=== PATIENT | male | born 1940 | race Caucasian/White ===

== ENCOUNTER 2019-09-05 11:39 | Inpatient (IN) | payer MEDICARE, SELFPAY ==
[2019-09-05] VITALS (11 sets, daily range): BP systolic 93–148; BP diastolic 54–102; PULSE 80–108; RESP 20–30; TEMP 36.5–37; O2SAT 88–97; BMI 24.6
--- NOTE | ~2019-09-05 | XR_ITS ---
XR chest 2V DATE: 09/13/2019 12:21 INDICATION: Worsening lung sounds. Cough, shortness of breath, pneumonia, fluid overload TECHNIQUE: AP and lateral chest COMPARISON: 09/11/2019 AP and lateral chest FINDINGS: Again noted is elevated right leaf of diaphragm. There are patchy infiltrates in the left m id and both lower lung zones, relatively stable since 09/11/2019. Aortic calcification and unfolding. Scoliosis and degenerative changes of the thoracic and lumbar spine. IMPRESSION: Persistent bilateral infiltrates involving left mid and both lower lung zones Reviewed, dictated and finalized at location B. SCREEN CUTTER
--- NOTE | ~2019-09-05 | CT_ITS ---
EXAMINATION: CT brain wo con DATE: 09/08/2019 15:00 INDICATION: Confusion. TECHNIQUE: Computed tomography (CT) of the head was performed without intravenous contrast. The mA wa s adjusted according to patient size. Iterative reconstruction technique was employed. The dose-lengt h product was 681.00 mGy-cm. COMPARISON: Head CT 03/10/2019 FINDINGS: There are scattered areas of low attenuation in the cerebral white matter. There is no intr acranial hemorrhage, acute infarction, or abnormal intracranial mass lesion. The ventricles are lisbet l in size. There are likely changes of ocular lens replacement surgeries. There is mild mucosal thick ening in the paranasal sinuses. There is a trace right mastoid effusion. IMPRESSION: 1. Stable moderate nonspecific cerebral white matter disease, which likely represents chronic small v essel ischemic disease. Reviewed, dictated and finalized at location A. CTOR OF TEENAGE ACTIVITIES IMPRESSION: 1. Stable moderate nonspecific cerebral white matter disease, which likely repr esents chronic small vessel ischemic disease.
--- NOTE | ~2019-09-05 | CT_ITS ---
EXAMINATION: CT abdomen pelvis wo con EXAM DATE: 09/06/2019 10:00 INDICATION: Diarrhea. History of ulcerative colitis. TECHNIQUE: Spiral CT of the abdomen and pelvis was performed without contrast. Axial, coronal and s agittal images were reviewed. The dose-length product (DLP) for this examination was 729.95 mGy-cm. The exposure was tailored according to patient size (auto mA exposure control), and iterative recons truction (ASIR) was used as additional dose reduction technique. Comparison is made to prior examinat ion from 07/17/17. FINDINGS: Study is limited due to patient motion. The liver, spleen, adrenal glands and pancreas ar e unremarkable. Gallbladder is unremarkable. No biliary obstruction. Probable 5 mm left inferior ca lyceal stone. No ureteral stones or hydronephrosis. There are bilateral renal cysts, largest on the r ight side measuring 5 cm. The prostate is unremarkable. The bladder is unremarkable. There is no re troperitoneal or pelvic lymphadenopathy. There is moderate scattered arteriosclerotic disease. Ther e are moderate-sized left inguinal, small right inguinal and small umbilical fat-containing hernias. The appendix is normal. The stomach and small bowel are unremarkable. There is expected amount of c olonic stool. No free intraperitoneal gas. There is cardiomegaly. There is mildly dilated ascendi ng aorta. Patchy right basilar airspace disease, partly atelectasis but suspect also superimposed ed erika or pneumonia. There are trace bilateral pleural effusions. There are no osteoblastic or osteolyt ic lesions identified. Multiple right lateral rib fractures which appears subacute. There is advanced thoracolumbar spondylo sis. There is T12 chronic burst fracture unchanged. There is a fracture through the anterior superior aspect of the T8 vertebral body and the bridging thoracic diffuse idiopathic skeletal hyperostosis w ith sclerosis indicating this is subacute or chronic, but it is new compared to 2017. IMPRESSION: 1. Cardiomegaly, congestion, probable scattered basilar edema or pneumonia. 2. No acute intra-abdominal findings. 3. Fat-containing hernias. 4. Subacute and chronic fractures as above. Reviewed, dictated and finalized at location B. TION AND MEASUREMENT TECHNICIAN
--- NOTE | ~2019-09-05 | XR_ITS ---
EXAMINATION: XR chest 2V DATE: 09/11/2019 13:01 INDICATION: Pneumonia, influenza and hypoxia TECHNIQUE: frontal and lateral views of the chest were obtained. COMPARISON: Chest radiograph dated 09/06/2019 and 04/19/2019 FINDINGS: Chronic elevation of the right hemidiaphragm with colonic interposition. Airspace opacities in the le ft mid to lower and right lower lung zones. No pleural effusion or pneumothorax. The cardiomediastina l silhouette is within normal limits for AP technique. Thoracic dextroscoliosis with mild spondylosis . There are bridging osteophytes at multiple levels in the spine, consistent with diffuse idiopathic skeletal hyperostosis (DISH). Chronic T9 and L1 compression fractures with mild vertebral body height loss at both levels. IMPRESSION: 1. Mild opacities in the left mid to lower and right lower lung zones which could represent atelectas is, mild pulmonary edema, pneumonia or some combination thereof. 2. Chronic elevation of the right hemidiaphragm. Reviewed, dictated and finalized at location A. STANT CENTER MANAGER IMPRESSION: 1. Mild opacities in the left mid to lower and right lower lung zones which cou ld represent atelectasis, mild pulmonary edema, pneumonia or some combination t hereof. 2. Chronic elevation of the right hemidiaphragm.
--- NOTE | ~2019-09-05 | XR_ITS ---
XR chest 2V DATE: 09/05/2019 13:00 INDICATION: Cough and shortness of breath. TECHNIQUE: AP and lateral views COMPARISON: 04/19/2019 PA and lateral chest FINDINGS: Elevated right diaphragm with hepatic colonic interposition. There is mild infiltrate or atelectasis in the left mid and both lower lung zones. No pleural effusio n or pulmonary vascular congestion or pneumothorax is detected. Heart size appears within normal limits. There is aortic calcification. Diffuse idiopathic skeletal hyperostosis of the thoracolumbar spine. Moderate osteopenia. IMPRESSION: Mild infiltrate or atelectasis in the left mid and both lower lung zones Reviewed, dictated and finalized at location A. STRIPER
--- NOTE | ~2019-09-05 | XR_ITS ---
EXAMINATION: XR chest 2V DATE: 09/19/2019 15:29 INDICATION: Worsening breath sounds TECHNIQUE: AP and lateral views of the chest are obtained. COMPARISON: 09/13/2019 FINDINGS: Airspace opacities of the lung bases and left midlung zone persists without significant ap nge. There are trace pleural effusions. No pneumothorax is identified. There is stable cardiomegaly. There is mild thoracic spondylosis. IMPRESSION: 1. Unchanged airspace opacities of the lung bases and left midlung zone,, consistent with atelectasis and pneumonia. 2. Stable cardiomegaly. Reviewed, dictated and finalized at location A. ET MAKER IMPRESSION: 1. Unchanged airspace opacities of the lung bases and left midlung zone,, consi stent with atelectasis and pneumonia. 2. Stable cardiomegaly.
--- NOTE | ~2019-09-05 | CT_ITS ---
EXAMINATION: CT brain wo con DATE: 09/13/2019 11:44 INDICATION: Acute onset unresponsiveness with right facial droop TECHNIQUE: Computed tomography (CT) of the head was performed without intravenous contrast. Sagittal and coronal reconstructions were performed. The mA was adjusted according to patient size. Iterative reconstruction technique was employed. The dose-length product was 681.00 mGy-cm. COMPARISON: head CT dated 09/08/2019 FINDINGS: No acute intracranial hemorrhage, acute infarction or abnormal extra axial fluid collection. There is moderate scattered white matter hypoattenuation consistent with chronic small vessel ischemic diseas e. Symmetric prominence of the sulci and ventricles consistent with mild to moderate age-appropriate diffuse cerebral volume loss. No mass/mass effect. Changes of bilateral intraocular lens replacement. Trace right mastoid effusion. Mild mucosal thickening in the paranasal sinuses with small amount of likely dependently layering mucus in the ethmoid sinuses. IMPRESSION: 1. No acute intracranial process. Per stroke protocol at the cul-de-sac findings to the patient's cherry seChulaist at 11:51 AM. 2. Age-related changes including mild to moderate diffuse volume loss and moderate scattered white ma tter hypoattenuation consistent with chronic small vessel ischemic disease. Reviewed, dictated and finalized at location A. TRIMMER IMPRESSION: 1. No acute intracranial process. Per stroke protocol at the cul-de-sac finding s to the patient's [place] willis at 11:51 AM. 2. Age-related changes including mild to moderate diffuse volume loss and moder ate scattered white matter hypoattenuation consistent with chronic small vessel ischemic disease.
--- NOTE | ~2019-09-05 | US_ITS ---
EXAMINATION: US carotid duplex BI DATE: 09/13/2019 12:24 INDICATION: Transient ischemic episode with acute unresponsive episode and right facial weakness. TECHNIQUE: Grayscale, color Doppler, and pulsed Doppler images of the cervical carotid arteries were obtained. The degree of vessel stenosis is placed in one of the following categories: normal, <50%, 5 0-69%, >=70% but less than near-occlusion, near-occlusion, or total occlusion. Note that percent sten osis relative to normal distal artery lumen diameter is indirectly measured from velocity measurement s as described by Guero, et al. Radiology 2003; [id number]. COMPARISON: None. FINDINGS: RIGHT: The right common carotid artery (CCA) peak systolic velocity (PSV) is 56 cm/s. The right internal car otid artery (ICA) PSV is 58 cm/s. The right ICA end-diastolic velocity (EDV) is 27 cm/s. The right IC A/CCA PSV ratio is 1.0. Grayscale and color Doppler images yield an estimate of <50% diameter reducti on from plaque in the ICA. The external carotid artery (ECA) PSV is 53 cm/s. There is antegrade flow in the right vertebral artery. LEFT: The left CCA PSV is 62 cm/s. The left ICA PSV is 64 cm/s. The left ICA EDV is 24 cm/s. The left ICA/C CA PSV ratio is 1.0. Grayscale and color Doppler images yield an estimate of <50% diameter reduction from plaque in the ICA. The ECA PSV is 60 cm/s. There is antegrade flow in the left vertebral artery. IMPRESSION: 1. <50% stenosis in the right internal carotid artery. 2. <50% stenosis in the left internal carotid artery. Reviewed, dictated and finalized at location A. CH WEAVER
--- NOTE | ~2019-09-05 | XR_ITS ---
EXAMINATION: XR chest 2V DATE: 09/06/2019 10:09 INDICATION: Pulmonary edema. Worsened lung sounds. TECHNIQUE: Frontal and lateral views of the chest were obtained. COMPARISON: Chest 2 views 09/05/2019, 10/28/2013, CT abdomen and pelvis 09/06/2019 FINDINGS: Again seen is chronic elevation of right hemidiaphragm. There are airspace opacities at rig ht lung base and in left mid and lower lung zones. No pleural effusion or pneumothorax. The heart siz e is normal. IMPRESSION: 1. Chronic elevation of right hemidiaphragm with airspace opacities at right lung base, likely atelec tasis. 2. Unchanged mild airspace opacities in left mid and lower lung zones, consistent with atelectasis ve rsus pulmonary edema versus pneumonia. Reviewed, dictated and finalized at location A. WORKER IMPRESSION: 1. Chronic elevation of right hemidiaphragm with airspace opacities at right naty ng base, likely atelectasis. 2. Unchanged mild airspace opacities in left mid and lower lung zones, consiste nt with atelectasis versus pulmonary edema versus pneumonia.
--- NOTE | ~2019-09-05 | US_ITS ---
EXAMINATION: US venous doppler LE EXAM DATE: 09/14/2019 15:41 INDICATION: Pulmonary embolism right upper lobe. TECHNIQUE: Multiple grayscale, color flow and Doppler images of the lower extremity deep venous syste ms bilaterally were obtained and reviewed. There is no prior study for comparison. FINDINGS: RIGHT SIDE Common femoral: -------- Normal. Profunda femoral: ------- Normal. Femoral: Normal. Popliteal: Normal. Posterior tibial: --------- Normal. Peroneal: Normal. Gastrocnemius: Not visualized. Soleus: Not visualized. Greater saphenous: ----- Normal. Lesser saphenous: ------ Not visualized. LEFT SIDE Common femoral: -------- Normal. Profunda femoral: ------- Normal. Femoral: Normal. Popliteal: Normal. Posterior tibial: --------- Normal. Peroneal: Normal. Gastrocnemius: Not visualized. Soleus: Thrombosed. Greater saphenous: ----- Normal. Lesser saphenous: ------Thrombosed. IMPRESSION: 1. Positive for left soleus and saphenous venous thrombus. 2. No right DVT. Reviewed, dictated and finalized at location A. CTOR OF EARLY CHILDHOOD
--- NOTE | ~2019-09-05 | MR_ITS ---
EXAMINATION: MR brain/brain stem wo con EXAM DATE: 09/14/2019 13:06 INDICATION: Unresponsive. TECHNIQUE: Magnetic resonance imaging (MRI) of the brain/brain stem obtained without contrast. Sagitt al T1, axial diffusion, gradient echo (T2*), T1, T2, FLAIR sequences obtained. Comparison is made to prior examination from 05/22/2016. FINDINGS: There are no areas of restricted diffusion to suggest acute infarction. There is no acute hemorrhage seen on the T2*, a hemosiderin sensitive sequence. No intraparenchymal brain mass lesion. There is moderate periventricular and subcortical T2/FLAIR signal hyperintensity, nonspecific but pr obably related to small vessel ischemic disease (microangiopathy). There is moderate prominence of the sulci and ventricles related to cerebral atrophy. There are no extra-axial collections. Flow v oids are seen in the cerebral arteries on the T2-weighted sequences consistent with their expected pa tency. Patient has had bilateral ocular lens surgery. Soft tissue is unremarkable. There is mild t o moderate right sphenoid mucoperiosteal thickening with some fluid in the sinus. Trace mastoid fluid . IMPRESSION: 1. No acute intracranial findings. 2. Chronic age related findings. 3. Right sphenoid mucoperiosteal thickening and some fluid. Reviewed, dictated and finalized at location A. ISITION MANAGER
--- NOTE | ~2019-09-05 | CT_ITS ---
EXAMINATION: CTA chest PE protocol EXAM DATE: 09/14/2019 14:14 INDICATION: Hypoxia. Passed out. TECHNIQUE: Spiral CTA of the chest (pulmonary arteries) was performed with 100 cc Omnipaque 350 intr avenous contrast injection. Images were acquired during the pulmonary arterial phase. Coronal maxi mum intensity projection 3D-reconstructions were created by the technologist on dedicated workstation . Axial, coronal and sagittal reformatted images were reviewed. The dose-length product (DLP) for t his examination was 684.01 mGy-cm. The exposure was tailored according to patient size (auto mA exp osure control), and iterative reconstruction (ASIR) was used as additional dose reduction technique. 04/21/2019 FINDINGS: There is interval development of small pulmonary embolism in the right main pulmonary art jelena extending into several right upper lobe segmental arteries, low clot burden. No thoracic aortic d issection. There is patchy left-sided groundglass airspace disease which could be pneumonia or edema , new finding compared to prior study. There is elevated right hemidiaphragm with adjacent subsegment al atelectasis of the right lower lobe. The main, central pulmonary arteries are dilated which can indicate elevated pulmonary arterial press ure, pulmonary arterial hypertension. There are no pleural or pericardial effusions. Tracheobronc hial tree is patent. There is no mediastinal, hilar or axillary lymphadenopathy. There is no pneu mothorax. There is cardiomegaly. There is mild coronary arterial calcification, arterial sclerosis . Upper abdomen is unremarkable. There is thoracic spondylosis without osteoblastic or osteolytic lesions identified. IMPRESSION: 1. Positive for small right-sided pulmonary embolism. 2. Patchy left-sided groundglass pneumonia or edema. 3. Chronic right hemidiaphragm elevation, adjacent atelectasis. 4. Cardiomegaly. 5. Dilated pulmonary arteries. I left a message for Dr. Urmila Cohen PA-C on 09/14/2019 14:24 CANINE SERVICE TEACHER. I provided my direct number, requested call back to discuss findings in this case. I discussed pulmonary embolism with Renate with hospitalist service at 09/14/2019 14:49 CANINE SERVICE TEACHER. Reviewed, dictated and finalized at location A. NE SERVICE TEACHER IMPRESSION: 1. Positive for small right-sided pulmonary embolism. 2. Patchy left-sided groundglass pneumonia or edema. 3. Chronic right hemidiaphragm elevation, adjacent atelectasis. 4. Cardiomegaly. 5. Dilated pulmonary arteries. I left a message for Dr. Urmila Cohen PA-C on 09/14/2019 14:24 CANINE SERVICE TEACHER. I prov ided my direct number, requested call back to discuss findings in this case. I discussed pulmonary embolism with Renate with hospitalist service at 09/14/19 14:49 CANINE SERVICE TEACHER.
--- NOTE | 2019-09-05 11:43 | ECG_ITS ---
Measurements Intervals May Rate: 106 P: IL: 0 QRS: -16 QRSD: 94 T: -12 QT: 318 QTc: 424 Interpretive Statements SINUS TACHYCARDIA ATRIAL PREMATURE COMPLEX RSR' IN V1 OR V2, CONSIDER RIGHT VENTRICULAR HYPERTROPHY OR RIGHT VCD VOLTAGE CRITERIA FOR LVH MINIMAL Q WAVES- LATERAL LEADS BORDERLINE ST-T WAVE ABNORMALITY- DIFFUSE LEADS BASELINE ARTIFACT- I, II, III, AVR, AVL, AVF, V1-V6 ABNORMAL ECG Electronically Signed On 09-05-2019 16:34:53 PLUMBING ASSEMBLER INSTALLER by Nolan Valladares D.O.
[2019-09-05 12:14] LABS: Basophils Percent Auto 0.1 % (0.2-1.2); Eosinophils Percent Auto 0.2 % (0-4.4); Hematocrit 34.5 % (42.0-52.0); Hemoglobin 10.6 g/dL (14.0-18.0); Immature Granulocyte Absolute 0.08 K/mm3 (0.00-0.031); Lymphocytes Absolute Auto 0.36 K/mm3 (0.9-3.2); Lymphocytes Percent Auto 4.4 % (18.3-44.2); Mean Corpuscular HGB Conc 30.7 g/dl (32-36); Mean Corpuscular Hemoglobin 29.4 pg (26-34); Mean Corpuscular Volume 95.6 fl (80-100); Mean Platelet Volume 10.9 fl (7.4-10.4); Monocytes Absolute Auto 0.4 K/mm3 (0.1-0.6); Monocytes Percent Auto 4.9 % (2.6-8.5); Neutrophils Absolute Auto 7.2 K/mm3 (1.3-6.7); Neutrophils Percent Auto 89.4 % (45.5-73.1); Nucleated Red Blood Cells Perc 0.2 % (0.0-0.2); Platelet Count Result 128 k/mm3 (150-375); Red Blood Count 3.61 M/mm3 (4.6-6.20); Red Cell Distribution Width 18.5 % (11.5-14.5); White Blood Count 8.1 K/mm3 (4.5-10.0)
--- NOTE | 2019-09-05 12:23 | ED.AMS ---
HPI - Altered Mental Status General Chief Complaint: Altered Mental Status Stated Complaint: ams/cough Time Seen by Provider: 09/05/19 12:16 Related Data Home Medications Medication Instructions Recorded Confirmed Poly-Iron EVERY OTHER DAY 06/03/19 aspirin 81 mg PO DAILY 06/03/19 06/10/19 carvedilol 3.125 mg PO BID 06/03/19 06/10/19 cholecalciferol (vitamin D3) 4,000 unit PO DAILY 06/03/19 06/10/19 [Vitamin D3] cyanocobalamin (vitamin B-12) 1,000 mcg PO DAILY 06/03/19 06/10/19 [Vitamin B-12] denosumab [Prolia] 60 mg SUBCUT [id number] 06/03/19 06/10/19 folic acid 1 mg PO DAILY 06/03/19 06/10/19 losartan 100 mg PO DAILY 06/03/19 06/10/19 mesalamine [Lialda] 1.2 g PO QID 06/03/19 multivitamin 1 tablet PO DAILY 06/03/19 06/10/19 prednisone 40 mg PO DAILY 06/03/19 06/10/19 azathioprine 150 mg PO DAILY 09/05/19 gabapentin 600 mg PO DAILY 09/05/19 Allergies Allergy/AdvReac Type Severity Reaction Status Date / Time No Known Allergies Allergy Unknown Verified 09/05/19 11:50 [facility] Past Medical History Medical History (Updated 09/05/19 @ 12:26 by Bart Messer) Cataracts, bilateral Cirrhosis GERD (gastroesophageal reflux disease) H/O: HTN (hypertension) Hx of ulcerative colitis Hypertension OA (osteoarthritis) Peripheral neuropathy Ulcerative colitis Umbilical hernia Surgical History Surgical History (Updated 09/05/19 @ 12:26 by Bart Messer) History of umbilical hernia repair Hx of bilateral cataract extraction Social History Social History (Updated 09/05/19 @ 12:27 by Bart Messer) Smoking status: Never smoker Gender identity (if verbalized by the patient): Male Comments PCP: Dr. Lane. Course Vital Signs Vital signs: Vital Signs Temperature 98.6 F 09/05/19 11:40 Pulse Rate 108 H 09/05/19 11:40 Respiratory Rate 30 H 09/05/19 11:40 Blood Pressure 148/102 H 09/05/19 11:40 Pulse Oximetry 88 L 09/05/19 11:40 Temperature 98.6 F 09/05/19 11:40 Pulse Rate 102 H 09/05/19 11:44 Respiratory Rate 20 09/05/19 11:44 Blood Pressure 148/102 H 09/05/19 11:40 Pulse Oximetry 97 09/05/19 11:44 MDM - Altered Mental Status Lab Data Result diagrams: 09/05/19 12:04 09/05/19 12:04 Labs: Lab Results 09/05/19 09/05/19 Range/Units 12:04 12:04 WBC Pending RBC Pending Hgb Pending Hct Pending MCV Pending MCH Pending MCHC Pending RDW Pending Plt Count Pending MPV Pending Immature Gran % (Auto) Pending Neut % (Auto) Pending Lymph % (Auto) Pending Bullock % (Auto) Pending Eos % (Auto) Pending Baso % (Auto) Pending Lymph # (Auto) Pending Bullock # (Auto) Pending Eos # (Auto) Pending Baso # (Auto) Pending Abs Immat Gran (auto) Pending Absolute Neuts (auto) Pending Absolute Nucleated RBC Pending Nucleated RBC % Pending Sodium Pending Potassium Pending Chloride Pending Carbon Dioxide Pending BUN Pending Creatinine Pending Estim Creat Clear Calc Pending Estimated GFR Pending Glucose Pending Calcium Pending Total Bilirubin Pending AST Pending ALT Pending Alkaline Phosphatase Pending Total Protein Pending Albumin Pending Influenza A Screen Negative Reference Range: Negative Influenza B Screen Positive Reference Range: Negative Discharge Plan Discharge Prescriptions: No Action prednisone 20 mg Tablet 40 mg PO DAILY RF: 0 mesalamine [Lialda] 1.2 gram Tablet,Delayed Release (Dr/Ec) 1.2 g PO QID RF: 0 multivitamin Tablet 1 tablet PO DAILY RF: 0 cyanocobalamin (vitamin B-12) [Vitamin B-12] 1,000 mcg Tablet 1,000 mcg PO DAILY RF: 0 folic acid 1 mg Tablet 1 mg PO DAILY RF: 0 losartan 100 mg Tablet 100 mg PO DAILY RF: 0 Vitamin D3 4,000 unit Capsule 4,000 unit PO DAILY RF: 0 Poly-Iron
[2019-09-05 12:24] LABS: Alanine Aminotransferase 15 U/L (4-50); Albumin Level 3.1 g/dL (3.5-5.1); Alkaline Phosphatase 57 U/L (38-126); Aspartate Amino Transferase 32 U/L (17-59); Bilirubin,Total 0.8 mg/dL (0.2-1.3); Blood Urea Nitrogen 31 mg/dL (9-20); Calcium 8.7 mg/dL (8.4-10.2); Carbon Dioxide 32 mmol/L (22-30); Chloride 100 mmol/L (98-107); Estimated Glomerular Filt Rate > 60; Glucose 100 mg/dL (75-110); Potassium 3.3 mmol/L (3.4-5.0); Sodium 141 mmol/L (137-145)
--- NOTE | 2019-09-05 12:41 | ED.NAVMDI ---
HPI - Nausea/Vomiting/Diarrhea General Chief complaint: Nausea/Vomiting/Diarrhea Stated complaint: ams/cough Time Seen by Provider: 09/05/19 12:16 Source: patient, family () and RN notes reviewed Mode of arrival: EMS Limitations: no limitations History of Present Illness HPI Narrative: A 78 y/o male presents to the ED via EMS after having one episode of diarrhea this morning. He reports worsening associated generalized weakness and a dry cough since yesterday. He denies any ABD pain, rectal bleeding, changes in appetite, fevers, chills, N/V, and any other medical complaints at this time. MD elicited complaint: diarrhea Onset (ago): hour(s) (this morning) Associated nausea: No Associated abdominal pain: No Location of pain: none Associated symptoms: cough (dry) and weakness (generalized) Related Data Home Medications Medication Instructions Recorded Confirmed Poly-Iron EVERY OTHER DAY 06/03/19 aspirin 81 mg PO DAILY 06/03/19 06/10/19 carvedilol 3.125 mg PO BID 06/03/19 06/10/19 cholecalciferol (vitamin D3) 4,000 unit PO DAILY 06/03/19 06/10/19 [Vitamin D3] cyanocobalamin (vitamin B-12) 1,000 mcg PO DAILY 06/03/19 06/10/19 [Vitamin B-12] denosumab [Prolia] 60 mg SUBCUT [id number] 06/03/19 06/10/19 folic acid 1 mg PO DAILY 06/03/19 06/10/19 losartan 100 mg PO DAILY 06/03/19 06/10/19 mesalamine [Lialda] 1.2 g PO QID 06/03/19 multivitamin 1 tablet PO DAILY 06/03/19 06/10/19 prednisone 40 mg PO DAILY 06/03/19 06/10/19 azathioprine 150 mg PO DAILY 09/05/19 gabapentin 600 mg PO DAILY 09/05/19 Allergies Allergy/AdvReac Type Severity Reaction Status Date / Time No Known Allergies Allergy Unknown Verified 09/05/19 11:50 Review of Systems Review of Systems: All systems reviewed & are unremarkable except as noted in HPI and below Constitutional: Constitutional: Denies chills, Denies fatigue, Denies fever(s), Denies headache(s), Denies night sweats and Reports weakness (generalized) Eyes: Eyes: Denies change in vision, Denies loss of vision and Denies other visual disturbances ENT: Denies headache(s), Denies hoarseness, Denies epistaxis, Denies nasal congestion and Denies sore throat Cardiovascular: Cardiovascular: Denies chest pain, Denies leg edema, Denies palpitations and Denies dyspnea Respiratory: Respiratory: Reports cough (dry), Denies dyspnea and Denies wheezing Gastrointestinal: Gastrointestinal: Denies abdominal pain, Reports diarrhea (x1), Denies nausea and Denies vomiting Genitourinary: Genitourinary: Denies hematuria, Denies dysuria and Denies urinary frequency Musculoskeletal: Musculoskeletal: Denies abnormal gait, Denies deformity, Denies joint swelling, Denies muscle weakness and Denies numbness Integumentary/Breasts: Skin/Breast: Denies rash, Denies unusual bruising and Denies wounds Neurologic: Denies abnormal gait, Denies headache(s), Denies focal weakness, Denies loss of vision and Denies numbness Psychiatric: Psychiatric: Reports no additional psychiatric complaints Endocrine: Endocrine: Denies fatigue and Denies palpitations Hematologic/Lymphatic: Hematologic/Lymphatic: Denies easy bleeding and Denies easy bruising Allergic/Immunologic: Allergic/Immunologic: Denies wheezing PMFSH Past Medical History Medical History (Updated 09/05/19 @ 15:31 by Volodymyr Figueroa MD) Cataracts, bilateral Cirrhosis GERD (gastroesophageal reflux disease) H/O: HTN (hypertension) Hx of ulcerative colitis Hypertension OA (osteoarthritis) Peripheral neuropathy Ulcerative colitis Umbilical hernia Surgical History Surgical History (Updated 09/05/19 @ 12:26 by Bart Messer) History of umbilical hernia repair Hx of bilateral cataract extraction Social History Social History (Updated 09/05/19 @ 12:27 by Bart Messer) Smoking status: Never smoker Gender identity (if verbalized by the patient): Male Exam Const: General: healthy appearing (elderly ), no acute distress and well developed Nutriti
[2019-09-05 12:50] LABS: Alveolar/Arterial O2 Gradient 51.7 mmHg; Base Excess ABG 2.4 mEq/l (+/-2.0); Fractional Inspired Oxygen 21 %; HCO3 ABG 26.7 mEq/l (22.0-26.0); Oxygen Content ABG 13.7 %vol (16.0-22.0); Oxyhemoglobin 84.6 % THb (90.0-100.0); PCO2 ABG 40.3 mmHg (35.0-45.0); PO2 FiO2 Ratio Arterial Blood 2.37 %; Total Hemoglobin 11.5 g/dL (12.0-18.0); pH ABG 7.439 (7.350-7.450)
[2019-09-05 12:52] LABS: Device ROOM AIR; Modified Allen's Test Pass; Oxygen Saturation ABG 86.6 % (95.0-100.0); PO2 ABG 49.8 mmHg (80.0-100.0); Site Drawn RIGHT RADIAL
[2019-09-05] MEDS: ALBUTEROL SULFATE NEB 2.5 MG/0.5 ML INH 5 MG INHALATION ×2 (13:01→21:13)
[2019-09-05] MEDS: IPRATROPIUM BR 0.02% INH SOLN 0.5 MG/2.5 ML VIAL INHALATION ×2 (13:01→21:13)
[2019-09-05] MEDS: AZITHROMYCIN 250 MG TABLET 500 MG PO (13:56)
[2019-09-05] MEDS: OSELTAMIVIR PHOSPHATE 75 MG CAP PO ×2 (13:56→21:30)
[2019-09-05] MEDS: ACETAMINOPHEN 500 MG TABLET 1000 MG PO (13:56)
[2019-09-05] MEDS: LACTATED RINGERS 1,000 ML 999 ML IV CONT (14:27)
[2019-09-05 14:44] LABS: Add Urine Microscopic? YES; Appearance Urine Clear (Clear); Bacteria Urine Trace /hpf; Bilirubin Urine Negative (Negative); Blood Urine 1+ (Negative); Calcium Oxalate Crystals Urine Present /hpf; Color Urine Yellow (Yellow); Glucose Urine UA Negative (Negative); Ketones Urine Negative (Negative); Leukocyte Esterase Ur Negative LEU/UL (Negative); Mucus Urine Few /lpf; Nitrate Urine Negative (Negative); Protein Urine 1+ mg/dL (Negative); RBC Urine 0-2 /hpf (0-2); Specific Grav Ur 1.023 (1.001-1.035); Squamous Epithelial Cell Urine Rare /hpf (Few); Urobilinogen Urine Negative mg/dL (<2.0)
[2019-09-05 15:37] LABS: Lactic Acid Reflex 1.4 mmol/L (0.7-2.1)
--- NOTE | 2019-09-05 15:45 | ADMGEN ---
This patient, Alex Wakefield II, was admitted to 2 Medical Room 258-01. Patient/family oriented to hospital policies and general routines including ID bracelet, bed and alarms, visiting hours, pain management, procedures, bathroom and other care routines, personal items, smoking policy, room service/diet, and visiting hours. Valuables list has been completed. Information on how to activate the Rapid Response Team has been discussed. Patient/Family are encouraged to report perceived risks to care and to ask questions if they do not understand what they are told or what they should do.
[2019-09-05] MEDS: LACTATED RINGERS 1,000 ML 125 ML IV CONT (16:18)
[2019-09-05] MEDS: HYDROCORTISONE SODIUM SUCCINATE 100 MG/2 ML VIAL IV PUSH (16:19)
[2019-09-05] MEDS: FAMOTIDINE 20 MG/2 ML VIAL IV PUSH (21:31)
[2019-09-06] VITALS (14 sets, daily range): BP systolic 120–180; BP diastolic 64–100; PULSE 20–89; RESP 18–77; TEMP 36.1–36.7; O2SAT 86–100; BMI 10.0
[2019-09-06] MEDS: LACTATED RINGERS 1,000 ML 125 ML IV CONT (01:56)
[2019-09-06] MEDS: IPRATROPIUM BR 0.02% INH SOLN 0.5 MG/2.5 ML VIAL INHALATION ×4 (04:00→20:31)
[2019-09-06] MEDS: ALBUTEROL SULFATE NEB 2.5 MG/0.5 ML INH 5 MG INHALATION ×4 (04:00→20:31)
[2019-09-06 06:07] LABS: Eosinophils Percent Auto 0.2 % (0-4.4); Hematocrit 32.1 % (42.0-52.0); Hemoglobin 9.7 g/dL (14.0-18.0); Immature Granulocyte Absolute 0.06 K/mm3 (0.00-0.031); Immature Platelet Fraction Pct 4.3 % (0.9-11.2); Lymphocytes Absolute Auto 0.55 K/mm3 (0.9-3.2); Lymphocytes Percent Auto 9.3 % (18.3-44.2); Mean Corpuscular HGB Conc 30.2 g/dl (32-36); Mean Corpuscular Hemoglobin 29.5 pg (26-34); Mean Corpuscular Volume 97.6 fl (80-100); Mean Platelet Volume 11.4 fl (7.4-10.4); Monocytes Absolute Auto 0.2 K/mm3 (0.1-0.6); Monocytes Percent Auto 2.7 % (2.6-8.5); Neutrophils Absolute Auto 5.2 K/mm3 (1.3-6.7); Neutrophils Percent Auto 86.8 % (45.5-73.1); Platelet Count Result 123 k/mm3 (150-375); Red Blood Count 3.29 M/mm3 (4.6-6.20); White Blood Count 5.9 K/mm3 (4.5-10.0)
[2019-09-06] MEDS: POTASSIUM CHLORIDE 20 MEQ TABLET 40 MEQ PO (06:13)
[2019-09-06 06:17] LABS: Blood Urea Nitrogen 28 mg/dL (9-20); Calcium 8.1 mg/dL (8.4-10.2); Carbon Dioxide 32 mmol/L (22-30); Chloride 98 mmol/L (98-107); Estimated CRCL calculation 72 ml/min; Estimated Glomerular Filt Rate > 60; Glucose 75 mg/dL (75-110); Potassium 3.2 mmol/L (3.4-5.0); Sodium 139 mmol/L (137-145)
--- NOTE | 2019-09-06 07:02 | PM.IMHP ---
H&P: HPI History of Present Illness Chief complaint: Influenza B/Pnuemonia/Hypoxia Narrative: Alex Wakefield II is a 78 year old male with a past medical history of ulcerative colitis, hypertension, and cirrhosis who presented emergency room for generalized aches and pains as well as diarrhea. Patient states that he came to the emergency room because he had 2 episodes of watery nonbloody diarrhea that started yesterday. This was associated with aching pains in his arms, back and legs and has been feeling fatigued. He said his was diagnosed with the influenza and he thinks he may have had influenza as well. He states that he started a prednisone taper for his ulcerative colitis about 30 days ago and that he sees Dr. Hewitt. He had a big flare at the time but has been improving but now he is having diarrhea. He has had a low appetite with this but no abdominal pain, rectal bleeding or cramping. He said his elbows have been painful and the right one has been swollen for at least 3 months. Since he has been the hospital he has developed a cough but has not really felt shortness of breath but has needed oxygen therapy which is not like him. He does not usually use oxygen at home. He denies fevers, chills, chest pain, abdominal pain, headache, nausea, vomiting, sore throat, or ear pain. He says that he feels unsteady on his feet at times but his last fall was around Thanksgiving. He has had some leg swelling for the last 3 months. This is not any better in the morning or at night and he has never been diagnosed with a blood clot or CHF that he knows of. At this time he says he feels really crackly and wheezy which is not like him. His cough is dry but occasionally produce a sputum. Review of Systems Review of Systems: All systems reviewed & are unremarkable except as noted in HPI and below PMFSH Past Medical History Medical History (Updated 09/06/19 @ 07:19 by Urmial Cohen PA-C) Cataracts, bilateral Cirrhosis GERD (gastroesophageal reflux disease) H/O: HTN (hypertension) Hx of ulcerative colitis Hypertension OA (osteoarthritis) Peripheral neuropathy Ulcerative colitis Umbilical hernia Surgical History Surgical History (Updated 09/06/19 @ 07:16 by Urmila Cohen PA-C) History of umbilical hernia repair Hx of bilateral cataract extraction Status post right partial knee replacement Family History Family History (Updated 09/05/19 @ 16:00 by Lala Macedo RN) Other Unknown family medical history Social History Social History (Updated 09/06/19 @ 07:16 by Urmila Cohen PA-C) Social History: Patient lives in were known OA with his . He is a nonsmoker and quit drinking alcohol and smoking cigarettes 40 years ago. His surrogate decision maker would be his Glo. Smoking packs per day: 2 Smoking cigarettes per day: 40.0 Years smoked: 30 Smoking pack-years: 60.00 Smoking status: Former smoker Tobacco type: cigarettes Alcohol intake: never Substance use: never Substance use type: does not use Gender identity (if verbalized by the patient): Male Spiritual care concerns: No Agree to blood products: Yes Meds Home Medications and Allergies Home Medications Medication Instructions Recorded Confirmed Type acetaminophen [Tylenol Arthritis 650 mg PO Q8H PRN 09/05/19 09/05/19 History Pain] aspirin 81 mg PO DAILY 09/05/19 09/05/19 History azathioprine 150 mg PO DAILY 09/05/19 09/05/19 History carvedilol [Coreg] 3.125 mg PO BID 09/05/19 09/05/19 History cholecalciferol (vitamin D3) 4,000 unit PO DAILY 09/05/19 09/05/19 History [Vitamin D3] cyanocobalamin (vitamin B-12) 1,000 mcg PO DAILY 09/05/19 09/05/19 History [Vitamin B-12] denosumab [Prolia] 60 mg SUBCUT [id number] 09/05/19 09/05/19 History folic acid 1 mg PO DAILY 09/05/19 09/05/19 History gabapentin 600 mg PO DAILY 09/05/19 09/05/19 History losartan 100 mg PO DAILY 09/05/19 09/05/19 History mesalamine
[2019-09-06] MEDS: FUROSEMIDE INJ 40 MG/4 ML VIAL IV PUSH (09:22)
[2019-09-06] MEDS: FAMOTIDINE 20 MG/2 ML VIAL IV PUSH ×2 (09:23→21:20)
[2019-09-06] MEDS: LOSARTAN POTASSIUM 100 MG TABLET PO (09:25)
[2019-09-06] MEDS: POLYSACCHARIDE IRON COMPLEX 150 MG CAPSULE 450 MG PO (09:25)
[2019-09-06] MEDS: carvediloL 3.125 MG TABLET PO ×2 (09:27→21:12)
[2019-09-06] MEDS: ASPIRIN 81 MG CHEWABLE TABLET PO (09:27)
[2019-09-06] MEDS: OSELTAMIVIR PHOSPHATE 75 MG CAP PO ×2 (09:27→21:12)
[2019-09-06] MEDS: AZITHROMYCIN 250 MG TABLET PO (09:27)
[2019-09-06] MEDS: GABAPENTIN 300 MG CAPSULE 600 MG PO (09:28)
[2019-09-06] MEDS: CYANOCOBALAMIN 1,000 MCG TABLET 1000 MCG PO (09:28)
[2019-09-06] MEDS: FOLIC ACID 1 MG TABLET PO (09:28)
[2019-09-06] MEDS: methylPREDNISolone SOD SUCC 125 MG VIAL 60 MG IV PUSH ×3 (09:30→21:18)
[2019-09-06 12:09] LABS: Alveolar/Arterial O2 Gradient 105.4 mmHg; Base Excess ABG 3.8 mEq/l (+/-2.0); Carboxyhemoglobin 0.3 % THb (0-2.0); Fractional Inspired Oxygen 28 %; HCO3 ABG 27.7 mEq/l (22.0-26.0); Methemoglobin ABG 0.2 %THb (0-1.5); Oxygen Content ABG 13.3 %vol (16.0-22.0); Oxyhemoglobin 85.4 % THb (90.0-100.0); PCO2 ABG 38.8 mmHg (35.0-45.0); PO2 FiO2 Ratio Arterial Blood 1.73 %; Reduced Hemoglobin 14.1 %THb (0-5.0); Total Hemoglobin 11.1 g/dL (12.0-18.0); pH ABG 7.471 (7.350-7.450)
[2019-09-06 12:12] LABS: PO2 ABG 48.5 mmHg (80.0-100.0)
[2019-09-06 12:13] LABS: Device NASAL CANNULA; Modified Allen's Test Pass; Oxygen Saturation ABG 86.8 % (95.0-100.0); Site Drawn RIGHT RADIAL
[2019-09-06 13:06] LABS: Hematocrit 33.1 % (42.0-52.0); Hemoglobin 10.1 g/dL (14.0-18.0); Mean Corpuscular HGB Conc 30.5 g/dl (32-36); Mean Corpuscular Hemoglobin 29.4 pg (26-34); Mean Corpuscular Volume 96.2 fl (80-100); Mean Platelet Volume 10.5 fl (7.4-10.4); Platelet Count Result 124 k/mm3 (150-375); Red Blood Count 3.44 M/mm3 (4.6-6.20); Red Cell Distribution Width 18.9 % (11.5-14.5); White Blood Count 7.6 K/mm3 (4.5-10.0)
[2019-09-06 13:19] LABS: Blood Urea Nitrogen 28 mg/dL (9-20); Calcium 8.3 mg/dL (8.4-10.2); Carbon Dioxide 33 mmol/L (22-30); Chloride 96 mmol/L (98-107); Estimated CRCL calculation 65 ml/min; Estimated Glomerular Filt Rate > 60; Glucose 80 mg/dL (75-110); Potassium 3.6 mmol/L (3.4-5.0); Sodium 138 mmol/L (137-145)
[2019-09-06 13:20] LABS: Lactic Acid Reflex 1.2 mmol/L (0.7-2.1)
[2019-09-06 13:20] LABS: Ammonia < 9 umol/L (9-30)
[2019-09-06 13:34] LABS: Band Neutrophils Percent 2 % (0-6); Lymphocytes Absolute Manual 0.38 K/mm3 (1.1-4.5); Monocytes Absolute Manual 0.07 K/mm3 (0.1-0.90); Monocytes Percent Manual 1 % (3-9); Neutrophils Absolute Manual 7.14 K/mm3 (1.3-6.7); Neutrophils Percent Manual 92 % (46-73); Stomatocytes 2+ (NORMAL); Total Cells Counted 100
[2019-09-06 13:49] LABS: Glucose Point of Care 70 (65-105)
[2019-09-06 14:01] LABS: Thyroid Stimulating Hormone Reflex 0.921 uIU/mL (0.465-4.68)
[2019-09-07] VITALS (7 sets, daily range): BP systolic 124–160; BP diastolic 75–100; PULSE 76–94; RESP 18–24; TEMP 36–36.1; O2SAT 97–99
[2019-09-07] LABS: Alveolar/Arterial O2 Gradient 53.2 mmHg; Base Excess ABG 3.8 mEq/l (+/-2.0); Fractional Inspired Oxygen 21 %; HCO3 ABG 28.3 mEq/l (22.0-26.0); Oxygen Content ABG 13.2 %vol (16.0-22.0); Oxyhemoglobin 83.4 % THb (90.0-100.0); Total Hemoglobin 11.3 g/dL (12.0-18.0); pH ABG 7.446 (7.350-7.450)
--- NOTE | 2019-09-07 | ECHO_ITS ---
Patient Info Name: Alex Wakefield Age: 78 years : 1940 Gender: Male Ht: 73 in Wt: 186 lbs BSA: 2.09 m2 HR: 74 bpm BP: 180 / 100 mmHg Technical Quality: Good Exam Date: 09/07/2019 10:48 AM Exam Location: [facility] Pul[facility] Patient Status: Inpatient Admit Date: 09/05/2019 Staff Ordering Physician: Urmila Cohen PA-C Logging Superintendent: Jonathan Calero RDCS, RT Attending Provider: Pilar North PA-C Referring Physician: Vicki ALVARADO; Exam Type: CA echo doppler color flow Study Info Indications R60.0 - Localized edema Complete two-dimensional, color flow and Doppler transthoracic echocardiogram is performed. Summary 1. Left ventricular chamber dimension is normal. 2. Left ventricular systolic function is normal, estimated at 60-65%. 3. There is mildly increased left ventricular wall thickness. 4. The left ventricular diastolic function is abnormal. 5. E' 0.04 suggests diastolic dysfunction based on tissue doppler. 6. Left atrial chamber dimension is mildly enlarged. 7. There is mild aortic valve sclerosis. 8. There is mild aortic valve regurgitation. 9. There is trace mitral valve regurgitation. 10. The aortic root size at the sinus of Valsalva is mildly dilated at 4.2 cm. Left Ventricle E' 0.04 suggests diastolic dysfunction based on tissue doppler. Left ventricular chamber dimension is normal. Left ventricular systolic function is normal, estimated at 60-65%. There is mildly increased left ventricular wall thickness. The left ventricular diastolic function is abnormal. Right Ventricle Right ventricular chamber dimension is normal. Right ventricular systolic function is normal. Left Atria Left atrial chamber dimension is mildly enlarged. Right Atria Right atrial chamber dimension is normal. Aortic Valve The aortic valve is trileaflet. There is mild aortic valve sclerosis. There is no aortic valve stenosis. There is mild aortic valve regurgitation. Pulmonic Valve There is no pulmonic regurgitation. Mitral Valve There is no mitral valve stenosis. There is trace mitral valve regurgitation. Tricuspid Valve There is no tricuspid valve regurgitation. Pericardium/Pleural There is no pericardial effusion. Inferior Vena Cava Normal inferior vena cava with >50% collapse upon inspiration consistent with normal right atrial pressure, 5 mmHg. Aorta The aortic root size at the sinus of Valsalva is mildly dilated at 4.2 cm. Left Ventricular Outflow Tract Name Value Normal LVOT 2D LVOT Diameter 2.2 cm LVOT Doppler LVOT Peak Velocity 70 cm/s LVOT Peak Gradient 2 mmHg LVOT Mean Gradient 1 mmHg LVOT VTI 19 cm LVOT VTI/AV VTI Ratio 0.7 LVOT Stroke Volume 72 ml LVOT CO 5.4 l/min LVOT CI 2.6 l/min/m2 Pulmonic Valve Name Value
[2019-09-07 00:01] LABS: PO2 ABG 46.2 mmHg (80.0-100.0)
[2019-09-07 00:02] LABS: Device ROOM AIR; Modified Allen's Test Pass; Oxygen Saturation ABG 83.9 % (95.0-100.0); Site Drawn RIGHT RADIAL
--- NOTE | 2019-09-07 00:10 | PC.NURSE ---
ABG OBTAINED AND CRITICAL RESULTS RECEIVED. PT FIGHTING CARE AND WILL NOT KEEP O2 IN PLACE. He keeps pulling it off. Pt is hallucinating and picking on his hand and throwing . Rapid response called.
--- NOTE | 2019-09-07 00:20 | PC.NURSE ---
Pt remains agited and will not put on O2 - O2 saturation in the 80'2. Nupur stated she would look at his chart after finishing with an ICU pt. Call placed to and she stated she would come in.
[2019-09-07] MEDS: methylPREDNISolone SOD SUCC 125 MG VIAL 60 MG IV PUSH ×4 (02:54→22:34)
[2019-09-07] MEDS: IPRATROPIUM BR 0.02% INH SOLN 0.5 MG/2.5 ML VIAL INHALATION ×2 (03:29→14:23)
[2019-09-07] MEDS: LEVALBUTEROL NEB 1.25 MG/3 ML 0.63 MG INHALATION ×2 (03:29→14:23)
[2019-09-07 06:05] LABS: Hematocrit 32.1 % (42.0-52.0); Hemoglobin 9.9 g/dL (14.0-18.0); Immature Platelet Fraction Pct 6.1 % (0.9-11.2); Mean Corpuscular HGB Conc 30.8 g/dl (32-36); Mean Corpuscular Hemoglobin 29.3 pg (26-34); Mean Platelet Volume 11.6 fl (7.4-10.4); Platelet Count Result 129 k/mm3 (150-375); Red Blood Count 3.38 M/mm3 (4.6-6.20); Red Cell Distribution Width 18.8 % (11.5-14.5); White Blood Count 6.4 K/mm3 (4.5-10.0)
[2019-09-07 06:40] LABS: Blood Urea Nitrogen 29 mg/dL (9-20); Calcium 8.3 mg/dL (8.4-10.2); Carbon Dioxide 32 mmol/L (22-30); Chloride 96 mmol/L (98-107); Estimated CRCL calculation 72 ml/min; Estimated Glomerular Filt Rate > 60; Glucose 85 mg/dL (75-110); Magnesium 1.9 mg/dL (1.6-2.3); Phosphorus 3.7 mg/dL (2.5-4.5); Potassium 3.8 mmol/L (3.4-5.0); Sodium 138 mmol/L (137-145)
[2019-09-07] MEDS: OSELTAMIVIR PHOSPHATE 75 MG CAP PO ×2 (08:29→22:34)
[2019-09-07] MEDS: FOLIC ACID 1 MG TABLET PO (08:29)
[2019-09-07] MEDS: LOSARTAN POTASSIUM 100 MG TABLET PO (08:29)
[2019-09-07] MEDS: GABAPENTIN 300 MG CAPSULE 600 MG PO (08:29)
[2019-09-07] MEDS: FAMOTIDINE 20 MG/2 ML VIAL IV PUSH ×2 (08:29→22:33)
[2019-09-07] MEDS: ASPIRIN 81 MG CHEWABLE TABLET PO (08:29)
[2019-09-07] MEDS: carvediloL 3.125 MG TABLET PO ×2 (08:30→22:35)
[2019-09-07] MEDS: CYANOCOBALAMIN 1,000 MCG TABLET 1000 MCG PO (08:30)
--- NOTE | 2019-09-07 16:19 | PM.IMPN ---
Progress Note: A&P Assessment and Plan (1) Pneumonia: Qualifiers: Laterality: unspecified laterality Lung location: unspecified part of lung Pneumonia type: due to unspecified organism Qualified Code(s): J18.9 - Pneumonia, unspecified organism Code(s): J18.9 - Pneumonia, unspecified organism Status: Acute Assessment and Plan: Influenza B positive with mild airspace opacities likely pneumonia. Continue abx coverage with azithromycin, rocephin, and vancomycin. Continue bronchodilator therapy with duo nebs, added pulmozyme and mucinex, PEP therapy today. Continue IV solu-medrol. Continue Tamiflu. Add another one time dose of IV Lasix today. Continue supplemental O2 and wean as tolerated to keep O2 saturations > 92%. Blood cultures pending with no growth to date. Ordered urine antigens. Sputum culture if he can produce one. (2) Influenza B: Code(s): J10.1 - Influenza due to other identified influenza virus with other respiratory manifestations Status: Acute Assessment and Plan: Continue Tamiflu. See above. (3) Acute respiratory failure: Qualifiers: Respiratory failure complication: hypoxia Qualified Code(s): J96.01 - Acute respiratory failure with hypoxia Code(s): J96.00 - Acute respiratory failure, unspecified whether with hypoxia or hypercapnia Status: Acute Assessment and Plan: Secondary to above. See plan above. (4) Altered mental status: Qualifiers: Altered mental status type: delirium Qualified Code(s): R41.0 - Disorientation, unspecified Code(s): R41.82 - Altered mental status, unspecified Status: Acute Assessment and Plan: Could be hospital delirium vs. early signs of dementia contributing, especially since he was better this morning and now getting more confused again this afternoon. Was given Zyprexa last night he became agitated. Will add on Seroquel for this evening. CT brain unable to be obtained yesterday since he was being combative, was held off this morning because he was feeling better but since he is getting more confused again this afternoon, will obtain CT brain in AM when hopefully he will be more cooperative. (5) Ulcerative colitis: Qualifiers: Digestive disease complication type: without complication Ulcerative colitis location: unspecified ulcerative colitis location Qualified Code(s): K51.90 - Ulcerative colitis, unspecified, without complications Code(s): K51.90 - Ulcerative colitis, unspecified, without complications Status: Acute Assessment and Plan: Patient was currently undergoing a prednisone taper for UC flare-up about a month ago. Was having diarrhea and abdominal pain, no mention of these today. CT abdomen/pelvis with no acute intra-abdominal abnormalities. Stool cultures are pending. (6) Hypertension: Qualifiers: Hypertension type: essential hypertension Qualified Code(s): I10 - Essential (primary) hypertension Code(s): I10 - Essential (primary) hypertension Status: Acute Assessment and Plan: Elevated, more stable this afternoon. Continue home Coreg and losartan. (7) Cirrhosis: Qualifiers: Ascites presence: without ascites Hepatic cirrhosis type: unspecified hepatic cirrhosis Qualified Code(s): K74.60 - Unspecified cirrhosis of liver Code(s): K74.60 - Unspecified cirrhosis of liver Status: Acute Assessment and Plan: Stable. No significant ascites noted on imaging. Liver enzymes are within normal limits. INR in AM. (8) Peripheral neuropathy: Qualifiers: Peripheral neuropathy type: polyneuropathy, unspecified Qualified Code(s): G62.9 - Polyneuropathy,
[2019-09-07] MEDS: QUEtiapine FUMARATE 12.5 MG TABLET PO (17:44)
[2019-09-07] MEDS: FUROSEMIDE INJ 40 MG/4 ML VIAL 20 MG IV PUSH (17:46)
[2019-09-08] VITALS (15 sets, daily range): BP systolic 140–180; BP diastolic 80–110; PULSE 70–85; RESP 20–322; TEMP 36.5; O2SAT 93–99
[2019-09-08] MEDS: LEVALBUTEROL NEB 1.25 MG/3 ML 0.63 MG INHALATION ×4 (00:22→21:49)
[2019-09-08] MEDS: IPRATROPIUM BR 0.02% INH SOLN 0.5 MG/2.5 ML VIAL INHALATION ×4 (00:22→21:49)
--- NOTE | 2019-09-08 00:29 | PCRCNOTE ---
ERIC Arias, req pt not be awakened due to very combative behavior
[2019-09-08] MEDS: LORAZEPAM INJ 2 MG/ML VIAL 1 MG IV PUSH (02:27)
--- NOTE | 2019-09-08 02:45 | PC.NURSE ---
0230 PT BECOMING -COMBATIVE, WILL NOT STAY IN BED, YELLING. ASIM CAGLE NP NOTIFIED ORDERS RECEIVED
[2019-09-08] MEDS: methylPREDNISolone SOD SUCC 125 MG VIAL 60 MG IV PUSH ×2 (03:27→09:54)
[2019-09-08 08:16] LABS: Prothrombin Time 12.8 Seconds (11.1-14.7)
[2019-09-08 08:19] LABS: Blood Urea Nitrogen 26 mg/dL (9-20); Carbon Dioxide 37 mmol/L (22-30); Chloride 97 mmol/L (98-107); Estimated CRCL calculation 59 ml/min; Estimated Glomerular Filt Rate > 60; Glucose 145 mg/dL (75-110); Lipase 30 U/L (23-300); Phosphorus 2.3 mg/dL (2.5-4.5); Potassium 3.2 mmol/L (3.4-5.0); Sodium 139 mmol/L (137-145)
[2019-09-08] MEDS: DORNASE ALFA INH SOLN 1 MG/ML 2.5 ML AMP 2.5 MG INHALATION ×2 (09:08→21:50)
[2019-09-08] MEDS: POLYSACCHARIDE IRON COMPLEX 150 MG CAPSULE 450 MG PO (09:52)
[2019-09-08] MEDS: ASPIRIN 81 MG CHEWABLE TABLET PO (09:52)
[2019-09-08] MEDS: GABAPENTIN 300 MG CAPSULE 600 MG PO (09:53)
[2019-09-08] MEDS: CYANOCOBALAMIN 1,000 MCG TABLET 1000 MCG PO (09:53)
[2019-09-08] MEDS: carvediloL 3.125 MG TABLET PO ×2 (09:53→21:07)
[2019-09-08] MEDS: FAMOTIDINE 20 MG/2 ML VIAL IV PUSH ×2 (09:53→21:08)
[2019-09-08] MEDS: FOLIC ACID 1 MG TABLET PO (09:53)
[2019-09-08] MEDS: OSELTAMIVIR PHOSPHATE 75 MG CAP PO (09:54)
[2019-09-08] MEDS: LOSARTAN POTASSIUM 100 MG TABLET PO (09:54)
--- NOTE | 2019-09-08 10:20 | PM.IMPN ---
Progress Note: A&P Assessment and Plan (1) Pneumonia: Qualifiers: Laterality: unspecified laterality Lung location: unspecified part of lung Pneumonia type: due to unspecified organism Qualified Code(s): J18.9 - Pneumonia, unspecified organism Code(s): J18.9 - Pneumonia, unspecified organism Status: Acute Assessment and Plan: Influenza B positive with mild airspace opacities likely pneumonia. Continue abx coverage. Continue bronchodilator therapy with duo nebs, pulmozyme and mucinex, PEP therapy. Continue IV solu-medrol. Continue Tamiflu. Add another one time dose of IV Lasix today. Stop Rocephin, stop vancomycin, start ceftaroline; continue azithromycin. Continue supplemental O2 and wean as tolerated to keep O2 saturations > 92%. Blood cultures pending with no growth to date. Ordered urine antigens. Sputum culture if he can produce one. Edit: Stopped tamiflu this afternoon in case it is contributing to his altered mental status. Blood gas this afternoon repeated due to lethargy; without much change compared to his ABG on arrival. (2) Influenza B: Code(s): J10.1 - Influenza due to other identified influenza virus with other respiratory manifestations Status: Acute Assessment and Plan: See above. (3) Acute respiratory failure: Qualifiers: Respiratory failure complication: hypoxia Qualified Code(s): J96.01 - Acute respiratory failure with hypoxia Code(s): J96.00 - Acute respiratory failure, unspecified whether with hypoxia or hypercapnia Status: Acute Assessment and Plan: Secondary to above. See plan above. (4) Altered mental status: Qualifiers: Altered mental status type: delirium Qualified Code(s): R41.0 - Disorientation, unspecified Code(s): R41.82 - Altered mental status, unspecified Status: Acute Assessment and Plan: Could be hospital delirium vs. early signs of dementia contributing, especially since he was better this morning and now getting more confused again this afternoon. Was given Zyprexa the other night when he became agitated. Lower dose seroquel was added last night but he is lethargic today. Nursing reports he was screaming last night and confused. CT brain shows no acute findings. Stopped tamiflu this afternoon in case it is contributing? Repeat ABG this afternoon without much change. Neurology consulted - appreciate recommendations. (5) Ulcerative colitis: Qualifiers: Digestive disease complication type: without complication Ulcerative colitis location: unspecified ulcerative colitis location Qualified Code(s): K51.90 - Ulcerative colitis, unspecified, without complications Code(s): K51.90 - Ulcerative colitis, unspecified, without complications Status: Acute Assessment and Plan: Patient was currently undergoing a prednisone taper for UC flare-up about a month ago. Was having diarrhea on arrival, no diarrhea the last [address] abdomen/pelvis with no acute intra-abdominal abnormalities. C diff is positive. Started fidaxomicin. (6) Hypertension: Qualifiers: Hypertension type: essential hypertension Qualified Code(s): I10 - Essential (primary) hypertension Code(s): I10 - Essential (primary) hypertension Status: Acute Assessment and Plan: Continue home Coreg and losartan. Continue monitoring BP. Hydralazine PRN. (7) Cirrhosis: Qualifiers: Ascites presence: without ascites Hepatic cirrhosis type: unspecified hepatic cirrhosis Qualified Code(s): K74.60 - Unspecified cirrhosis of liver Code(s): K74.60 - Unspecified cirrhosis of liver Status: Acute Assessment and Plan: Stable. No significant ascites noted on im
[2019-09-08] MEDS: POTASSIUM CHLORIDE 20 MEQ TABLET 40 MEQ PO (13:12)
--- NOTE | 2019-09-08 15:30 | PCOTNOTE ---
Addendum entered by AMANUEL Milton 09/09/19 14:35: Note completed in error. Original Note: The patient treatment was not able to be completed on 09/08/19. Will plan to continue treatment per plan of care.
--- NOTE | 2019-09-08 15:38 | PC.NURSE ---
Patient very lethargic. Arouses easily to name but cannot stay awake. Audible congestion noted at bedside. Labored breathing noted as well. VSS other than BP which is elevated at 180/100. O2 sat 95-100% on 2 liters per nasal cannula. Called Pilar FLYNN and notified her of assessment and concerns. She states she will come to assess the patient. She also states she will order prn Hydralazine for elevated BP. at bedside and aware of plan.
[2019-09-08 16:43] LABS: Alveolar/Arterial O2 Gradient 91.3 mmHg; Base Excess ABG 6.7 mEq/l (+/-2.0); Device NASAL CANNULA; Fractional Inspired Oxygen 28 %; HCO3 ABG 31.8 mEq/l (22.0-26.0); Oxygen Saturation ABG 87.6 % (95.0-100.0); Oxyhemoglobin 84.8 % THb (90.0-100.0); PCO2 ABG 47.8 mmHg (35.0-45.0); PO2 ABG 51.9 mmHg (80.0-100.0); PO2 FiO2 Ratio Arterial Blood 1.85 %; Site Drawn RIGHT BRACHIAL; Total Hemoglobin 10.9 g/dL (12.0-18.0); pH ABG 7.441 (7.350-7.450)
[2019-09-08] MEDS: hydrALAZINE HCL 20 MG/ML VIAL 10 MG IV PUSH (17:01)
[2019-09-08] MEDS: methylPREDNISolone SOD SUCC 40 MG VIAL IV PUSH (17:41)
[2019-09-08 18:44] LABS: Vancomycin Trough 11.1 ug/mL (10.0-20.0)
[2019-09-08] MEDS: FIDAXOMICIN 200 MG TABLET PO (21:08)
[2019-09-09] VITALS (16 sets, daily range): BP systolic 149–180; BP diastolic 86–91; PULSE 77–88; RESP 18–24; TEMP 36.3–36.7; O2SAT 95–97
[2019-09-09] MEDS: methylPREDNISolone SOD SUCC 40 MG VIAL IV PUSH ×3 (02:10→21:21)
[2019-09-09] MEDS: IPRATROPIUM BR 0.02% INH SOLN 0.5 MG/2.5 ML VIAL INHALATION ×4 (03:23→23:00)
[2019-09-09] MEDS: LEVALBUTEROL NEB 1.25 MG/3 ML 0.63 MG INHALATION ×4 (03:23→23:00)
[2019-09-09] MEDS: hydrALAZINE HCL 20 MG/ML VIAL 10 MG IV PUSH (04:58)
[2019-09-09 05:54] LABS: Hematocrit 32.3 % (42.0-52.0); Immature Platelet Fraction Pct 6.3 % (0.9-11.2); Mean Corpuscular Hemoglobin 28.7 pg (26-34); Mean Corpuscular Volume 92.6 fl (80-100); Mean Platelet Volume 11.4 fl (7.4-10.4); Platelet Count Result 140 k/mm3 (150-375); Red Blood Count 3.49 M/mm3 (4.6-6.20); Red Cell Distribution Width 18.6 % (11.5-14.5); White Blood Count 7.8 K/mm3 (4.5-10.0)
[2019-09-09 06:14] LABS: Blood Urea Nitrogen 28 mg/dL (9-20); Calcium 8.2 mg/dL (8.4-10.2); Carbon Dioxide 35 mmol/L (22-30); Chloride 100 mmol/L (98-107); Estimated CRCL calculation 65 ml/min; Estimated Glomerular Filt Rate > 60; Glucose 132 mg/dL (75-110); Magnesium 2.1 mg/dL (1.6-2.3); Phosphorus 2.5 mg/dL (2.5-4.5); Potassium 3.5 mmol/L (3.4-5.0); Sodium 139 mmol/L (137-145)
[2019-09-09] MEDS: DORNASE ALFA INH SOLN 1 MG/ML 2.5 ML AMP 2.5 MG INHALATION ×2 (08:37→23:00)
[2019-09-09] MEDS: carvediloL 3.125 MG TABLET PO ×2 (09:04→21:20)
[2019-09-09] MEDS: GABAPENTIN 300 MG CAPSULE 600 MG PO (09:04)
[2019-09-09] MEDS: FOLIC ACID 1 MG TABLET PO (09:04)
[2019-09-09] MEDS: CYANOCOBALAMIN 1,000 MCG TABLET 1000 MCG PO (09:04)
[2019-09-09] MEDS: FIDAXOMICIN 200 MG TABLET PO ×2 (09:04→21:21)
[2019-09-09] MEDS: LOSARTAN POTASSIUM 100 MG TABLET PO (09:04)
[2019-09-09] MEDS: ASPIRIN 81 MG CHEWABLE TABLET PO (09:04)
[2019-09-09] MEDS: FAMOTIDINE 20 MG/2 ML VIAL IV PUSH ×2 (09:04→21:21)
--- NOTE | 2019-09-09 13:24 | WPDCDIQUERY2 ---
CDI Query Clarification Request - C diff is positive. Started fidaxomicin has been documented. Please clarify if there is a corresponding diagnosis for above.
--- NOTE | 2019-09-09 14:53 | PM.IMPN ---
Progress Note: A&P Assessment and Plan (1) Pneumonia: Qualifiers: Laterality: unspecified laterality Lung location: unspecified part of lung Pneumonia type: due to unspecified organism Qualified Code(s): J18.9 - Pneumonia, unspecified organism Code(s): J18.9 - Pneumonia, unspecified organism Status: Acute Assessment and Plan: Influenza B positive with mild airspace opacities likely pneumonia. Continue abx coverage. Continue bronchodilator therapy with duo nebs, pulmozyme and mucinex, PEP therapy. Taper Solu-medrol. Stopped Tamiflu due to confusion. Continue ceftaroline and azithromycin. Continue supplemental O2 and wean as tolerated to keep O2 saturations > 92%. Improving with decreased O2 requirement. Blood cultures pending with no growth to date. Ordered urine antigens. Sputum culture if he can produce one. (2) Influenza B: Code(s): J10.1 - Influenza due to other identified influenza virus with other respiratory manifestations Status: Acute Assessment and Plan: See above. (3) Acute respiratory failure: Qualifiers: Respiratory failure complication: hypoxia Qualified Code(s): J96.01 - Acute respiratory failure with hypoxia Code(s): J96.00 - Acute respiratory failure, unspecified whether with hypoxia or hypercapnia Status: Acute Assessment and Plan: Secondary to above. See plan above. (4) Altered mental status: Qualifiers: Altered mental status type: delirium Qualified Code(s): R41.0 - Disorientation, unspecified Code(s): R41.82 - Altered mental status, unspecified Status: Acute Assessment and Plan: Much improved today after stopping Tamiflu. Previously he had been very confused and lethargic, trying to get out of bed and being combative with staff at times. Was treated with zyprexa and seroquel in days prior but no additional meds last night or today. Suspect metabolic encephalopathy as a result of tamiflu vs. hospital delirium. Neurology was consulted - appreciate input. (5) Ulcerative colitis: Qualifiers: Digestive disease complication type: without complication Ulcerative colitis location: unspecified ulcerative colitis location Qualified Code(s): K51.90 - Ulcerative colitis, unspecified, without complications Code(s): K51.90 - Ulcerative colitis, unspecified, without complications Status: Acute Assessment and Plan: Patient was currently undergoing a prednisone taper for UC flare-up about a month ago. His does of mesalamine was recently increased which patient and report has caused him to sleep all day for weeks. Held mesalamine here for now. CT abdomen/pelvis with no acute intra-abdominal abnormalities. (6) Stool culture positive for Clostridium difficile: Code(s): R19.5 - Other fecal abnormalities Status: Acute Assessment and Plan: Not isolated for such since he has not had diarrhea for the last 4 days but will treat based on his immunocompromised status from steroids. Continue Fidaxamicin (day 2 of 10). (7) Hypertension: Qualifiers: Hypertension type: essential hypertension Qualified Code(s): I10 - Essential (primary) hypertension Code(s): I10 - Essential (primary) hypertension Status: Acute Assessment and Plan: Continue home Coreg and losartan. Continue monitoring BP. Hydralazine PRN. BP elevated this morning. (8) Cirrhosis: Qualifiers: Ascites presence: without ascites Hepatic cirrhosis type: unspecified hepatic cirrhosis Qualified Code(s): K74.60 - Unspecified cirrhosis of liver Code(s): K74.60 - Unspecified cirrhosis of liver Status: Acute Assessment and Plan: Sta
--- NOTE | 2019-09-09 17:56 | PM.CNPUL ---
Assessment and Plan Assessment and plan (1) Acute respiratory failure: Qualifiers: Respiratory failure complication: hypoxia Qualified Code(s): J96.01 - Acute respiratory failure with hypoxia Code(s): J96.00 - Acute respiratory failure, unspecified whether with hypoxia or hypercapnia Status: Acute Assessment and Plan: Due to influenza B and secondary pneumonia; gradual improvement. Spoke with the patient and his at the bedside, this can take a while to resolve, now on the right meds. He has clear draiange in the psterior pharynx, and using the Cornet valve may help with getting this cleared from the airway. (2) Pneumonia: Qualifiers: Laterality: unspecified laterality Lung location: unspecified part of lung Pneumonia type: due to unspecified organism Qualified Code(s): J18.9 - Pneumonia, unspecified organism Code(s): J18.9 - Pneumonia, unspecified organism Status: Acute Assessment and Plan: No pathogen identified (3) Influenza B: Code(s): J10.1 - Influenza due to other identified influenza virus with other respiratory manifestations Status: Acute Assessment and Plan: He did have the vaccine this season. Had Influenza follwed by probably pneumonia, slow recovery, improved O2 need, increased activity. (4) Hypoxia: Code(s): R09.02 - Hypoxemia Status: Acute Assessment and Plan: O2 need is lower, 1 L/minute. History of Present Illness History of Present Illness Consult date: 09/10/19 Requesting physician: Pilar North PA-C Reason for consult: pneumonia Chief complaint: Influenza B/Pnuemonia/Hypoxia Narrative: NEW CONSULT: Alex Wakefield is an 78 yo man admitted with influenza B and secondary pneumonia. His is at the bedside, assists with the history. He had a flu vaccine this year. He has RA, is not on DMARD for treatment. He developed symptoms, cough, shortness of breath, sputum production; on Tamiflu he became confused and combative, better after stopping Tamiflu. He is on weaning flow of O2, now 1 L/min. He has clear sputum in the back of his throat, and a history of nasal drainage. He quit smoking 40 years ago. Had pneumonia 5 years ago, treated as out-patient. Review of Systems Review of Systems: All systems reviewed & are unremarkable except as noted in HPI and below PMFSH Past Medical History Medical History (Updated 09/10/19 @ 11:05 by Pilar North PA-C) Cataracts, bilateral Cirrhosis GERD (gastroesophageal reflux disease) H/O: HTN (hypertension) Hx of ulcerative colitis Hypertension OA (osteoarthritis) Peripheral neuropathy Ulcerative colitis Umbilical hernia Surgical History Surgical History (Updated 09/06/19 @ 07:16 by Urmila Cohen PA-C) History of umbilical hernia repair Hx of bilateral cataract extraction Status post right partial knee replacement Family History Family History (Updated 09/05/19 @ 16:00 by Lala Macedo RN) Other Unknown family medical history Social History Social History (Updated 09/06/19 @ 07:16 by Urmila Cohen PA-C) Social History: Patient lives in were known OA with his . He is a nonsmoker and quit drinking alcohol and smoking cigarettes 40 years ago. His surrogate decision maker would be his Glo. Smoking packs per day: 2 Smoking cigarettes per day: 40.0 Years smoked: 30 Smoking pack-years: 60.00 Smoking status: Former smoker Tobacco type: cigarettes Alcohol intake: never Substance use: never Substance use type: does not use Gender identity (if verbalized by the patient): Male Spiritual care concerns: No Agree to blood products: Yes Meds Home Medications and Allergies Home Medications Medication Instructions Recorded Confirmed Type acetaminophen [Tylenol Arthritis 650 mg PO Q8H PRN 09/05/19 09/05/19 History Pain] aspirin 81 mg PO DAILY 09/05/19 09/05/19 History azathiopri
[2019-09-10] VITALS (15 sets, daily range): BP systolic 140–200; BP diastolic 70–110; PULSE 70–93; RESP 16–20; TEMP 36.1–37; O2SAT 90–99
[2019-09-10] MEDS: LEVALBUTEROL NEB 1.25 MG/3 ML 0.63 MG INHALATION ×4 (03:42→19:51)
[2019-09-10] MEDS: IPRATROPIUM BR 0.02% INH SOLN 0.5 MG/2.5 ML VIAL INHALATION ×4 (03:42→19:51)
[2019-09-10 06:52] LABS: Blood Urea Nitrogen 38 mg/dL (9-20); Carbon Dioxide 33 mmol/L (22-30); Chloride 97 mmol/L (98-107); Estimated CRCL calculation 54 ml/min; Estimated Glomerular Filt Rate > 60; Glucose 143 mg/dL (75-110); Magnesium 2.1 mg/dL (1.6-2.3); Potassium 3.8 mmol/L (3.4-5.0); Sodium 137 mmol/L (137-145)
[2019-09-10] MEDS: ASPIRIN 81 MG CHEWABLE TABLET PO (09:40)
[2019-09-10] MEDS: CYANOCOBALAMIN 1,000 MCG TABLET 1000 MCG PO (09:41)
[2019-09-10] MEDS: POLYSACCHARIDE IRON COMPLEX 150 MG CAPSULE 450 MG PO (09:41)
[2019-09-10] MEDS: FAMOTIDINE 20 MG/2 ML VIAL IV PUSH ×2 (09:41→22:11)
[2019-09-10] MEDS: LOSARTAN POTASSIUM 100 MG TABLET PO (09:42)
[2019-09-10] MEDS: FOLIC ACID 1 MG TABLET PO (09:42)
[2019-09-10] MEDS: methylPREDNISolone SOD SUCC 40 MG VIAL IV PUSH ×2 (09:42→22:11)
[2019-09-10] MEDS: FIDAXOMICIN 200 MG TABLET PO ×2 (09:42→22:11)
[2019-09-10] MEDS: GABAPENTIN 300 MG CAPSULE 600 MG PO (09:42)
[2019-09-10] MEDS: carvediloL 3.125 MG TABLET PO (09:43)
[2019-09-10] MEDS: DORNASE ALFA INH SOLN 1 MG/ML 2.5 ML AMP 2.5 MG INHALATION ×2 (10:04→19:51)
--- NOTE | 2019-09-10 10:54 | PM.IMPN ---
Progress Note: A&P Assessment and Plan (1) Pneumonia: Qualifiers: Laterality: unspecified laterality Lung location: unspecified part of lung Pneumonia type: due to unspecified organism Qualified Code(s): J18.9 - Pneumonia, unspecified organism Code(s): J18.9 - Pneumonia, unspecified organism Status: Acute Assessment and Plan: Influenza B positive with mild airspace opacities likely pneumonia. Continue abx coverage. Continue bronchodilator therapy with duo nebs, pulmozyme and mucinex, PEP therapy. Taper Solu-medrol. Stopped Tamiflu due to confusion. Continue ceftaroline (day 6 cephalosporin; day 3 ceftaroline, was on Rocephin) and azithromycin (day 6). Continue supplemental O2 and wean as tolerated to keep O2 saturations > 90%. Improving with decreased O2 requirement. Blood cultures pending with no growth to date. Urine antigens pending. Sputum culture if he can produce one. (2) Influenza B: Code(s): J10.1 - Influenza due to other identified influenza virus with other respiratory manifestations Status: Acute Assessment and Plan: See above. (3) Acute respiratory failure: Qualifiers: Respiratory failure complication: hypoxia Qualified Code(s): J96.01 - Acute respiratory failure with hypoxia Code(s): J96.00 - Acute respiratory failure, unspecified whether with hypoxia or hypercapnia Status: Acute Assessment and Plan: Secondary to above. See plan above. (4) Altered mental status: Qualifiers: Altered mental status type: delirium Qualified Code(s): R41.0 - Disorientation, unspecified Code(s): R41.82 - Altered mental status, unspecified Status: Resolved Assessment and Plan: Much improved after stopping Tamiflu. Previously he had been very confused and lethargic, trying to get out of bed and being combative with staff at times. Was treated with zyprexa and seroquel in days prior but no additional meds last night or today. Suspect metabolic encephalopathy as a result of tamiflu vs. hospital delirium. Can cancel neurology consult. (5) Ulcerative colitis: Qualifiers: Digestive disease complication type: without complication Ulcerative colitis location: unspecified ulcerative colitis location Qualified Code(s): K51.90 - Ulcerative colitis, unspecified, without complications Code(s): K51.90 - Ulcerative colitis, unspecified, without complications Status: Chronic Assessment and Plan: Patient was currently undergoing a prednisone taper for UC flare-up about a month ago. His dose of mesalamine was recently increased which patient and report has caused him to sleep all day for weeks. Held mesalamine here for now. CT abdomen/pelvis with no acute intra-abdominal abnormalities. (6) Stool culture positive for Clostridium difficile: Code(s): R19.5 - Other fecal abnormalities Status: Acute Assessment and Plan: Not isolated for such since he has not had diarrhea for the last 5 days but will treat based on his immunocompromised status from steroids and respiratory infection. Continue Fidaxamicin (day 3 of 10). (7) Hypertension: Qualifiers: Hypertension type: essential hypertension Qualified Code(s): I10 - Essential (primary) hypertension Code(s): I10 - Essential (primary) hypertension Status: Chronic Assessment and Plan: Continue home Coreg and losartan. Hydralazine PRN. BP elevated this morning, increase Coreg and monitor BP. (8) Cirrhosis: Qualifiers: Ascites presence: without ascites Hepatic cirrhosis type: unspecified hepatic cirrhosis Qualified Code(s): K74.60 - Unspecified cirrhosis of liver Code(s): K74.60 -
[2019-09-10] MEDS: SODIUM CHLORIDE 0.9% IV 1,000 ML 80 ML IV CONT (16:38)
[2019-09-10] MEDS: hydrALAZINE HCL 20 MG/ML VIAL 10 MG IV PUSH (16:43)
--- NOTE | 2019-09-10 20:29 | PM.PNPUL ---
Progress Note: A&P Assessment and Plan (1) Acute respiratory failure: Qualifiers: Respiratory failure complication: hypoxia Qualified Code(s): J96.01 - Acute respiratory failure with hypoxia Code(s): J96.00 - Acute respiratory failure, unspecified whether with hypoxia or hypercapnia Status: Acute Assessment and Plan: Due to influenza B and secondary pneumonia; gradual improvement. Spoke with the patient and his at the bedside, this can take a while to resolve, now on the right meds. He has clear draiange in the psterior pharynx, and using the Cornet valve may help with getting this cleared from the airway. (2) Pneumonia: Qualifiers: Laterality: unspecified laterality Lung location: unspecified part of lung Pneumonia type: due to unspecified organism Qualified Code(s): J18.9 - Pneumonia, unspecified organism Code(s): J18.9 - Pneumonia, unspecified organism Status: Acute Assessment and Plan: No pathogen identified (3) Influenza B: Code(s): J10.1 - Influenza due to other identified influenza virus with other respiratory manifestations Status: Acute Assessment and Plan: He did have the vaccine this season. Had Influenza follwed by probably pneumonia, slow recovery, improved O2 need, increased activity. (4) Hypoxia: Code(s): R09.02 - Hypoxemia Status: Acute Assessment and Plan: O2 need is lower, 1 L/minute. Subjective Date/time seen: 09/10/19 20:29 This 78 yo man is seen in follow up for influenza B and pneumonia Review of Systems Review of Systems: All systems reviewed & are unremarkable except as noted in HPI and below Exam Narrative: Exam Narrative: Cannot move easily, needs to assist his legs by lifting with his hands to get the legs into the bed after sitting on the side of the side of the bed to eat dinner. Const: General: no acute distress Eyes: General: appearance normal, both eyes and all related structures Neck: Neck: no JVD Resp: Effort & Inspection: normal respiratory effort Auscultation: crackles, rhonchi and wheezes Other: Exam is abnormal; has good air entry; bilateral crackles in the bases L>R. scattered rhonchi. Faint expiratory wheeze at the end of expiration. Cardio: Rate: regular rate Rhythm: regular rhythm Heart sounds: no murmurs GI: Auscultation: normal bowel sounds Other: umbilical hernia Skin: Other: scattered ecchymoses on the lower legs; no edema, skin is warm, dry; no clubbing. Objective Data Vital Signs Vital Signs: Vital Signs - 24 hr 09/09/19 21:20 09/09/19 23:00 09/09/19 23:14 Temperature Pulse Rate 77 80 83 Respiratory Rate 20 20 Blood Pressure Pulse Oximetry 09/09/19 23:15 09/10/19 03:43 09/10/19 03:53 Temperature Pulse Rate 80 82 81 Respiratory Rate 20 20 20 Blood Pressure Pulse Oximetry 95 09/10/19 06:12 09/10/19 09:43 09/10/19 10:04 Temperature 36.1 C L Pulse Rate 70 88 80 Respiratory Rate 16 16 Blood Pressure 150/70 H Pulse Oximetry 95 09/10/19 10:15 09/10/19 14:00 09/10/19 14:33 Temperature 37.0 C Pulse Rate 81 71 79 Respiratory Rate 20 18 16 Blood Pressure 185/89 H Pulse Oximetry 94 09/10/19 14:41 09/10/19 16:43 09/10/19 18:26 Temperature Pulse Rate 80 Respiratory Rate 20 Blood Pressure 200/110 H 140/82 Pulse Oximetry Intake/Output Intake/Output: Intake & Output 09/07/19 09/08/19 09/09/19 09/10/19 23:59 23:59 23:59 23:59 Intake Total 1794 1999 2225 2220 Output Total 123 968 8135 1150 Balance 1194 0541 061 8902 Meds/Results Medications: Active Medications Generic Name Dose Route Start Last Admin Trade Name Desiree PRN Reason Stop Dose Admin Acetaminophen 650 mg 09/05/19 14:21 Tylenol Tablet PO Q4H PRN Mild Pain (1-3) or Fever Aspirin 81 mg 09/06/19 08:00 09/10/19 09:40 Aspirin Chewable PO 81 mg DAILY@0800 PENDING SALE TO [facility] Administration Ca
[2019-09-10] MEDS: carvediloL 6.25 MG TABLET PO (22:11)
[2019-09-11] VITALS (13 sets, daily range): BP systolic 128–196; BP diastolic 75–90; PULSE 62–90; RESP 16–22; TEMP 36.3–36.6; O2SAT 94–100
[2019-09-11] MEDS: LEVALBUTEROL NEB 1.25 MG/3 ML 0.63 MG INHALATION ×4 (03:10→22:43)
[2019-09-11] MEDS: IPRATROPIUM BR 0.02% INH SOLN 0.5 MG/2.5 ML VIAL INHALATION ×4 (03:10→22:43)
[2019-09-11] MEDS: SODIUM CHLORIDE 0.9% IV 1,000 ML 80 ML IV CONT ×2 (05:38→22:17)
[2019-09-11 06:47] LABS: Alanine Aminotransferase 39 U/L (4-50); Albumin Level 2.6 g/dL (3.5-5.1); Alkaline Phosphatase 40 U/L (38-126); Aspartate Amino Transferase 39 U/L (17-59); Bilirubin,Total 0.7 mg/dL (0.2-1.3); Blood Urea Nitrogen 31 mg/dL (9-20); Calcium 7.4 mg/dL (8.4-10.2); Carbon Dioxide 32 mmol/L (22-30); Chloride 99 mmol/L (98-107); Estimated CRCL calculation 65 ml/min; Estimated Glomerular Filt Rate > 60; Glucose 140 mg/dL (75-110); Potassium 3.6 mmol/L (3.4-5.0); Sodium 136 mmol/L (137-145)
[2019-09-11] MEDS: DORNASE ALFA INH SOLN 1 MG/ML 2.5 ML AMP 2.5 MG INHALATION ×2 (07:28→22:43)
[2019-09-11] MEDS: FAMOTIDINE 20 MG/2 ML VIAL IV PUSH ×2 (09:23→20:36)
[2019-09-11] MEDS: FOLIC ACID 1 MG TABLET PO (09:23)
[2019-09-11] MEDS: methylPREDNISolone SOD SUCC 40 MG VIAL IV PUSH ×2 (09:23→20:36)
[2019-09-11] MEDS: GABAPENTIN 300 MG CAPSULE 600 MG PO (09:23)
[2019-09-11] MEDS: FIDAXOMICIN 200 MG TABLET PO ×2 (09:24→20:37)
[2019-09-11] MEDS: ASPIRIN 81 MG CHEWABLE TABLET PO (09:24)
[2019-09-11] MEDS: CYANOCOBALAMIN 1,000 MCG TABLET 1000 MCG PO (09:24)
[2019-09-11] MEDS: LOSARTAN POTASSIUM 100 MG TABLET PO (09:24)
[2019-09-11] MEDS: carvediloL 12.5 MG TABLET PO ×2 (09:33→20:37)
--- NOTE | 2019-09-11 13:42 | PM.IMPN ---
Progress Note: A&P Assessment and Plan (1) Pneumonia: Qualifiers: Laterality: unspecified laterality Lung location: unspecified part of lung Pneumonia type: due to unspecified organism Qualified Code(s): J18.9 - Pneumonia, unspecified organism Code(s): J18.9 - Pneumonia, unspecified organism Status: Acute Assessment and Plan: Influenza B positive with mild airspace opacities likely pneumonia. Continue abx coverage. Continue bronchodilator therapy with duo nebs, pulmozyme and mucinex, PEP therapy. Taper Solu-medrol and transition to oral prednisone tomorrow. Stopped Tamiflu due to confusion. Continue ceftaroline (day 7 cephalosporin; day 4 ceftaroline, was on Rocephin prior) and azithromycin (day 7). Continue supplemental O2 and wean as tolerated to keep O2 saturations > 90%. Improving with decreased O2 requirement. Blood cultures pending with no growth to date. Urine antigens pending. Sputum culture not able to be tested, inadequate sample. (2) Influenza B: Code(s): J10.1 - Influenza due to other identified influenza virus with other respiratory manifestations Status: Acute Assessment and Plan: See above. (3) Acute respiratory failure: Qualifiers: Respiratory failure complication: hypoxia Qualified Code(s): J96.01 - Acute respiratory failure with hypoxia Code(s): J96.00 - Acute respiratory failure, unspecified whether with hypoxia or hypercapnia Status: Acute Assessment and Plan: Secondary to above. See plan above. (4) Altered mental status: Qualifiers: Altered mental status type: delirium Qualified Code(s): R41.0 - Disorientation, unspecified Code(s): R41.82 - Altered mental status, unspecified Status: Resolved Assessment and Plan: Much improved after stopping Tamiflu. Previously he had been very confused and lethargic, trying to get out of bed and being combative with staff at times. Was treated with zyprexa and seroquel in days prior but no additional meds the last few nights. Suspect metabolic encephalopathy as a result of tamiflu vs. hospital delirium. Canceled neurology consult. (5) Ulcerative colitis: Qualifiers: Digestive disease complication type: without complication Ulcerative colitis location: unspecified ulcerative colitis location Qualified Code(s): K51.90 - Ulcerative colitis, unspecified, without complications Code(s): K51.90 - Ulcerative colitis, unspecified, without complications Status: Chronic Assessment and Plan: Patient was currently undergoing a prednisone taper for UC flare-up about a month ago. His dose of mesalamine was recently increased which patient and report has caused him to sleep all day for weeks. Held mesalamine here for now. CT abdomen/pelvis with no acute intra-abdominal abnormalities. (6) Stool culture positive for Clostridium difficile: Code(s): R19.5 - Other fecal abnormalities Status: Acute Assessment and Plan: Not isolated for such since he has not had diarrhea for the last several days but will treat based on his immunocompromised status from steroids and respiratory infection. Continue Fidaxomicin (day 4 of 10). (7) Hypertension: Qualifiers: Hypertension type: essential hypertension Qualified Code(s): I10 - Essential (primary) hypertension Code(s): I10 - Essential (primary) hypertension Status: Chronic Assessment and Plan: Continue home Coreg and losartan. Hydralazine PRN. BP elevated this morning, increase Coreg and monitor BP. (8) Cirrhosis: Qualifiers: Ascites presence: without ascites Hepatic cirrhosis type: unspecified hepatic cirrhosis Qualified C
--- NOTE | 2019-09-11 18:49 | PM.PNPUL ---
Progress Note: A&P Assessment and Plan (1) Acute respiratory failure: Qualifiers: Respiratory failure complication: hypoxia Qualified Code(s): J96.01 - Acute respiratory failure with hypoxia Code(s): J96.00 - Acute respiratory failure, unspecified whether with hypoxia or hypercapnia Status: Acute Assessment and Plan: Due to influenza B and secondary pneumonia; gradual improvement. Spoke with the patient and his at the bedside. He is better overall, using 1 L/min. Brain function is better. Initially had clear drainage in the posterior pharynx, still needs to use the Cornet valve to help with getting this cleared from the airway. Increase activity, wean O2, now at 1 L/min. He has an elevated right diaphragm. so when there is additional pulmonary reserve needed, he does not have the ability to ventilate with the right diaphragm. Cannot expand the alveoli in the right base due to elevated diaphragm. Explained to his that this is not an acute process, that there is no surgery indicated, and this is something he might have had for a while. More exercise, wean O2. Can be on RA in the day, 1 L/min with sleep. BP control. (2) Pneumonia: Qualifiers: Laterality: unspecified laterality Lung location: unspecified part of lung Pneumonia type: due to unspecified organism Qualified Code(s): J18.9 - Pneumonia, unspecified organism Code(s): J18.9 - Pneumonia, unspecified organism Status: Acute Assessment and Plan: No pathogen identified (3) Influenza B: Code(s): J10.1 - Influenza due to other identified influenza virus with other respiratory manifestations Status: Acute Assessment and Plan: He did have the vaccine this season. Had Influenza follwed by probably pneumonia, slow recovery, improved O2 need, increased activity. (4) Hypoxia: Code(s): R09.02 - Hypoxemia Status: Acute Assessment and Plan: O2 need is lower, 1 L/minute. Subjective Date/time seen: 09/11/19 18:49 is sitting at the bedside, eating dinner. His speech is clear, and his mentation is better. He is tired today, does not feel as good today as he did 2 days ago. He is not expectorating anything. His activity is limited by hip pain. BP high, 159-196 systolic. 70-94 diastolic Review of Systems Review of Systems: All systems reviewed & are unremarkable except as noted in HPI and below Constitutional: Constitutional: Reports fatigue (tired today, was not active; is using a walker. Hip pain. Good appetite.) and Reports other (no sputum. not short of breath, but not exercising much. ) Exam Narrative: Exam Narrative: He is more mobile, not as stiff today. Has been using a walker to move about. Const: General: no acute distress Eyes: General: appearance normal, both eyes and all related structures Neck: Neck: no JVD Resp: Effort & Inspection: normal respiratory effort Auscultation: crackles, rhonchi and wheezes Other: Exam is abnormal; has good air entry; bilateral crackles in the bases L>R. scattered rhonchi. No wheeze today. Cardio: Rate: regular rate Rhythm: regular rhythm Heart sounds: no murmurs GI: Auscultation: normal bowel sounds Other: umbilical hernia Skin: Other: scattered ecchymoses on the lower legs; no edema, skin is warm, dry; no clubbing. Objective Data Vital Signs Vital Signs: Vital Signs - 24 hr 09/10/19 19:52 09/10/19 20:22 09/10/19 22:00 Temperature 36.6 C Pulse Rate 89 93 80 Respiratory Rate 20 20 20 Blood Pressure 159/94 H Pulse Oximetry 90 99 09/10/19 22:11 09/11/19 03:11 09/11/19 03:26 Temperature Pulse Rate 80 74 72 Respiratory Rate 18 18 Blood Pressure Pulse Oximetry 09/11/19 06:00 09/11/19 07:30 09/11/19 07:43 Temperature 36.6 C Pulse Rate 86 90 85 Respiratory Rate 22 H 18 18 Blood Pressure 196/90 H Pulse Oximetry 96 95 09/11/19 08:00 09/11/19 14:00 09/11/19 16:04 Temperat
[2019-09-11 22:58] LABS: Pneumococcal Antigen Urine Not Detected (Not Detected)
[2019-09-12] VITALS (14 sets, daily range): BP systolic 152–182; BP diastolic 91–97; PULSE 66–88; RESP 16–22; TEMP 36.2–36.5; O2SAT 87–99
[2019-09-12] MEDS: hydrALAZINE HCL 20 MG/ML VIAL 10 MG IV PUSH (00:24)
[2019-09-12] MEDS: LEVALBUTEROL NEB 1.25 MG/3 ML 0.63 MG INHALATION ×4 (04:55→20:58)
[2019-09-12] MEDS: IPRATROPIUM BR 0.02% INH SOLN 0.5 MG/2.5 ML VIAL INHALATION ×4 (04:55→20:58)
[2019-09-12 06:22] LABS: Hematocrit 30.6 % (42.0-52.0); Hemoglobin 9.6 g/dL (14.0-18.0); Mean Corpuscular HGB Conc 31.4 g/dl (32-36); Mean Corpuscular Hemoglobin 29.4 pg (26-34); Mean Corpuscular Volume 93.6 fl (80-100); Mean Platelet Volume 11.4 fl (7.4-10.4); Platelet Count Result 156 k/mm3 (150-375); Red Blood Count 3.27 M/mm3 (4.6-6.20); Red Cell Distribution Width 17.8 % (11.5-14.5); White Blood Count 7.2 K/mm3 (4.5-10.0)
[2019-09-12 06:34] LABS: Blood Urea Nitrogen 28 mg/dL (9-20); Calcium 7.2 mg/dL (8.4-10.2); Carbon Dioxide 33 mmol/L (22-30); Chloride 102 mmol/L (98-107); Estimated CRCL calculation 59 ml/min; Estimated Glomerular Filt Rate > 60; Glucose 120 mg/dL (75-110); Potassium 3.4 mmol/L (3.4-5.0); Sodium 138 mmol/L (137-145)
[2019-09-12] MEDS: predniSONE 20 MG TABLET 60 MG PO (09:15)
[2019-09-12] MEDS: FOLIC ACID 1 MG TABLET PO (09:15)
[2019-09-12] MEDS: CYANOCOBALAMIN 1,000 MCG TABLET 1000 MCG PO (09:15)
[2019-09-12] MEDS: carvediloL 12.5 MG TABLET PO ×2 (09:15→21:37)
[2019-09-12] MEDS: GABAPENTIN 300 MG CAPSULE 600 MG PO (09:16)
[2019-09-12] MEDS: ASPIRIN 81 MG CHEWABLE TABLET PO (09:16)
[2019-09-12] MEDS: LOSARTAN POTASSIUM 100 MG TABLET PO (09:16)
[2019-09-12] MEDS: FIDAXOMICIN 200 MG TABLET PO ×2 (09:16→21:37)
[2019-09-12] MEDS: POLYSACCHARIDE IRON COMPLEX 150 MG CAPSULE 450 MG PO (09:16)
[2019-09-12] MEDS: FAMOTIDINE 20 MG/2 ML VIAL IV PUSH (09:17)
[2019-09-12] MEDS: SODIUM CHLORIDE 0.9% IV 1,000 ML 80 ML IV CONT (09:20)
[2019-09-12] MEDS: DORNASE ALFA INH SOLN 1 MG/ML 2.5 ML AMP 2.5 MG INHALATION ×2 (10:07→21:01)
--- NOTE | 2019-09-12 13:55 | PM.IMPN ---
Progress Note: A&P Assessment and Plan (1) Pneumonia: Qualifiers: Laterality: unspecified laterality Lung location: unspecified part of lung Pneumonia type: due to unspecified organism Qualified Code(s): J18.9 - Pneumonia, unspecified organism Code(s): J18.9 - Pneumonia, unspecified organism Status: Acute Assessment and Plan: Influenza B positive with mild airspace opacities likely pneumonia. Completed antibiotic course. Continue bronchodilator therapy with duo nebs, pulmozyme and mucinex, PEP therapy.Transitioned to oral prednisone today. Stopped Tamiflu due to confusion. Stop ceftaroline (7 days cephalosporin) and azithromycin stopped 09/11 (5 days). Continue supplemental O2 and wean as tolerated to keep O2 saturations > 90%. Blood cultures negative. Pneumococcal antigen negative, Legionella still pending. Sputum culture not able to be tested, inadequate sample. Possible discharge in 1-2 days; will benefit from home nebulizer set up due to ongoing respiratory symptoms. (2) Influenza B: Code(s): J10.1 - Influenza due to other identified influenza virus with other respiratory manifestations Status: Acute Assessment and Plan: See above. (3) Acute respiratory failure: Qualifiers: Respiratory failure complication: hypoxia Qualified Code(s): J96.01 - Acute respiratory failure with hypoxia Code(s): J96.00 - Acute respiratory failure, unspecified whether with hypoxia or hypercapnia Status: Acute Assessment and Plan: Secondary to above. See plan above. (4) Altered mental status: Qualifiers: Altered mental status type: delirium Qualified Code(s): R41.0 - Disorientation, unspecified Code(s): R41.82 - Altered mental status, unspecified Status: Resolved Assessment and Plan: Much improved after stopping Tamiflu. Previously he had been very confused and lethargic, trying to get out of bed and being combative with staff at times. Was treated with zyprexa and seroquel those evenings. Suspect metabolic encephalopathy as a result of tamiflu vs. hospital delirium. Canceled neurology consult. (5) Ulcerative colitis: Qualifiers: Digestive disease complication type: without complication Ulcerative colitis location: unspecified ulcerative colitis location Qualified Code(s): K51.90 - Ulcerative colitis, unspecified, without complications Code(s): K51.90 - Ulcerative colitis, unspecified, without complications Status: Chronic Assessment and Plan: Patient was currently undergoing a prednisone taper for UC flare-up about a month ago. His dose of mesalamine was recently increased which patient and report has caused him to sleep all day for weeks. Held mesalamine here for now. CT abdomen/pelvis with no acute intra-abdominal abnormalities. (6) Stool culture positive for Clostridium difficile: Code(s): R19.5 - Other fecal abnormalities Status: Acute Assessment and Plan: Not isolated for such since he has not had diarrhea for the last several days but will treat based on his immunocompromised status from steroids and respiratory infection. Continue Fidaxomicin (day 5 of 10). (7) Hypertension: Qualifiers: Hypertension type: essential hypertension Qualified Code(s): I10 - Essential (primary) hypertension Code(s): I10 - Essential (primary) hypertension Status: Chronic Assessment and Plan: Continue home Coreg and losartan. Hydralazine PRN. Home coreg was increased. Monitor BP. (8) Cirrhosis: Qualifiers: Ascites presence: without ascites Hepatic cirrhosis type: unspecified hepatic cirrhosis Qualified Code(s): K74.60 - Unspecified
[2019-09-12 15:26] LABS: Legionella pneumophila Ag Ur Not Detected (Not Detected)
[2019-09-12] MEDS: FUROSEMIDE 40 MG TABLET PO (15:40)
[2019-09-13] VITALS (18 sets, daily range): BP systolic 145–153; BP diastolic 82–104; PULSE 68–88; RESP 16–20; TEMP 35.9–36.6; O2SAT 90–97
[2019-09-13] MEDS: IPRATROPIUM BR 0.02% INH SOLN 0.5 MG/2.5 ML VIAL INHALATION ×4 (02:58→19:22)
[2019-09-13] MEDS: LEVALBUTEROL NEB 1.25 MG/3 ML 0.63 MG INHALATION ×4 (02:58→19:22)
[2019-09-13 05:34] LABS: Blood Urea Nitrogen 36 mg/dL (9-20); Calcium 7.2 mg/dL (8.4-10.2); Carbon Dioxide 31 mmol/L (22-30); Chloride 100 mmol/L (98-107); Estimated CRCL calculation 54 ml/min; Estimated Glomerular Filt Rate > 60; Glucose 96 mg/dL (75-110); Magnesium 2.1 mg/dL (1.6-2.3); Phosphorus 2.7 mg/dL (2.5-4.5); Potassium 3.6 mmol/L (3.4-5.0); Sodium 138 mmol/L (137-145)
[2019-09-13] MEDS: ASPIRIN 81 MG CHEWABLE TABLET PO (09:53)
[2019-09-13] MEDS: CYANOCOBALAMIN 1,000 MCG TABLET 1000 MCG PO (09:54)
[2019-09-13] MEDS: predniSONE 20 MG TABLET 60 MG PO (09:54)
[2019-09-13] MEDS: FIDAXOMICIN 200 MG TABLET PO ×2 (09:55→21:46)
[2019-09-13] MEDS: FOLIC ACID 1 MG TABLET PO (09:55)
[2019-09-13] MEDS: FAMOTIDINE 20 MG TABLET PO ×2 (09:55→21:46)
[2019-09-13] MEDS: GABAPENTIN 300 MG CAPSULE 600 MG PO (09:55)
[2019-09-13] MEDS: LOSARTAN POTASSIUM 100 MG TABLET PO (09:55)
[2019-09-13] MEDS: carvediloL 12.5 MG TABLET PO ×2 (09:56→21:46)
[2019-09-13] MEDS: DORNASE ALFA INH SOLN 1 MG/ML 2.5 ML AMP 2.5 MG INHALATION ×2 (10:30→19:23)
--- NOTE | 2019-09-13 10:50 | PC.NURSE ---
Called to room by physical therapist. Patient in chair and suddenly became unresponsive. Right eye closed. Left eye partially open but patient unable to respond to questions. Rapid response called. Pilar FLYNN to bedside along with Dr. Hernandez and rapid response team. BP 150/104 manually. HR 71. pulse ox 91% on 1/2 liter per nasal cannula. Slight facial drooping noted on right side. During episode, patient able to squeeze my hand on both sides and bilateral pupils responsive to light. Blood sugar in the 90s. Patient returned to bed with maxi move. After in bed patient began to respond to his . Opened both eyes and was able to answer questions appropriately. Patient stated he felt weird and his left arm felt numb during the episode. Patient denied further symptoms. Orders received for stat CT of brain and ABGs obtained at bedside. IV access obtained and IV Lasix 40 mg given.
[2019-09-13 11:00] LABS: Glucose Point of Care 95 (65-105)
[2019-09-13 11:13] LABS: Alveolar/Arterial O2 Gradient 67.1 mmHg; Base Excess ABG 4.6 mEq/l (+/-2.0); Device NASAL CANNULA; Fractional Inspired Oxygen 24 %; HCO3 ABG 28.6 mEq/l (22.0-26.0); Modified Allen's Test Pass; Oxygen Saturation ABG 91.2 % (95.0-100.0); Oxyhemoglobin 88.7 % THb (90.0-100.0); PCO2 ABG 39.9 mmHg (35.0-45.0); PO2 ABG 56.5 mmHg (80.0-100.0); PO2 FiO2 Ratio Arterial Blood 2.35 %; Site Drawn LEFT RADIAL; Total Hemoglobin 11.2 g/dL (12.0-18.0); pH ABG 7.473 (7.350-7.450)
--- NOTE | 2019-09-13 11:13 | PCPTNOTE ---
The PT treatment was unable to be completed today. Pt unresponsive, called Rapid Response per ERIC Pena. Will continue per POC.
[2019-09-13] MEDS: FUROSEMIDE INJ 40 MG/4 ML VIAL IV PUSH (11:21)
--- NOTE | 2019-09-13 11:21 | ECG_ITS ---
Measurements Intervals [place] Rate: 71 P: GA: 0 QRS: -13 QRSD: 100 T: -5 QT: 401 QTc: 438 Interpretive Statements SINUS RHYTHM ATRIAL AND VENTRICULAR PREMATURE COMPLEXES INCOMPLETE RIGHT BUNDLE BRANCH BLOCK VOLTAGE CRITERIA FOR LVH BORDERLINE T WAVE ABNORMALITY- ANT/INF LEADS BASELINE ARTIFACT- V2-V5 BORDERLINE ECG Electronically Signed On 09-13-2019 17:23:28 POWER ENGINEER by Nolan Valladares D.O.
--- NOTE | 2019-09-13 11:27 | PC.NURSE ---
To CT scan via bed with transporter.
--- NOTE | 2019-09-13 11:37 | PM.IMPN ---
Progress Note: A&P Assessment and Plan (1) Unresponsive episode: Code(s): R41.89 - Other symptoms and signs involving cognitive functions and awareness Status: Resolved Assessment and Plan: Rapid response called this morning around 1050 when patient became unresponsive. He was sitting in the bedside chair after getting a breathing treatment with RT when he started to close his eyes and not answer their questions. On my arrival, a right sided facial droop is noted and he does not verbally respond to questions. Upon getting him back into bed he became a bit more awake and started to answer questions appropriately. Upper and lower extremity strength is weak but symmetric. Symptoms lasted around 10 minutes. His is at the bedside and notes that prior to this episode, he was talkative this morning and at his baseline mental status. Blood pressure 150/104 manually; pulse 71; O2 91% on 1L nasal cannula; blood sugar 95. Orders were placed for stat CT brain, ABG, EKG, 40 mg IV lasix. Possible TIA? CT brain shows no acute findings, age-related findings consistent with small vessel ischemic disease. ABG results noted, similar to his previous blood gases if not a little better aside from slightly elevated pH. pCO2 is normal, pO2 is still low but improved, O2 saturation 91 on 1L. Carotid dopplers unremarkable. Repeat chest XR unchanged. Detailed discussions were held with his at the bedside. Continue ASA 81mg. (2) Pneumonia: Qualifiers: Laterality: unspecified laterality Lung location: unspecified part of lung Pneumonia type: due to unspecified organism Qualified Code(s): J18.9 - Pneumonia, unspecified organism Code(s): J18.9 - Pneumonia, unspecified organism Status: Acute Assessment and Plan: Influenza B positive with mild airspace opacities likely pneumonia. Completed antibiotic course. Continue bronchodilator therapy with duo nebs, pulmozyme and mucinex, PEP therapy.Transitioned to oral prednisone. Stopped Tamiflu due to confusion. He was treated with 7 days of cephalosporin and 5 days of azithromycin. Continue supplemental O2 and wean as tolerated to keep O2 saturations > 90%. Blood cultures negative. Pneumococcal and legionella antigens negative. Sputum culture not able to be tested, inadequate sample. Home nebulizer set up and home O2 eval ordered, then cancelled as I was informed he may discharge to [facility] bed instead of home now. (3) Influenza B: Code(s): J10.1 - Influenza due to other identified influenza virus with other respiratory manifestations Status: Acute Assessment and Plan: See above. (4) Acute respiratory failure: Qualifiers: Respiratory failure complication: hypoxia Qualified Code(s): J96.01 - Acute respiratory failure with hypoxia Code(s): J96.00 - Acute respiratory failure, unspecified whether with hypoxia or hypercapnia Status: Acute Assessment and Plan: Secondary to above. See plan above. (5) Altered mental status: Qualifiers: Altered mental status type: delirium Qualified Code(s): R41.0 - Disorientation, unspecified Code(s): R41.82 - Altered mental status, unspecified Status: Resolved Assessment and Plan: Much improved after stopping Tamiflu, aside from the episode this morning. Previously he had been very confused and lethargic, trying to get out of bed and being combative with staff at times in the first few days of this admission. Was treated with zyprexa and seroquel those evenings. Suspect metabolic encephalopathy as a result of tamiflu vs. hospital delirium. (6) Ulcerative colitis: Qualifiers: Digestive disease complication type: without complication Ulcerative colitis location: unspecified ulcerative colitis locat
--- NOTE | 2019-09-13 12:14 | PCNWS ---
Weekly nutritional screen. Patient is tolerating current diet with adequate intake. No weight loss reported. No nutritional needs at this time.
--- NOTE | 2019-09-13 14:59 | PC.NURSE ---
Patient remains alert and responsive. Denies further symptoms of numbness to arm. Patient is awake and answering all questions appropriately. remains at bedside.
--- NOTE | 2019-09-13 19:59 | PM.PNPUL ---
Progress Note: A&P Assessment and Plan (1) Acute respiratory failure: Qualifiers: Respiratory failure complication: hypoxia Qualified Code(s): J96.01 - Acute respiratory failure with hypoxia Code(s): J96.00 - Acute respiratory failure, unspecified whether with hypoxia or hypercapnia Status: Acute Assessment and Plan: No CO2 retention. Due to influenza B and secondary pneumonia; gradual improvement. Spoke with the patient and his at the bedside. He is better overall, using 1 L/min. Brain function is better. Initially had clear drainage in the posterior pharynx, still needs to use the Cornet valve to help with getting this cleared from the airway. Increase activity, wean O2, now at 1 L/min. He has an elevated right diaphragm. so when there is additional pulmonary reserve needed, he does not have the ability to ventilate or oxygenate optimally. More exercise, wean O2. Still needs O2, which can be adjusted to his saturation. (2) Influenza B: Code(s): J10.1 - Influenza due to other identified influenza virus with other respiratory manifestations Status: Acute Assessment and Plan: He did have the vaccine this season. Had Influenza follwed by probably pneumonia, slow recovery, improved O2 need, increased activity. (3) Pneumonia: Qualifiers: Laterality: unspecified laterality Lung location: unspecified part of lung Pneumonia type: due to unspecified organism Qualified Code(s): J18.9 - Pneumonia, unspecified organism Code(s): J18.9 - Pneumonia, unspecified organism Status: Acute Assessment and Plan: No pathogen identified; continues to have infiltrates L>R with elevated right diaphragm. (4) Hypoxia: Code(s): R09.02 - Hypoxemia Status: Acute Assessment and Plan: O2 need is lower, 1 L/minute. His ABG today showed mild hypoxemia pO2 56.5 on 2 L/min, so needs to continue O2. (5) Unresponsive episode: Code(s): R41.89 - Other symptoms and signs involving cognitive functions and awareness Status: Resolved Assessment and Plan: Appears to have recovered. Etiology unclear. Subjective Date/time seen: 09/13/19 19:59 This 78 yo man is seen in follow up for influenza B with secondary pneumonia. He was doing well, appeared as if he might go home, then had an episode of unconsciousness at 10:50 am. His labs and imaging studies were not remarkable. He had right facial droop and was nonverbal. Head CT was negative for a stroke. His symptoms resolved in 10 minutes. Review of Systems Review of Systems: Narrative: Now feels better. At the time of the event, was lightheaded, dizzy, weak, passed out, had right facial dropp. nearly passed out, Exam Narrative: Exam Narrative: He is more mobile, not as stiff today. Has been using a walker to move about. Const: General: no acute distress Eyes: General: appearance normal, both eyes and all related structures Neck: Neck: no JVD Resp: Effort & Inspection: normal respiratory effort Auscultation: diminished lung sounds Other: Exam is abnormal; has good air entry; bilateral crackles in the bases L>R. scattered rhonchi. No wheeze today. Cardio: Rate: regular rate Rhythm: regular rhythm Heart sounds: no murmurs GI: Auscultation: normal bowel sounds Other: umbilical hernia Skin: Other: scattered ecchymoses on the lower legs; no edema, skin is warm, dry; no clubbing. Objective Data Vital Signs Vital Signs: Vital Signs - 24 hr 09/12/19 20:58 09/12/19 21:02 09/12/19 21:10 Temperature Pulse Rate 86 82 Respiratory Rate 22 H 18 Blood Pressure Pulse Oximetry 87 L 09/12/19 21:37 09/13/19 02:58 09/13/19 03:07 Temperature Pulse Rate 88 85 82 Respiratory Rate 20 20 Blood Pressure Pulse Oximetry 09/13/19 05:53 09/13/19 09:56 09/13/19 10:33 Temperature 36.5 C Pulse Rate 72 88 68 Respiratory Rate 16 18 Blood Pressure 153/88 H Pulse
[2019-09-14] VITALS (28 sets, daily range): BP systolic 77–190; BP diastolic 55–120; PULSE 61–88; RESP 16–20; TEMP 35.9–36.2; O2SAT 94–96
[2019-09-14] MEDS: IPRATROPIUM BR 0.02% INH SOLN 0.5 MG/2.5 ML VIAL INHALATION ×4 (01:08→19:28)
[2019-09-14] MEDS: LEVALBUTEROL NEB 1.25 MG/3 ML 0.63 MG INHALATION ×4 (01:09→19:29)
[2019-09-14] MEDS: hydrALAZINE HCL 20 MG/ML VIAL 10 MG IV PUSH (05:16)
[2019-09-14 05:50] LABS: Hematocrit 31.6 % (42.0-52.0); Hemoglobin 9.7 g/dL (14.0-18.0); Mean Corpuscular HGB Conc 30.7 g/dl (32-36); Mean Corpuscular Volume 94.3 fl (80-100); Mean Platelet Volume 11.3 fl (7.4-10.4); Platelet Count Result 179 k/mm3 (150-375); Red Blood Count 3.35 M/mm3 (4.6-6.20)
[2019-09-14 05:54] LABS: INR 1.2; Prothrombin Time 14.7 Seconds (11.1-14.7)
[2019-09-14 05:58] LABS: Alanine Aminotransferase 20 U/L (4-50); Albumin Level 2.4 g/dL (3.5-5.1); Alkaline Phosphatase 49 U/L (38-126); Aspartate Amino Transferase 19 U/L (17-59); Bilirubin,Total 0.5 mg/dL (0.2-1.3); Blood Urea Nitrogen 37 mg/dL (9-20); Calcium 7.7 mg/dL (8.4-10.2); Carbon Dioxide 37 mmol/L (22-30); Chloride 98 mmol/L (98-107); Estimated CRCL calculation 50 ml/min; Estimated Glomerular Filt Rate 58; Glucose 109 mg/dL (75-110); Magnesium 2.1 mg/dL (1.6-2.3); Phosphorus 3.6 mg/dL (2.5-4.5); Potassium 3.4 mmol/L (3.4-5.0); Sodium 139 mmol/L (137-145)
[2019-09-14] MEDS: ASPIRIN 81 MG CHEWABLE TABLET PO (09:12)
[2019-09-14] MEDS: predniSONE 20 MG TABLET 60 MG PO (09:13)
[2019-09-14] MEDS: POLYSACCHARIDE IRON COMPLEX 150 MG CAPSULE 450 MG PO (09:13)
[2019-09-14] MEDS: carvediloL 12.5 MG TABLET PO (09:14)
[2019-09-14] MEDS: FIDAXOMICIN 200 MG TABLET PO ×2 (09:14→21:18)
[2019-09-14] MEDS: LOSARTAN POTASSIUM 100 MG TABLET PO (09:14)
[2019-09-14] MEDS: CYANOCOBALAMIN 1,000 MCG TABLET 1000 MCG PO (09:14)
[2019-09-14] MEDS: FOLIC ACID 1 MG TABLET PO (09:14)
[2019-09-14] MEDS: GABAPENTIN 300 MG CAPSULE 600 MG PO (09:15)
[2019-09-14] MEDS: FAMOTIDINE 20 MG TABLET PO ×2 (09:15→21:18)
[2019-09-14] MEDS: DORNASE ALFA INH SOLN 1 MG/ML 2.5 ML AMP 2.5 MG INHALATION ×2 (10:56→19:29)
[2019-09-14 11:44] LABS: Glucose Point of Care 119 (65-105)
--- NOTE | 2019-09-14 12:17 | PM.IMPN ---
Progress Note: A&P Assessment and Plan (1) Unresponsive episode: Code(s): R41.89 - Other symptoms and signs involving cognitive functions and awareness <Urmila Cohen PA-C - Last Filed: 09/14/19 12:46> Status: Resolved <Urmila Cohen PA-C - Last Filed: 09/14/19 12:46> Assessment and Plan: -----Pt had another episode today while sitting in the chair. it appears this is due to hypertension at this time since bp was 77/62 and symptoms resolved when in bed and bp improved 110/68. He was very high this morning 190s sytolic which hydralizine and then his morning meds were given. Unsure why his bp is so labile. I will give him 500cc of fluids at this time and stop the mucinex. Will check orthos daily. It is odd that his bp is this low since he has been so high during his stay--worry about sepsis or possible PE. His corgeg was previously increased so I will decrease it now. I stopped his hydralizine as well. He had this event yesterday as well but his bp was fine--which complicates the etiology. ddx include stroke vs TIA (CT brain normal yesterday, MRI ordered), Seizure (EEG ordered and neuro consulted), PE (CTA ordered) pheochromocytoma (ct abd normal, consider urine studies after discharge), medication side effects (reviewed), elevated ammonia (ordered), etc. <Urmila Cohen PA-C - Last Filed: 09/14/19 12:46> (2) Pneumonia: Qualifiers: Laterality: unspecified laterality Lung location: unspecified part of lung Pneumonia type: due to unspecified organism Qualified Code(s): J18.9 - Pneumonia, unspecified organism <Urmila Cohen PA-C - Last Filed: 09/14/19 12:46> Code(s): J18.9 - Pneumonia, unspecified organism <Urmila Cohen PA-C - Last Filed: 09/14/19 12:46> Status: Acute <Urimla Cohen PA-C - Last Filed: 09/14/19 12:46> Assessment and Plan: -----Influenza B positive with mild airspace opacities likely pneumonia. Completed antibiotic course. Continue bronchodilator therapy with duo nebs, pulmozyme and PEP therapy.Transitioned to oral prednisone (decreased today). Blood cultures negative. Pneumococcal and legionella antigens negative. Sputum culture not able to be tested, inadequate sample. <Urmila Cohen PA-C - Last Filed: 09/14/19 12:46> (3) Influenza B: Code(s): J10.1 - Influenza due to other identified influenza virus with other respiratory manifestations <Urmila Reyezrufina PA-C - Last Filed: 09/14/19 12:46> Status: Acute <Urmila Maurice Cohen PA-C - Last Filed: 09/14/19 12:46> Assessment and Plan: See above. <Urmila Reyezrufina PA-C - Last Filed: 09/14/19 12:46> (4) Acute respiratory failure: Qualifiers: Respiratory failure complication: hypoxia Qualified Code(s): J96.01 - Acute respiratory failure with hypoxia <Urmilarogers Reyezrufina PA-C - Last Filed: 09/14/19 12:46> Code(s): J96.00 - Acute respiratory failure, unspecified whether with hypoxia or hypercapnia <Urmila Maurice Reyezrufina, PA-C - Last Filed: 09/14/19 12:46> Status: Acute <Urmila Maurice Cohen, PA-C - Last Filed: 09/14/19 12:46> Assessment and Plan: -----s/s to above <Urmila Reyezrufina PA-C - Last Filed: 09/14/19 12:46> (5) Altered mental status: Qualifiers: Altered mental status type: delirium Qualified Code(s): R41.0 - Disorientation, unspecified <Urmila Maurice Reyezrufina PA-C - Last Filed: 09/14/19 12:46> Code(s): R41.82 - Altered mental status, unspecified <Urmila Maurice Reyezrufina PA-C - Last Filed: 09/14/19 12:46> Status: Resolved <Urmila ACarrie Vicki PA-C - Last Filed: 09/14/19 12:46> Assessment and Plan: -----see above <Urmila A. Cadmus, PA-C - Last Filed: 09/14/19 12:46> (6) Ulcerative colitis: Qualifiers: Digestive disease complication type: without complication Ulcerative colitis l
[2019-09-14 12:26] LABS: Hemoglobin 10.3 g/dL (14.0-18.0)
--- NOTE | 2019-09-14 12:29 | PC.NURSE ---
To Radiology per stretcher.
[2019-09-14 12:34] LABS: Ammonia < 9 umol/L (9-30); Lactic Acid Reflex 2.1 mmol/L (0.7-2.1)
--- NOTE | 2019-09-14 12:59 | ECG_ITS ---
Measurements Intervals [place] Rate: 76 P: -35 NV: 150 QRS: -13 QRSD: 100 T: 2 QT: 408 QTc: 460 Interpretive Statements SINUS RHYTHM ATRIAL PREMATURE COMPLEX INCOMPLETE RIGHT BUNDLE BRANCH BLOCK VOLTAGE CRITERIA FOR LVH MINIMAL Q WAVES- LATERAL LEADS BORDERLINE T WAVE ABNORMALITY- ANT/INF LEADS BORDERLINE ECG Electronically Signed On 09-14-2019 15:07:45 [employer] by Nolan Valladares D.O.
--- NOTE | 2019-09-14 14:25 | PM.PNPUL ---
Progress Note: A&P Assessment and Plan (1) Influenza B: Code(s): J10.1 - Influenza due to other identified influenza virus with other respiratory manifestations Status: Acute (2) Viral pneumonia: Code(s): J12.9 - Viral pneumonia, unspecified Status: Acute Assessment and Plan: - High risk for superimposed bacterial pneumonia in the setting of Influenza - Will start Doxycyline 100 mg IV bid given no significant clinical improvement - Sputum inudction for sputum culture - repeat chest imaging if oxygenation worsens. - continue nebulized bronchodilators as prescribed. - would limit prednisone to 5-7 days total. Patients may have worse outcomes in the this setting. (3) Sleep attack: Code(s): G47.419 - Narcolepsy without cataplexy Status: Acute Assessment and Plan: Likely due to underlying ANITA and exacerbated by acute illness. - will order CPAP 12 cm while napping and QHS Time Spent With Patient Time with patient: 15 - 25 minutes Subjective Date/time seen: 09/14/19 14:25 Still very weak and short of breath. His episode from yesterday and today is simply dosing off in the setting of probable ANITA that's untreated. He has had these symptoms for past 1-2 months according with frequent night time awakenings and falling asleep during the day as well as some snoring at night. This is likely being exacerbated by his acute illness and frequent awakenings at night for vitals and just not being in his home settings. He dyspnea, chest tightness and wheezing are no better than admission he tells me. He has some sputum production. Review of Systems Review of Systems: All systems reviewed & are unremarkable except as noted in HPI and below Exam Narrative: Exam Narrative: Falls asleep frequently as I am speaking with him Const: General: comfortable and no acute distress HENMT: Mouth: Yes moist mucous membranes Neck: Neck: supple and no JVD Resp: Auscultation: rhonchi, wheezes and diminished lung sounds Cardio: Rate: regular rate Rhythm: regular rhythm Heart sounds: no gallops, no murmurs and no rubs GI: Auscultation: normal bowel sounds Skin: General skin exam: normal color Other: diffuse echymosis Extrem: General: no edema and no pedal edema Objective Data Vital Signs Vital Signs: Vital Signs - 24 hr 09/13/19 15:47 09/13/19 15:57 09/13/19 16:00 Temperature Pulse Rate 73 74 70 Respiratory Rate 20 20 Blood Pressure Pulse Oximetry 09/13/19 19:23 09/13/19 19:26 09/13/19 19:30 Temperature Pulse Rate 77 78 Respiratory Rate 20 20 Blood Pressure Pulse Oximetry 92 09/13/19 20:00 09/13/19 21:46 09/13/19 22:05 Temperature 35.9 C L Pulse Rate 79 77 77 Respiratory Rate 16 Blood Pressure 147/87 H Pulse Oximetry 97 09/14/19 00:00 09/14/19 01:09 09/14/19 01:14 Temperature Pulse Rate 72 79 76 Respiratory Rate 20 20 Blood Pressure Pulse Oximetry 09/14/19 04:00 09/14/19 06:04 09/14/19 06:10 Temperature 35.9 C L Pulse Rate 71 72 Respiratory Rate 16 Blood Pressure 190/120 H 154/87 H Pulse Oximetry 95 09/14/19 08:00 09/14/19 09:14 09/14/19 10:49 Temperature Pulse Rate 75 62 62 Respiratory Rate 20 Blood Pressure Pulse Oximetry 94 09/14/19 11:00 09/14/19 11:25 09/14/19 11:35 Temperature 36.2 C L Pulse Rate 61 88 Respiratory Rate 20 20 Blood Pressure 77/62 L 110/68 Pulse Oximetry 96 Intake/Output Intake/Output: Intake & Output 09/11/19 09/12/19 09/13/19 09/14/19 23:59 23:59 23:59 23:59 Intake Total 3100 1830 1770 440 Output Total 1150 200 650 200 Balance 1950 1630 1120 240 Meds/Results Medications: Active Medications Generic Name Dose Route Start Last Admin Trade Name Freq PRN Reason Stop Dose Admin Acetaminophen 650 mg 09/05/19 14:21 Tylenol Tablet PO Q4H PRN Mild Pain (1-3) or Fever Aspirin 81 mg 09/06/19 08:00 09/14/19 09:12
--- NOTE | 2019-09-14 14:30 | PC.NURSE ---
patient returned from radiology by stretcher.
[2019-09-14] MEDS: SODIUM CHLORIDE 0.9% IV 500 ML 75 ML IV CONT (14:46)
[2019-09-14 15:20] LABS: Reflex Lactic Acid Yes or No Add Lactic
[2019-09-14 16:34] LABS: Lactic Acid 2.8 mmol/L (0.7-2.1)
--- NOTE | 2019-09-14 17:14 | PC.NURSE ---
Notified GEE Sanchez about patients lactic acid level and ultrasound results.
[2019-09-14] MEDS: ENOXAPARIN 100 MG/ML SYRINGE 85 MG SUB-Q (17:31)
--- NOTE | 2019-09-14 18:14 | CONS_ITS ---
DATE OF CONSULTATION: HISTORY OF PRESENT ILLNESS: This 78 years old right-handed male has been admitted to [facility] through the emergency room with the chief complaint of influenza B pneumonia with hypoxia in addition to ongoing history of 1. Ulcerative colitis. 2. Hypertension. 3. Cirrhosis of the liver. The patient reported to the ER because of watery, nonbloody diarrhea x2 and generalized weakness and aches and pains in the arms, back, and legs along with the generalized fatigue. He had been diagnosed with influenza and had been on prednisone tapering dosage for the ulcerative colitis about 30 days ago for which he is followed by Dr. Hewitt. Neuro consultation has been obtained as per the hospitalist to rule out the possibly any neurological problem. Since admission, the patient has been documented and has been carrying out the diagnosis of bilateral cataract extraction, cirrhosis of the liver, GERD, hypertension, ulcerative colitis, osteoarthritis, peripheral neuropathy, and umbilical hernia, which has been repaired and also history of right partial knee replacement. SOCIAL HISTORY: He is a nonsmoker. Quit drinking alcohol and smoking 40 years ago. MEDICATIONS: At the time of admission to the hospital, he was taking multiple medications, which included 1. Aspirin. 2. Azathioprine. 3. Carvedilol. 4. Cholecalciferol. 5. Cyanocobalamin. 6. Denosumab. 7. Folic acid. 8. Gabapentin. 9. Losartan. 10. Mesalamine. 11. Multivitamin. 12. Prednisone. 13. Polysaccharide. ALLERGIES: HE IS NOT ALLERGIC TO ANY MEDICATION. ? Initial exam has been documented to him to have the trace pitting edema, partially distended abdomen, crackles and wheezing on the pulmonary examination and nonfocal neurological examination. Since that time, he has had further evaluation. Most recent CBC on September 14, revealed him to have a hemoglobin of 10.3, lactic acid of 2.1 and 2.8 with ammonia level of less than 9. He has had Doppler studies on September 14, which documented positive for left soleus and saphenous vein thrombus, node thrombosis on the right side, chest CTA scan with positive for small right-sided pulmonary embolism, patchy left-sided ground-glass pneumonia, chronic right hemidiaphragm elevation with atelectasis, cardiomegaly, and dilated pulmonary arteries. Brain MRI showing the chronic age-related changes with right sphenoid mucoperiosteal thickening and some fluid. Carotid Doppler study less than 50% stenosis bilaterally and chest x-ray on September 13, persistent with bilateral infiltrate involving left mid and both lower lung zones. As per the notes evaluation, the patient has another episode when he was sitting in the chair. When he became cognitively impaired, he was notedly hypotensive though it was a high in the morning of 190 systolic. He received the IV fluids. His Coreg was decreased. Hydralazine was stopped and neuro consultation was obtained for the possibility of TIA versus a stroke. As mentioned before, he had the MRI on September 14, which was negative and repeat CT scan has been ordered. PHYSICAL EXAMINATION: GENERAL: On examination, he is awake, alert, and cooperative. HEENT: Head normocephalic with no cranial bruit. Ear, nose, throat exam normal. NECK: Supple. HEART: Regular. LUNGS: With wheezing. ABDOMEN: Soft. NEUROLOGICAL: He is awake, alert. Normocephalic. Pupils round and regular. Hansen of vision full. Extraocular movements full. Face symmetrical. Tongue midline. Motor examination revealed him to have decreased strength in upper and lower extremities. Reflexes are sluggish and plantars are downgoing. IMPRESSION AND PLAN: Metabolic encephalopathy with orthostatic hypotension, which could be because of the underlying labil
--- NOTE | 2019-09-14 18:39 | PC.NURSE ---
On 09/14/19, the oriente, Iglesia Kemp, provided care and completed [employer] documentation on this patient. I have reviewed the joee's documentation and agree with the findings.
[2019-09-14] MEDS: carvediloL 6.25 MG TABLET PO (21:17)
[2019-09-15] VITALS (26 sets, daily range): BP systolic 86–169; BP diastolic 62–104; PULSE 68–96; RESP 16–20; TEMP 35.9–37.2; O2SAT 95–97
[2019-09-15] MEDS: IPRATROPIUM BR 0.02% INH SOLN 0.5 MG/2.5 ML VIAL INHALATION ×4 (01:35→22:43)
[2019-09-15] MEDS: LEVALBUTEROL NEB 1.25 MG/3 ML 0.63 MG INHALATION ×4 (01:35→22:43)
[2019-09-15] MEDS: SODIUM CHLOR 3% 15 ML NEB (RESPIRATORY THERAPY) 6 ML INHALATION (04:37)
[2019-09-15] MEDS: ENOXAPARIN 100 MG/ML SYRINGE 85 MG SUB-Q ×2 (05:22→17:35)
[2019-09-15 05:29] LABS: Hematocrit 30.6 % (42.0-52.0); Hemoglobin 9.7 g/dL (14.0-18.0); Mean Corpuscular HGB Conc 31.7 g/dl (32-36); Mean Corpuscular Hemoglobin 29.6 pg (26-34); Mean Corpuscular Volume 93.3 fl (80-100); Mean Platelet Volume 11.1 fl (7.4-10.4); Platelet Count Result 191 k/mm3 (150-375); Red Blood Count 3.28 M/mm3 (4.6-6.20); Red Cell Distribution Width 18.1 % (11.5-14.5); White Blood Count 7.6 K/mm3 (4.5-10.0)
[2019-09-15 05:40] LABS: Lactic Acid 0.9 mmol/L (0.7-2.1)
[2019-09-15 05:47] LABS: Alanine Aminotransferase 18 U/L (4-50); Albumin Level 2.4 g/dL (3.5-5.1); Alkaline Phosphatase 50 U/L (38-126); Aspartate Amino Transferase 18 U/L (17-59); Bilirubin,Total 0.4 mg/dL (0.2-1.3); Blood Urea Nitrogen 37 mg/dL (9-20); Calcium 7.8 mg/dL (8.4-10.2); Carbon Dioxide 36 mmol/L (22-30); Chloride 98 mmol/L (98-107); Estimated CRCL calculation 54 ml/min; Estimated Glomerular Filt Rate > 60; Glucose 119 mg/dL (75-110); Potassium 3.5 mmol/L (3.4-5.0); Sodium 139 mmol/L (137-145)
[2019-09-15] MEDS: FIDAXOMICIN 200 MG TABLET PO ×2 (09:05→21:04)
[2019-09-15] MEDS: FOLIC ACID 1 MG TABLET PO (09:06)
[2019-09-15] MEDS: GABAPENTIN 300 MG CAPSULE 600 MG PO (09:06)
[2019-09-15] MEDS: predniSONE 10 MG TABLET 50 MG PO (09:06)
[2019-09-15] MEDS: CYANOCOBALAMIN 1,000 MCG TABLET 1000 MCG PO (09:06)
[2019-09-15] MEDS: ASPIRIN 81 MG CHEWABLE TABLET PO (09:06)
[2019-09-15] MEDS: FAMOTIDINE 20 MG TABLET PO ×2 (09:06→21:04)
[2019-09-15] MEDS: DORNASE ALFA INH SOLN 1 MG/ML 2.5 ML AMP 2.5 MG INHALATION (09:07)
[2019-09-15] MEDS: LOSARTAN POTASSIUM 50 MG TABLET PO (10:03)
[2019-09-15] MEDS: SODIUM CHLORIDE 0.9% IV 1,000 ML 75 ML IV CONT ×2 (10:07→23:10)
--- NOTE | 2019-09-15 11:13 | WPDNEUROPN ---
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 Status: Acute (2) Viral pneumonia: Code(s): J12.9 - Viral pneumonia, unspecified Status: Acute (3) Unresponsive episode: Code(s): R41.89 - Other symptoms and signs involving cognitive functions and awareness Status: Resolved (4) Stool culture positive for Clostridium difficile: Code(s): R19.5 - Other fecal abnormalities Status: Acute (5) DVT prophylaxis: Code(s): Z29.9 - Encounter for prophylactic measures, unspecified Status: Acute (6) Altered mental status: Qualifiers: Altered mental status type: delirium Qualified Code(s): R41.0 - Disorientation, unspecified Code(s): R41.82 - Altered mental status, unspecified Status: Resolved (7) Acute respiratory failure: Qualifiers: Respiratory failure complication: hypoxia Qualified Code(s): J96.01 - Acute respiratory failure with hypoxia Code(s): J96.00 - Acute respiratory failure, unspecified whether with hypoxia or hypercapnia Status: Acute (8) Peripheral neuropathy: Qualifiers: Peripheral neuropathy type: polyneuropathy, unspecified Qualified Code(s): G62.9 - Polyneuropathy, unspecified Code(s): G62.9 - Polyneuropathy, unspecified Status: Chronic (9) Hypertension: Qualifiers: Hypertension type: essential hypertension Qualified Code(s): I10 - Essential (primary) hypertension Code(s): I10 - Essential (primary) hypertension Status: Chronic (10) Fluid overload: Code(s): E87.70 - Fluid overload, unspecified Status: Acute (11) Influenza B: Code(s): J10.1 - Influenza due to other identified influenza virus with other respiratory manifestations Status: Acute (12) Hypoxia: Code(s): R09.02 - Hypoxemia Status: Acute (13) Acute bronchospasm: Code(s): J98.01 - Acute bronchospasm Status: Acute (14) Ulcerative colitis: Qualifiers: Ulcerative colitis location: unspecified ulcerative colitis location Digestive disease complication type: without complication Qualified Code(s): K51.90 - Ulcerative colitis, unspecified, without complications Code(s): K51.90 - Ulcerative colitis, unspecified, without complications Status: Chronic Additional Plan stable Review of Systems Review of Systems: Narrative: feeling better ,less cnfused at the bedside All systems reviewed & are unremarkable except as noted in HPI and below Exam Const: General: cooperative, no acute distress, alert, awake and ill appearing Nutritional Appearance: obese Orientation/consciousness: oriented to person and oriented to place Eyes: General: appearance normal, both eyes and all related structures Alignment and Position: alignment normal Sclera: sclerae normal Cornea: corneas normal Pupils: Equal, round and reactive pupils present EOM: EOMs intact bilaterally Neck: Neck: full ROM Resp: Auscultation: clear to auscultation bilaterally Cardio: Rate: regular rate GI: Auscultation: normal bowel sounds Neuro: General: oriented to person, oriented to place, moves all extremities and no focal motor deficits Cranial nerves: Yes CN's II-XII intact bilaterally, Yes Equal, round and reactive pupils present, Yes Bilaterally intact EOM present, Yes Nystagmus not present, Yes Normal facial strength present, Yes Midline tongue present and Yes Symmetric palate elevation present Speech: normal speech (slow follows) Motor exam (neuro): 5/5 motor strength present throughout (4/5) and Motor fasciculations not present Deep tendon reflexes (DTR's): Right triceps reflex intensity grade: 1+, Left triceps reflex intensity grade: 1+, Rt Biceps (C5, C6): 1+, Left biceps reflex intensity grade: 1+, Right brachioradialis reflex intensity grade: 1+, Left brachioradialis reflex intensity grade
--- NOTE | 2019-09-15 14:54 | PM.PNPUL ---
Progress Note: A&P Assessment and Plan (1) Viral pneumonia: Code(s): J12.9 - Viral pneumonia, unspecified Status: Acute Assessment and Plan: - f/u on sputum culture - if BP stabilizes he may be a candidate for diagnostic bronchscopy - would consider weaning prednisone off in light of persistent viral pneumonia symptoms - continue doxycycline 100 mg IV bid for now. (2) Hypotension, iatrogenic: Code(s): I95.89 - Other hypotension Status: Acute Assessment and Plan: Not sure if this is orthostatic in nature or due to autonomic dysregulation as BP drop should occur within two minutes of standing technically. Question need for Parkson's Disease or other causes for autonomic failure Time Spent With Patient Time with patient: 15 - 25 minutes Subjective Date/time seen: 09/15/19 14:54 Interval history: More alert today. Still had diffuse bilateral rhonchi. Sputum culture induced yesterday and is pending. tolerated only an hour of CPAP last night. Periodic drops in blood pressure still occurs without reflex tachycardia. says this morning there was no witness of mental status changes. Exam Narrative: Exam Narrative: Diffuse weakness Const: General: comfortable and no acute distress HENMT: Mouth: Yes moist mucous membranes Neck: Neck: supple and no JVD Resp: Auscultation: rales and rhonchi Cardio: Rate: regular rate Rhythm: regular rhythm Heart sounds: no murmurs and no rubs GI: Auscultation: normal bowel sounds Extrem: General: normal to inspection and no pedal edema Psych: Mental Status: mental status grossly normal Objective Data Vital Signs Vital Signs: Vital Signs - 24 hr 09/14/19 15:32 09/14/19 16:00 09/14/19 19:30 Temperature Pulse Rate 65 71 82 Respiratory Rate 20 20 Blood Pressure Pulse Oximetry 09/14/19 19:32 09/14/19 19:42 09/14/19 20:00 Temperature Pulse Rate 86 73 Respiratory Rate 20 Blood Pressure Pulse Oximetry 95 09/14/19 21:17 09/14/19 21:49 09/14/19 21:50 Temperature Pulse Rate 68 Respiratory Rate Blood Pressure 135/80 98/55 L Pulse Oximetry 09/14/19 21:51 09/14/19 21:52 09/14/19 21:53 Temperature Pulse Rate Respiratory Rate Blood Pressure 135/80 119/70 98/55 L Pulse Oximetry 09/14/19 22:00 09/14/19 22:06 09/15/19 00:00 Temperature 36.0 C L Pulse Rate 70 71 71 Respiratory Rate 16 Blood Pressure 135/80 Pulse Oximetry 95 96 09/15/19 01:38 09/15/19 01:44 09/15/19 04:00 Temperature Pulse Rate 92 96 78 Respiratory Rate 20 20 Blood Pressure Pulse Oximetry 09/15/19 04:38 09/15/19 04:44 09/15/19 05:58 Temperature 36.2 C L Pulse Rate 81 78 78 Respiratory Rate 20 20 19 Blood Pressure 166/90 H Pulse Oximetry 97 09/15/19 08:00 09/15/19 08:11 09/15/19 09:08 Temperature 36.5 C Pulse Rate 68 92 Respiratory Rate 20 18 Blood Pressure 86/62 L 142/100 H Pulse Oximetry 96 09/15/19 09:10 09/15/19 09:20 09/15/19 09:45 Temperature Pulse Rate 95 Respiratory Rate 18 Blood Pressure Pulse Oximetry 96 97 09/15/19 14:00 Temperature 37.2 C Pulse Rate 82 Respiratory Rate 20 Blood Pressure 149/78 H Pulse Oximetry 96 Intake/Output Intake/Output: Intake & Output 09/12/19 09/13/19 09/14/19 09/15/19 23:59 23:59 23:59 23:59 Intake Total 1830 1770 2020 780 Output Total 200 650 750 500 Balance 1630 1120 1270 280 Meds/Results Medications: Active Medications Generic Name Dose Route Start Last Admin Trade Name Freq PRN Reason Stop Dose Admin Acetaminophen 650 mg 09/05/19 14:21 Tylenol Tablet PO Q4H PRN Mild Pain (1-3) or Fever Aspirin 81 mg 09/06/19 08:00 09/15/19 09:06 Aspirin Chewable PO 81 mg DAILY@0800 [facility] Administration Cyanocobalamin 1,000 mcg 09/06/19 09:00 09/15/19 09:06 Vitamin B-12 Tab PO 1,000 mcg DAILY AL Administration Dornase Stephan 2.5 mg 09/07/19 20:00
--- NOTE | 2019-09-15 15:58 | PM.IMPN ---
Progress Note: A&P Assessment and Plan (1) Orthostatic hypotension: Code(s): I95.1 - Orthostatic hypotension Status: Acute Assessment and Plan: -----this morning the patient's blood pressure while supine was 169 systolic and dropped to 86 when they stood him up. He was complaining of dizziness at this time. We will continue with the IV fluids and Nuno hose and recheck Q shift. I have talked to the director of student financial services who recommends possibly of adjusting his prednisone. Consider switching to hydrocortisone 20 mg b.i.d. but I will consult Dr. Hewitt since he is his GI doctor and has him on a certain regimen. The patient and family states that he has been on steroids for 12 years. Echo looks okay. Coreg stopped (2) Pulmonary embolism: Code(s): I26.99 - Other pulmonary embolism without acute cor pulmonale Status: Acute Assessment and Plan: -----noted on CTA. Could be contributing to hypoxia but likely not causing his transient decreased level of awareness. Continue Lovenox at this time and then transition to oral once he improves. DVT also noted. Unsure if was present on admission or not. (3) Unresponsive episode: Code(s): R41.89 - Other symptoms and signs involving cognitive functions and awareness Status: Resolved Assessment and Plan: -----likely due to orthostatic hypotension. MRI of the brain is negative for acute stroke. CTA does show a blood clot but not big enough to be causing his decreased level of awareness. See above (4) Pneumonia: Qualifiers: Pneumonia type: due to unspecified organism Laterality: unspecified laterality Lung location: unspecified part of lung Qualified Code(s): J18.9 - Pneumonia, unspecified organism Code(s): J18.9 - Pneumonia, unspecified organism Status: Acute Assessment and Plan: -----Influenza B positive with mild airspace opacities likely pneumonia. Completed antibiotic course but now on doxycycline since he is not improving. He is immunosuppressed and the director of student financial services recommended Tamiflu x5 days. Continue bronchodilator therapy with duo nebs, pulmozyme and PEP therapy. Patient is on 30 mg of prednisone which is his home dose from his taper. Blood cultures negative. Pneumococcal and legionella antigens negative. New sputum sample sent (5) Influenza B: Code(s): J10.1 - Influenza due to other identified influenza virus with other respiratory manifestations Status: Acute Assessment and Plan: See above. (6) Acute respiratory failure: Qualifiers: Respiratory failure complication: hypoxia Qualified Code(s): J96.01 - Acute respiratory failure with hypoxia Code(s): J96.00 - Acute respiratory failure, unspecified whether with hypoxia or hypercapnia Status: Acute Assessment and Plan: -----2/2 to above. Resolved (7) Altered mental status: Qualifiers: Altered mental status type: delirium Qualified Code(s): R41.0 - Disorientation, unspecified Code(s): R41.82 - Altered mental status, unspecified Status: Resolved Assessment and Plan: -----see above (8) Ulcerative colitis: Qualifiers: Ulcerative colitis location: unspecified ulcerative colitis location Digestive disease complication type: without complication Qualified Code(s): K51.90 - Ulcerative colitis, unspecified, without complications Code(s): K51.90 - Ulcerative colitis, unspecified, without complications Status: Chronic Assessment and Plan: ------Patient was currently undergoing a prednisone taper for UC flare-up about a month ago. His dose of mesalamine was recently increased which patient and report has caused him to sleep all day for weeks. Held mesalamine here for now. CT abdomen/pelvis with no acute intra-abdominal abnormalities. See above (9) Stool culture positive for Clostridium difficil
--- NOTE | 2019-09-15 18:19 | WPDGICN ---
Assessment and Plan Additional Plan This is an 78-year-old white male patient mass to see at the request of the hospitalist service. Patient has a long history of ulcerative colitis previously followed in [place]. It in May had endoscopy at our institution found to have significant pancolitis. For many years he has been maintained on prednisone. Over the last several months prednisone has been continued in Imuran started. He developed influenza B and was admitted the hospital September 05, 2019. Imuran was discontinued. Prednisone dose was increased. To assist with respiratory difficulties. Patient had brief episode of diarrhea. In general bowel habits have been normal since he has been hospitalized. Stool culture on 09/07/2019 revealed C difficile toxin positivity. Patient is now completing a course of Dificid. He denies abdominal pain or diarrhea at this point. He denies any blood in his stools. He is eating without difficulty. Past medical history is is significant for pneumonia secondary to influenza B. patient has a long history of ulcerative colitis as stated. His felt to have cirrhosis etiology uncertain. During his hospital stay of pulmonary embolus has been described. Home medicines include Imuran, Lialda, and prednisone at 30 mg p.o. daily. Currently Imuran is on hold. Prednisone has been increased to 50mg p.o. daily to improve Respiratory function. Physical exam reveals patient to be alert he is on supplemental oxygen somewhat short of breath at rest. HEENT exam is unremarkable. He is anicteric. Lungs reveal a few rhonchi. Heart is without murmur. Abdomen bowel sounds are present soft nontender with no organomegaly. Digital rectal exam is normal. Impression 1. Ulcerative colitis. Clinically stable. Plan is to taper prednisone as soon as feasible. Prednisone may be required for Respiratory status however. Would hope to restart Imuran when felt safe from Infectious Disease perspective. This hopefully will assist in tapering off prednisone. Continue Lialda. 2. C difficile colitis. Current we know diarrhea. Patient should complete course of Dificid soon. 3. Pneumonia. 4. Influenza B. 5. 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 No additional therapy felt warranted at This time. Plan is to continue therapy for ulcerative colitis as stated hopefully re- implemented Imuran when infection is adequately treated. Taper prednisone as patient is able to. GI Consult Note Consult date/time: 09/15/19 18:19 HPI: Alex Wakefield II is a 78 year old male PMFSH Past Medical History Medical History (Updated 09/15/19 @ 15:59 by Urmila Cohen PA-C) Cataracts, bilateral Cirrhosis GERD (gastroesophageal reflux disease) H/O: HTN (hypertension) Hx of ulcerative colitis Hypertension OA (osteoarthritis) Peripheral neuropathy Ulcerative colitis Umbilical hernia Surgical History Surgical History (Updated 09/06/19 @ 07:16 by Urmila Cohen PA-C) History of umbilical hernia repair Hx of bilateral cataract extraction Status post right partial knee replacement Family History Family History (Updated 09/05/19 @ 16:00 by Lala Macedo RN) Other Unknown family medical history Social History Social History (Updated 09/06/19 @ 07:16 by Urmila Cohen PA-C) Social History: Patient lives in were known OA with his . He is a nonsmoker and quit drinking alcohol and smoking cigarettes 40 years ago. His surrogate decision maker would be his Glo. Smoking packs per day: 2 Smoking cigarettes per day: 40.0 Years smoked: 30 Smoking pack-years: 60.00 Smoking status: Former smoker Tobacco type: cigarettes Alcohol intake: never Substance use: never Substance use type: does not use Gender identity (if verbalized by the patient): Male Spiritual care concerns: No Agree to blood products: Yes Meds Home Medications and Allergies Home
[2019-09-16] VITALS (24 sets, daily range): BP systolic 102–182; BP diastolic 72–109; PULSE 75–110; RESP 16–20; TEMP 35.9–36.7; O2SAT 88–100
[2019-09-16] MEDS: LEVALBUTEROL NEB 1.25 MG/3 ML 0.63 MG INHALATION ×4 (03:52→21:43)
[2019-09-16] MEDS: IPRATROPIUM BR 0.02% INH SOLN 0.5 MG/2.5 ML VIAL INHALATION ×4 (03:53→21:43)
[2019-09-16] MEDS: hydrALAZINE HCL 20 MG/ML VIAL 10 MG IV PUSH (05:34)
[2019-09-16] MEDS: ENOXAPARIN 100 MG/ML SYRINGE 85 MG SUB-Q (05:40)
--- NOTE | 2019-09-16 05:48 | PC.NURSE ---
Pt. refused Tamiflu, is aware
[2019-09-16 05:59] LABS: Hematocrit 31.7 % (42.0-52.0); Hemoglobin 9.7 g/dL (14.0-18.0)
[2019-09-16 06:19] LABS: Blood Urea Nitrogen 32 mg/dL (9-20); Calcium 7.7 mg/dL (8.4-10.2); Carbon Dioxide 32 mmol/L (22-30); Chloride 102 mmol/L (98-107); Estimated CRCL calculation 64 ml/min; Estimated Glomerular Filt Rate > 60; Glucose 119 mg/dL (75-110); Potassium 3.4 mmol/L (3.4-5.0); Sodium 138 mmol/L (137-145)
--- NOTE | 2019-09-16 09:02 | WPDGIPROGNO ---
Progress Note: A&P Additional Plan Patient reports continued shortness of breath. He denies abdominal pain. He denies diarrhea. He denies any blood loss. Physical exam reveals patient to be mildly tachypneic. Somewhat short of breath at rest. Nasal oxygen is in place. HEENT exam reveals him to be anicteric. Lungs reveal a few rhonchi. Heart is without murmur. Abdominal exam is obese. Bowel sounds are present soft and nontender. Laboratory work reveals CBC white count 7.6, hemoglobin 9.7, hematocrit 31.7, MCV 93. Impression 1. Ulcerative colitis. Clinically stable. Patient currently on steroids as treatment for his respiratory problem. Would advise tapering off this as soon as feasible. Hopefully Imuran can be restarted. Which would and make it easier to taper steroids. Lialda, mesalamine will continue. 2. C difficile toxin positive diarrhea. Patient denies diarrhea at the present time. He is completing course of Dificid. This appears to be resolved. 3. Pneumonia. Patient continues to have respiratory distress. 4. Influenza B. This appears to be etiology for pneumonia. Pulmonary service is following. Treatment further direction. If Imuran needs to be held this is okay as he currently has no symptoms from his ulcerative colitis. 5. Cirrhosis. Currently no clinical evidence of this. 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 Continue supportive care as needed. Subjective Date/time seen: 09/16/19 09:02 Objective Data Vital Signs Vital Signs: Vital Signs - 24 hr 09/15/19 09:08 09/15/19 09:10 09/15/19 09:20 Temperature Pulse Rate 92 95 Respiratory Rate 18 18 Blood Pressure Pulse Oximetry 96 09/15/19 09:45 09/15/19 12:00 09/15/19 14:00 Temperature 37.2 C Pulse Rate 74 82 Respiratory Rate 20 Blood Pressure 149/78 H Pulse Oximetry 97 96 09/15/19 15:28 09/15/19 15:33 09/15/19 16:00 Temperature Pulse Rate 84 90 79 Respiratory Rate 20 20 Blood Pressure Pulse Oximetry 09/15/19 20:00 09/15/19 21:41 09/15/19 22:45 Temperature 35.9 C L Pulse Rate 77 69 79 Respiratory Rate 16 20 Blood Pressure 142/98 H 157/94 H Pulse Oximetry 95 09/15/19 22:46 09/15/19 22:55 09/15/19 23:08 Temperature Pulse Rate 81 78 Respiratory Rate 20 Blood Pressure Pulse Oximetry 96 96 09/15/19 23:43 09/15/19 23:44 09/16/19 00:00 Temperature Pulse Rate 75 Respiratory Rate Blood Pressure 153/97 H 148/74 H Pulse Oximetry 09/16/19 03:53 09/16/19 03:59 09/16/19 04:00 Temperature Pulse Rate 85 82 82 Respiratory Rate 20 20 Blood Pressure Pulse Oximetry 09/16/19 06:05 Temperature 35.9 C L Pulse Rate 78 Respiratory Rate 16 Blood Pressure 182/109 H Pulse Oximetry 94 Intake/Output Intake/Output: Intake & Output 09/13/19 09/14/19 09/15/19 09/16/19 23:59 23:59 23:59 23:59 Intake Total 1770 2020 6120 200 Output Total 998 273 7560 200 Balance 1120 1270 5020 0 Meds/Results Medications: Active Medications Generic Name Dose Route Start Last Admin Trade Name Freq PRN Reason Stop Dose Admin Acetaminophen 650 mg 09/05/19 14:21 Tylenol Tablet PO Q4H PRN Mild Pain (1-3) or Fever Aspirin 81 mg 09/06/19 08:00 09/15/19 09:06 Aspirin Chewable PO 81 mg DAILY@0800 [facility] Administration Cyanocobalamin 1,000 mcg 09/06/19 09:00 09/15/19 09:06 Vitamin B-12 Tab PO 1,000 mcg DAILY [facility] Administration Dornase Stephan 2.5 mg 09/07/19 20:00 09/15/19 09:07 Pulmozyme INHALATION 2.5 mg Q12HRT AL Administration Enoxaparin Sodium 85 mg 09/14/19 18:00 09/16/19 05:40 Lovenox SUB-Q 85 mg Q12H AL Administration Famotidine 20 mg 09/13/19 09:00 09/15/19 21:04 Pepcid PO 20 mg Q12HR AL Administration Fidaxomicin 200 mg 09/08/19 21:00 09/15/19 21:04 Dificid PO 200 mg Q12HR AL Administration Folic Acid 1 mg 09/06/19 09:00 09/15/19 09:06 Folic Acid PO
[2019-09-16] MEDS: FAMOTIDINE 20 MG TABLET PO ×2 (09:20→20:51)
[2019-09-16] MEDS: FIDAXOMICIN 200 MG TABLET PO ×2 (09:20→20:51)
[2019-09-16] MEDS: LOSARTAN POTASSIUM 50 MG TABLET PO (09:20)
[2019-09-16] MEDS: ASPIRIN 81 MG CHEWABLE TABLET PO (09:20)
[2019-09-16] MEDS: POLYSACCHARIDE IRON COMPLEX 150 MG CAPSULE 450 MG PO (09:20)
[2019-09-16] MEDS: CYANOCOBALAMIN 1,000 MCG TABLET 1000 MCG PO (09:21)
[2019-09-16] MEDS: predniSONE 10 MG TABLET 30 MG PO (09:21)
[2019-09-16] MEDS: GABAPENTIN 300 MG CAPSULE 600 MG PO (09:21)
[2019-09-16] MEDS: FOLIC ACID 1 MG TABLET PO (09:21)
[2019-09-16] MEDS: DORNASE ALFA INH SOLN 1 MG/ML 2.5 ML AMP 2.5 MG INHALATION ×3 (10:08→21:44)
--- NOTE | 2019-09-16 11:50 | WPDNEUROPN ---
Progress Note: A&P Assessment and Plan (1) Pulmonary embolism: Code(s): I26.99 - Other pulmonary embolism without acute cor pulmonale Status: Acute (2) Orthostatic hypotension: Code(s): I95.1 - Orthostatic hypotension Status: Acute (3) Hypotension, iatrogenic: Code(s): I95.89 - Other hypotension Status: Acute (4) Sleep attack: Code(s): G47.419 - Narcolepsy without cataplexy Status: Acute (5) Viral pneumonia: Code(s): J12.9 - Viral pneumonia, unspecified Status: Acute (6) Unresponsive episode: Code(s): R41.89 - Other symptoms and signs involving cognitive functions and awareness Status: Resolved (7) Stool culture positive for Clostridium difficile: Code(s): R19.5 - Other fecal abnormalities Status: Acute (8) DVT prophylaxis: Code(s): Z29.9 - Encounter for prophylactic measures, unspecified Status: Acute (9) Altered mental status: Qualifiers: Altered mental status type: delirium Qualified Code(s): R41.0 - Disorientation, unspecified Code(s): R41.82 - Altered mental status, unspecified Status: Resolved (10) Acute respiratory failure: Qualifiers: Respiratory failure complication: hypoxia Qualified Code(s): J96.01 - Acute respiratory failure with hypoxia Code(s): J96.00 - Acute respiratory failure, unspecified whether with hypoxia or hypercapnia Status: Acute (11) Pneumonia: Qualifiers: Pneumonia type: due to unspecified organism Laterality: unspecified laterality Lung location: unspecified part of lung Qualified Code(s): J18.9 - Pneumonia, unspecified organism Code(s): J18.9 - Pneumonia, unspecified organism Status: Acute (12) Umbilical hernia: Code(s): K42.9 - Umbilical hernia without obstruction or gangrene Status: Acute (13) Peripheral neuropathy: Qualifiers: Peripheral neuropathy type: polyneuropathy, unspecified Qualified Code(s): G62.9 - Polyneuropathy, unspecified Code(s): G62.9 - Polyneuropathy, unspecified Status: Chronic (14) Cirrhosis: Qualifiers: Hepatic cirrhosis type: unspecified hepatic cirrhosis Ascites presence: without ascites Qualified Code(s): K74.60 - Unspecified cirrhosis of liver Code(s): K74.60 - Unspecified cirrhosis of liver Status: Chronic (15) Hypertension: Qualifiers: Hypertension type: essential hypertension Qualified Code(s): I10 - Essential (primary) hypertension Code(s): I10 - Essential (primary) hypertension Status: Chronic (16) Fluid overload: Code(s): E87.70 - Fluid overload, unspecified Status: Acute (17) Influenza B: Code(s): J10.1 - Influenza due to other identified influenza virus with other respiratory manifestations Status: Acute (18) Hypoxia: Code(s): R09.02 - Hypoxemia Status: Acute (19) Acute bronchospasm: Code(s): J98.01 - Acute bronchospasm Status: Acute (20) Ulcerative colitis: Qualifiers: Ulcerative colitis location: unspecified ulcerative colitis location Digestive disease complication type: without complication Qualified Code(s): K51.90 - Ulcerative colitis, unspecified, without complications Code(s): K51.90 - Ulcerative colitis, unspecified, without complications Status: Chronic Additional Plan stable Review of Systems Review of Systems: All systems reviewed & are unremarkable except as noted in HPI and below Exam Const: General: cooperative and no acute distress Eyes: General: appearance normal, both eyes and all related structures Alignment and Position: alignment normal Eyelids: eyelids normal Sclera: sclerae normal Pupils: Equal, round and reactive pupils present EOM: EOMs intact bilaterally Neck: Neck: full ROM Resp: Auscultation: clear to auscultation bilaterally Cardio: Rate: regular r
--- NOTE | 2019-09-16 11:56 | PM.IMPN ---
Progress Note: A&P Assessment and Plan (1) Orthostatic hypotension: Code(s): I95.1 - Orthostatic hypotension Status: Acute Assessment and Plan: -----Last vitals were laying 157/93, sitting 115/72, standing 131/107. We will continue checking this Q shift. He was a little symptomatic with these readings. Continue MATT hose and IV fluids have been stopped. Yesterday the pts blood pressure while supine was 169 systolic and dropped to 86 when they stood him up. I have spoken with pulmonology who recommends considering switching to hydrocortisone 20 mg b.i.d. and I believe is going to talk to Dr. Hewitt about his thoughts. The patient and family states that he has been on steroids for 12 years. Echo looks okay. Coreg stopped. When standing the pt did have some tachycardia and pulse ox went down to 88. May need o2 with exertion. we will see how he does in the chair and with PT. PT has to re-evaluate him today. (2) Pulmonary embolism: Code(s): I26.99 - Other pulmonary embolism without acute cor pulmonale Status: Acute Assessment and Plan: -----noted on CTA. Could be contributing to hypoxia but likely not causing his transient decreased level of awareness. Continue Lovenox at this time and I have care coordination checking on eliquis. If he can afford this, will start this tonight. If not, may need to do warfarin. DVT also noted. Unsure if was present on admission or not. (3) Unresponsive episode: Code(s): R41.89 - Other symptoms and signs involving cognitive functions and awareness Status: Resolved Assessment and Plan: -----likely due to orthostatic hypotension. MRI of the brain is negative for acute stroke. CTA does show a blood clot but not big enough to be causing his decreased level of awareness. See above (4) Pneumonia: Qualifiers: Pneumonia type: due to unspecified organism Laterality: unspecified laterality Lung location: unspecified part of lung Qualified Code(s): J18.9 - Pneumonia, unspecified organism Code(s): J18.9 - Pneumonia, unspecified organism Status: Acute Assessment and Plan: -----Influenza B positive with mild airspace opacities likely pneumonia. Completed antibiotic course but now on doxycycline since he is not improving. He is immunosuppressed and the die sinker recommended Tamiflu x5 days but pt refused so this was stopped. Continue bronchodilator therapy with duo nebs, pulmozyme and PEP therapy. Patient is on 30 mg of prednisone which is his home dose from his taper. Blood cultures negative. Pneumococcal and legionella antigens negative. New sputum sample has oral contamination but nurse says he is coughing more up. Will try again. (5) Influenza B: Code(s): J10.1 - Influenza due to other identified influenza virus with other respiratory manifestations Status: Acute Assessment and Plan: See above. (6) Acute respiratory failure: Qualifiers: Respiratory failure complication: hypoxia Qualified Code(s): J96.01 - Acute respiratory failure with hypoxia Code(s): J96.00 - Acute respiratory failure, unspecified whether with hypoxia or hypercapnia Status: Acute Assessment and Plan: -----2/2 to above. Resolved (7) Altered mental status: Qualifiers: Altered mental status type: delirium Qualified Code(s): R41.0 - Disorientation, unspecified Code(s): R41.82 - Altered mental status, unspecified Status: Resolved Assessment and Plan: -----see above (8) Ulcerative colitis: Qualifiers: Ulcerative colitis location: unspecified ulcerative colitis location Digestive disease complication type: without complication Qualified Code(s): K51.90 - Ulcerative colitis, unspecified, without complications Code(s): K51.90 - Ulcerative colitis, unspecified, without complications Status: Chronic
--- NOTE | 2019-09-16 13:21 | PM.PNPUL ---
Progress Note: A&P Assessment and Plan (1) Pulmonary embolism: Code(s): I26.99 - Other pulmonary embolism without acute cor pulmonale Status: Acute Assessment and Plan: This is a provoked pulmonary embolism and I would suggest treating for no longer than three months with Katie. A longer duration may increase his risk of GI bleeding given his ongoing pancolitis. (2) Orthostatic hypotension: Code(s): I95.1 - Orthostatic hypotension Status: Acute Assessment and Plan: - switched from prednisone to hydrocortisone 20 mg bid starting tonight - hopefully this will stabilize BP (3) Hypotension, iatrogenic: Code(s): I95.89 - Other hypotension Status: Acute (4) Viral pneumonia: Code(s): J12.9 - Viral pneumonia, unspecified Status: Acute Assessment and Plan: - Not improving - I offered to do a diagnostic bronchoscopy with BAL and washings once his BP is stable but he elected to hold off for now. - Cannot rule out superimposed bacterial pneumonia given his immune suppression but reluctant to start antibiotics without culture. - Sputum culture has been rejected due to poor quality. I've ordered for another Sputum induction to be done today. Time Spent With Patient Time with patient: 15 - 25 minutes Subjective Date/time seen: 09/16/19 13:21 Interval history: Awake and alert. Still very weak. Still having AM hyotension. Spoke to Dr. Hewitt this morning and he agreed with switching to hydrocortisone to minimize immune suppression while possible stabilizing BP. Sputum culture had two much saliva and was rejected. I've ordered another Sputum induction to be done by RT. I talked to him about bronchoscopy and he said he would like to hold off for now. I also viewed his pulmonary embolism on CT chest. It involves the segmental and subsegmental right pulmonary artery mostly in the lower lobe. It is quite extensive and he would need anticoagulation for three months. Longer than this would increase his risk of GI bleeding given his history of pancolitis. Review of Systems Review of Systems: All systems reviewed & are unremarkable except as noted in HPI and below Exam Narrative: Exam Narrative: Diffuse weakness Const: General: comfortable and no acute distress HENMT: Mouth: Yes moist mucous membranes Neck: Neck: supple and no JVD Resp: Auscultation: rales and rhonchi Cardio: Rate: regular rate Rhythm: regular rhythm Heart sounds: no murmurs and no rubs GI: Auscultation: normal bowel sounds Extrem: General: normal to inspection and no pedal edema Psych: Mental Status: mental status grossly normal Objective Data Vital Signs Vital Signs: Vital Signs - 24 hr 09/15/19 14:00 09/15/19 15:28 09/15/19 15:33 Temperature 37.2 C Pulse Rate 82 84 90 Respiratory Rate 20 20 20 Blood Pressure 149/78 H Pulse Oximetry 96 09/15/19 16:00 09/15/19 20:00 09/15/19 21:41 Temperature 35.9 C L Pulse Rate 79 77 69 Respiratory Rate 16 Blood Pressure 142/98 H 157/94 H Pulse Oximetry 95 09/15/19 22:45 09/15/19 22:46 09/15/19 22:55 Temperature Pulse Rate 79 81 Respiratory Rate 20 20 Blood Pressure Pulse Oximetry 96 09/15/19 23:08 09/15/19 23:43 09/15/19 23:44 Temperature Pulse Rate 78 Respiratory Rate Blood Pressure 153/97 H 148/74 H Pulse Oximetry 96 09/16/19 00:00 09/16/19 03:53 09/16/19 03:59 Temperature Pulse Rate 75 85 82 Respiratory Rate 20 20 Blood Pressure Pulse Oximetry 09/16/19 04:00 09/16/19 06:05 09/16/19 08:00 Temperature 35.9 C L Pulse Rate 82 78 82 Respiratory Rate 16 Blood Pressure 182/109 H Pulse Oximetry 94 09/16/19 09:15 09/16/19 10:00 09/16/19 10:10 Temperature Pulse Rate 81 83 88 Respiratory Rate 20 20 Blood Pressure 148/77 H Pulse Oximetry 96 09/16/19 10:30 09/16/19 10:31 09/16/19 10:32 Temperature 36.1 C L Pulse Rate 78 80 110 H Respiratory Ra
--- NOTE | 2019-09-16 17:50 | PC.NURSE ---
On 09/16/19, the still photographer Iglesia Kemp, provided care and completed [facility] documentation on this patient. I have reviewed the student's documentation and agree with the findings.
[2019-09-16] MEDS: HYDROCORTISONE 10 MG TABLET 20 MG PO (20:51)
[2019-09-16] MEDS: APIXABAN 5 MG TABLET 10 MG PO (20:52)
[2019-09-17] VITALS (21 sets, daily range): BP systolic 115–148; BP diastolic 69–110; PULSE 68–110; RESP 18–24; TEMP 36.6–37.1; O2SAT 93–98
[2019-09-17] MEDS: LEVALBUTEROL NEB 1.25 MG/3 ML 0.63 MG INHALATION ×4 (03:48→21:15)
[2019-09-17] MEDS: IPRATROPIUM BR 0.02% INH SOLN 0.5 MG/2.5 ML VIAL INHALATION ×4 (03:48→21:14)
[2019-09-17] MEDS: SODIUM CHLOR 3% 15 ML NEB (RESPIRATORY THERAPY) 6 ML INHALATION (04:57)
--- NOTE | 2019-09-17 05:07 | PCRCNOTE ---
pt was unable to provide a sputum sample
[2019-09-17] MEDS: HYDROCORTISONE 10 MG TABLET 20 MG PO ×2 (08:18→21:30)
[2019-09-17] MEDS: ASPIRIN 81 MG CHEWABLE TABLET PO (08:18)
[2019-09-17] MEDS: GABAPENTIN 300 MG CAPSULE 600 MG PO (08:18)
[2019-09-17] MEDS: CYANOCOBALAMIN 1,000 MCG TABLET 1000 MCG PO (08:18)
[2019-09-17] MEDS: FAMOTIDINE 20 MG TABLET PO ×2 (08:18→21:30)
[2019-09-17] MEDS: LOSARTAN POTASSIUM 50 MG TABLET PO (08:18)
[2019-09-17] MEDS: FIDAXOMICIN 200 MG TABLET PO (08:18)
[2019-09-17] MEDS: APIXABAN 5 MG TABLET 10 MG PO ×2 (08:18→21:30)
[2019-09-17] MEDS: FOLIC ACID 1 MG TABLET PO (08:18)
[2019-09-17] MEDS: DORNASE ALFA INH SOLN 1 MG/ML 2.5 ML AMP 2.5 MG INHALATION ×2 (09:09→21:15)
--- NOTE | 2019-09-17 09:30 | PM.PNPUL ---
Progress Note: A&P Assessment and Plan (1) Pulmonary embolism: Code(s): I26.99 - Other pulmonary embolism without acute cor pulmonale Status: Acute Assessment and Plan: This is a provoked pulmonary embolism and I would suggest treating for no longer than three months with Katie. A longer duration may increase his risk of GI bleeding given his ongoing pancolitis. (2) Orthostatic hypotension: Code(s): I95.1 - Orthostatic hypotension Status: Acute Assessment and Plan: - switched from prednisone to hydrocortisone 20 mg bid starting tonight - hopefully this will stabilize BP (3) Hypotension, iatrogenic: Code(s): I95.89 - Other hypotension Status: Acute (4) Viral pneumonia: Code(s): J12.9 - Viral pneumonia, unspecified Status: Acute Assessment and Plan: - Not improving - I offered to do a diagnostic bronchoscopy with BAL and washings once his BP is stable but he elected to hold off for now. - Cannot rule out superimposed bacterial pneumonia given his immune suppression but reluctant to start antibiotics without culture. - Sputum culture has been rejected due to poor quality. I've ordered for another Sputum induction to be done today. Time Spent With Patient Time with patient: 15 - 25 minutes Subjective Date/time seen: 09/17/19 09:30 Interval history: Still very weak. Hard to guage improvement. BP seems to have stabilized. Wants to hold off on Bronchoscopy for now. Refused Tamuflu due to confusion but says he received about four days of the medication. Review of Systems Review of Systems: All systems reviewed & are unremarkable except as noted in HPI and below Exam Narrative: Exam Narrative: Diffuse weakness Const: General: comfortable and no acute distress HENMT: Mouth: Yes moist mucous membranes Neck: Neck: supple and no JVD Resp: Auscultation: rales and rhonchi Cardio: Rate: regular rate Rhythm: regular rhythm Heart sounds: no murmurs and no rubs GI: Auscultation: normal bowel sounds Extrem: General: normal to inspection and no pedal edema Psych: Mental Status: mental status grossly normal Objective Data Vital Signs Vital Signs: Vital Signs - 24 hr 09/17/19 14:00 09/17/19 15:20 09/17/19 15:42 Temperature 36.6 C Pulse Rate 84 80 110 H Respiratory Rate 20 20 20 Blood Pressure 115/69 Pulse Oximetry 96 09/17/19 16:00 09/17/19 20:00 09/17/19 21:15 Temperature Pulse Rate 86 88 68 Respiratory Rate 20 Blood Pressure Pulse Oximetry 09/17/19 21:19 09/17/19 21:24 09/17/19 22:00 Temperature 36.6 C Pulse Rate 74 68 Respiratory Rate 20 22 H Blood Pressure 135/69 Pulse Oximetry 93 93 09/18/19 02:46 09/18/19 02:52 09/18/19 04:00 Temperature Pulse Rate 76 74 75 Respiratory Rate 20 20 Blood Pressure Pulse Oximetry 09/18/19 05:36 09/18/19 06:00 09/18/19 06:49 Temperature 36.2 C L Pulse Rate 73 90 Respiratory Rate 20 22 H Blood Pressure 142/78 H 103/70 Pulse Oximetry 09/18/19 08:00 09/18/19 08:56 09/18/19 09:10 Temperature Pulse Rate 82 79 75 Respiratory Rate 20 20 Blood Pressure Pulse Oximetry Intake/Output Intake/Output: Intake & Output 09/15/19 09/16/19 09/17/19 09/18/19 23:59 23:59 23:59 23:59 Intake Total 6120 2000 1840 340 Output Total 1100 1200 100 100 Balance 5020 800 1740 240 Meds/Results Medications: Active Medications Generic Name Dose Route Start Last Admin Trade Name Freq PRN Reason Stop Dose Admin Acetaminophen 650 mg 09/05/19 14:21 Tylenol Tablet PO Q4H PRN Mild Pain (1-3) or Fever Apixaban 10 mg 09/16/19 21:00 09/18/19 08:25 Eliquis PO 09/23/19 09:01 10 mg Q12HR AL Administration Aspirin 81 mg 09/06/19 08:00 09/18/19 08:25 Aspirin Chewable PO 81 mg DAILY@0800 [facility] Administration Cyanocobalamin 1,000 mcg 09/06/19 09:00 09/18/19 08:26 Vitamin B-12 Tab PO 1,000 mcg
--- NOTE | 2019-09-17 11:27 | WPDGIPROGNO ---
Progress Note: A&P Additional Plan Patient alert this morning. Perhaps less short of breath. No longer on supplemental oxygen. He denies abdominal pain. No diarrhea reported. Physical exam reveals him to be alert. He is anicteric. Lungs reveal a few rhonchi. Heart without murmur. Abdomen bowel sounds are present soft and nontender. Impression 1. Ulcerative colitis. Current we asymptomatic on steroids. Patient now on hydrocortisone. Will continue to hold immunosuppressive so until his respiratory infection clears. Ultimately would like to start other meds so that steroids can be decreased. At the present advise decreasing steroids as tolerated. 2. Pulmonary embolus. 3. Influenza B. 4. Pneumonia. Pulmonary services following actively. Subjective Date/time seen: 09/17/19 11:27 Objective Data Vital Signs Vital Signs: Vital Signs - 24 hr 09/16/19 12:00 09/16/19 13:35 09/16/19 13:45 Temperature Pulse Rate 78 85 88 Respiratory Rate 20 20 Blood Pressure Pulse Oximetry 09/16/19 14:00 09/16/19 16:00 09/16/19 20:00 Temperature 36.4 C Pulse Rate 82 84 79 Respiratory Rate 18 Blood Pressure 153/80 H Pulse Oximetry 95 09/16/19 21:44 09/16/19 21:47 09/16/19 22:00 Temperature 36.6 C Pulse Rate 83 82 Respiratory Rate 20 16 Blood Pressure 128/74 Pulse Oximetry 91 94 09/16/19 22:10 09/16/19 22:32 09/16/19 22:33 Temperature 36.7 C 36.7 C Pulse Rate 80 84 83 Respiratory Rate 20 18 18 Blood Pressure 112/72 102/75 Pulse Oximetry 96 96 09/17/19 00:00 09/17/19 03:50 09/17/19 03:57 Temperature Pulse Rate 77 83 85 Respiratory Rate 20 20 Blood Pressure Pulse Oximetry 09/17/19 04:00 09/17/19 06:00 09/17/19 09:11 Temperature 37.1 C Pulse Rate 83 83 83 Respiratory Rate 18 20 Blood Pressure 148/94 H Pulse Oximetry 96 94 09/17/19 09:24 09/17/19 10:00 09/17/19 10:08 Temperature 36.7 C 36.7 C Pulse Rate 83 78 77 Respiratory Rate 20 20 24 H Blood Pressure 146/78 H 145/80 H Pulse Oximetry 98 95 09/17/19 10:09 Temperature 36.7 C Pulse Rate 88 Respiratory Rate 24 H Blood Pressure 142/110 H Pulse Oximetry 97 Intake/Output Intake/Output: Intake & Output 09/14/19 09/15/19 09/16/19 09/17/19 23:59 23:59 23:59 23:59 Intake Total 2020 6120 2000 540 Output Total 750 1100 1200 100 Balance 1270 5020 800 440 Meds/Results Medications: Active Medications Generic Name Dose Route Start Last Admin Trade Name Freq PRN Reason Stop Dose Admin Acetaminophen 650 mg 09/05/19 14:21 Tylenol Tablet PO Q4H PRN Mild Pain (1-3) or Fever Apixaban 10 mg 09/16/19 21:00 09/17/19 08:18 Eliquis PO 09/23/19 09:01 10 mg Q12HR AL Administration Aspirin 81 mg 09/06/19 08:00 09/17/19 08:18 Aspirin Chewable PO 81 mg DAILY@0800 [facility] Administration Cyanocobalamin 1,000 mcg 09/06/19 09:00 09/17/19 08:18 Vitamin B-12 Tab PO 1,000 mcg DAILY AL Administration Dornase Stepahn 2.5 mg 09/07/19 20:00 09/17/19 09:09 Pulmozyme INHALATION 2.5 mg Q12HRT AL Administration Famotidine 20 mg 09/13/19 09:00 09/17/19 08:18 Pepcid PO 20 mg Q12HR AL Administration Fidaxomicin 200 mg 09/08/19 21:00 09/17/19 08:18 Dificid PO 200 mg Q12HR AL Administration Folic Acid 1 mg 09/06/19 09:00 09/17/19 08:18 Folic Acid PO 1 mg DAILY AL Administration Gabapentin 600 mg 09/06/19 09:00 09/17/19 08:18 Neurontin PO 600 mg DAILY AL Administration Hydrocortisone 20 mg 09/16/19 21:00 09/17/19 08:18 Cortef Tablet PO 20 mg Q12H AL Administration Doxycycline Hyclate 100 mg/ 100 mls @ 100 mls/hr 09/14/19 16:00 09/17/19 06:33 Dextrose IVPB Infused Q12H AL Infusion Ipratropium [place] 0.5 mg 09/05/19 20:00 09/17/19 09:09 Atrovent Neb INHALATION 0.5 mg Q6HRT AL Administration Levalbuterol HCl 0.63 mg 09/07/19 02:00 09/17/19 09:08 Xopenex 1.25 Mg/3
--- NOTE | 2019-09-17 13:17 | PCPTNOTE ---
The patient treatment was not able to be completed on [09/13-09/17] due to [needs reevaluation and having to accommodate patient priority status]. Will plan to re-evalaute and update plan of care.
--- NOTE | 2019-09-17 13:19 | PCOTNOTE ---
The patient treatment was not able to be completed on 09/16/2019 due to adherence to patient prioritization policy. Patient reburies re-evaluation, will plan to continue treatment per plan of care as deemed appropriate.
--- NOTE | 2019-09-17 13:59 | WPDNEUROPN ---
Progress Note: A&P Additional Plan stable ,slowly improving Review of Systems Review of Systems: All systems reviewed & are unremarkable except as noted in HPI and below Exam Const: General: cooperative, comfortable and no acute distress Orientation/consciousness: oriented to person and oriented to place Eyes: General: appearance normal, both eyes and all related structures Resp: Effort & Inspection: normal respiratory effort and able to speak in complete sentences Cardio: Rate: regular rate Rhythm: regular rhythm GI: Auscultation: normal bowel sounds Neuro: General: oriented to person and oriented to place Cranial nerves: Yes CN's II-XII intact bilaterally, Yes Equal, round and reactive pupils present, Yes Bilaterally intact EOM present, Yes Nystagmus not present, Yes Normal facial strength present, Yes Midline tongue present, Yes Normal gag reflex present, Yes Symmetric palate elevation present and Yes Ability to bilaterally elevate shoulders present Speech: normal speech (low volume) Gait exam (Neuro): Unable to assess gait Motor exam (neuro): 5/5 motor strength present throughout (decreased) Deep tendon reflexes (DTR's): Right triceps reflex intensity grade: 1+, Left triceps reflex intensity grade: 1+, Rt Biceps (C5, C6): 1+, Left biceps reflex intensity grade: 1+, Right brachioradialis reflex intensity grade: 1+, Left brachioradialis reflex intensity grade: 1+, Right patellar reflex intensity grade: 1+, Left patellar reflex intensity grade: 1+, Right ankle reflex intensity grade: 1+ and Left ankle reflex intensity grade: 1+ Plantar Reflex Responses: downgoing: bilateral Psych: Appearance: grossly normal Objective Data Vital Signs Vital Signs: Vital Signs - 24 hr 09/16/19 14:00 09/16/19 16:00 09/16/19 20:00 Temperature 36.4 C Pulse Rate 82 84 79 Respiratory Rate 18 Blood Pressure 153/80 H Pulse Oximetry 95 09/16/19 21:44 09/16/19 21:47 09/16/19 22:00 Temperature 36.6 C Pulse Rate 83 82 Respiratory Rate 20 16 Blood Pressure 128/74 Pulse Oximetry 91 94 09/16/19 22:10 09/16/19 22:32 09/16/19 22:33 Temperature 36.7 C 36.7 C Pulse Rate 80 84 83 Respiratory Rate 20 18 18 Blood Pressure 112/72 102/75 Pulse Oximetry 96 96 09/17/19 00:00 09/17/19 03:50 09/17/19 03:57 Temperature Pulse Rate 77 83 85 Respiratory Rate 20 20 Blood Pressure Pulse Oximetry 09/17/19 04:00 09/17/19 06:00 09/17/19 08:00 Temperature 37.1 C Pulse Rate 83 83 83 Respiratory Rate 18 Blood Pressure 148/94 H Pulse Oximetry 96 09/17/19 09:11 09/17/19 09:24 09/17/19 10:00 Temperature 36.7 C Pulse Rate 83 83 78 Respiratory Rate 20 20 20 Blood Pressure 146/78 H Pulse Oximetry 94 98 09/17/19 10:08 09/17/19 10:09 09/17/19 12:00 Temperature 36.7 C 36.7 C Pulse Rate 77 88 77 Respiratory Rate 24 H 24 H Blood Pressure 145/80 H 142/110 H Pulse Oximetry 95 97 Intake/Output Intake/Output: Intake & Output 09/14/19 09/15/19 09/16/19 09/17/19 23:59 23:59 23:59 23:59 Intake Total 2019 6120 1999 1020 Output Total 750 1100 1200 100 Balance 1270 5020 800 920 Meds/Results Medications: Active Medications Generic Name Dose Route Start Last Admin Trade Name Freq PRN Reason Stop Dose Admin Acetaminophen 650 mg 09/05/19 14:21 Tylenol Tablet PO Q4H PRN Mild Pain (1-3) or Fever Apixaban 10 mg 09/16/19 21:00 09/17/19 08:18 Eliquis PO 09/23/19 09:01 10 mg Q12HR AL Administration Aspirin 81 mg 09/06/19 08:00 09/17/19 08:18 Aspirin Chewable PO 81 mg DAILY@0800 AL Administration Cyanocobalamin 1,000 mcg 09/06/19 09:00 09/17/19 08:18 Vitamin B-12 Tab PO 1,000 mcg DAILY AL Administration Dornase Stephan 2.5 mg 09/07/19 20:00 09/17/19 09:09 Pulmozyme INHALATION 2.5 mg Q12HRT AL Administration Famotidine 20 mg 09/13/19 09:00 09/17/19 08:18 Pepcid PO 20 mg Q12HR AL Administration Fidaxomicin 20
--- NOTE | 2019-09-17 14:04 | PM.IMPN ---
Progress Note: A&P Assessment and Plan (1) Orthostatic hypotension: Code(s): I95.1 - Orthostatic hypotension Status: Acute Assessment and Plan: -----orthostatic blood pressures appear to have improved. Today he was not orthostatic and he has not had dizziness with standing. He was up in the chair for a while but has not worked with PT yet. Unless he gets symptomatic, no need to continue checking these. The IV fluids have been stopped but he does seem fluid overloaded but I do not want to give a diuretics since his orthostasis just improved. Will monitor at this time. Continue hydrocortisone. echo looks okay. Coreg stopped. Waiting on PT evaluation since he had to be re-evaluated. (2) Pulmonary embolism: Code(s): I26.99 - Other pulmonary embolism without acute cor pulmonale Status: Acute Assessment and Plan: -----noted on CTA. Could be contributing to hypoxia but likely not causing his transient decreased level of awareness. Patient transition to [facility] and doing well. Suspect he will need 3 months of therapy. DVT also noted. Unsure if was present on admission or not. (3) Unresponsive episode: Code(s): R41.89 - Other symptoms and signs involving cognitive functions and awareness Status: Resolved Assessment and Plan: -----likely due to orthostatic hypotension. MRI of the brain is negative for acute stroke. CTA does show a blood clot but not big enough to be causing his decreased level of awareness. See above (4) Pneumonia: Qualifiers: Pneumonia type: due to unspecified organism Laterality: unspecified laterality Lung location: unspecified part of lung Qualified Code(s): J18.9 - Pneumonia, unspecified organism Code(s): J18.9 - Pneumonia, unspecified organism Status: Acute Assessment and Plan: -----Influenza B positive with mild airspace opacities likely pneumonia. Completed antibiotic course but now on doxycycline since he is not improving. He is immunosuppressed and the certified retinal angiographer recommended Tamiflu x5 days but pt refused so this was stopped. Continue bronchodilator therapy with duo nebs, pulmozyme and PEP therapy. May undergo a bronch next week. Blood cultures negative. Pneumococcal and legionella antigens negative. (5) Influenza B: Code(s): J10.1 - Influenza due to other identified influenza virus with other respiratory manifestations Status: Acute Assessment and Plan: See above. (6) Acute respiratory failure: Qualifiers: Respiratory failure complication: hypoxia Qualified Code(s): J96.01 - Acute respiratory failure with hypoxia Code(s): J96.00 - Acute respiratory failure, unspecified whether with hypoxia or hypercapnia Status: Acute Assessment and Plan: -----2/2 to above. Resolved (7) Altered mental status: Qualifiers: Altered mental status type: delirium Qualified Code(s): R41.0 - Disorientation, unspecified Code(s): R41.82 - Altered mental status, unspecified Status: Resolved Assessment and Plan: -----see above (8) Ulcerative colitis: Qualifiers: Ulcerative colitis location: unspecified ulcerative colitis location Digestive disease complication type: without complication Qualified Code(s): K51.90 - Ulcerative colitis, unspecified, without complications Code(s): K51.90 - Ulcerative colitis, unspecified, without complications Status: Chronic Assessment and Plan: ------Patient was currently undergoing a prednisone taper for UC flare-up about a month ago. His dose of mesalamine was recently increased which patient and report has caused him to sleep all day for weeks. Held mesalamine here for now. CT abdomen/pelvis with no acute intra-abdominal abnormalities. See above (9) Stool culture positive for Clostridium difficile: Code(s): R19.5 - Othe
--- NOTE | 2019-09-17 15:44 | PCOTNOTE ---
The patient treatment was not able to be completed on 09/17/2019 due to adherence to patient prioritization policy. Patient reburies re-evaluation, will plan to continue treatment per plan of care as deemed appropriate.
[2019-09-18] VITALS (15 sets, daily range): BP systolic 103–142; BP diastolic 59–79; PULSE 73–90; RESP 20–22; TEMP 36.2–36.4; O2SAT 90–95
[2019-09-18] MEDS: LEVALBUTEROL NEB 1.25 MG/3 ML 0.63 MG INHALATION ×4 (02:45→19:58)
[2019-09-18] MEDS: IPRATROPIUM BR 0.02% INH SOLN 0.5 MG/2.5 ML VIAL INHALATION ×4 (02:45→19:59)
[2019-09-18] MEDS: SODIUM CHLOR 3% 15 ML NEB (RESPIRATORY THERAPY) 6 ML INHALATION (05:34)
[2019-09-18 05:54] LABS: Hematocrit 34.9 % (42.0-52.0); Hemoglobin 9.9 g/dL (14.0-18.0); Mean Corpuscular HGB Conc 28.4 g/dl (32-36); Mean Corpuscular Hemoglobin 29.2 pg (26-34); Mean Corpuscular Volume 102.9 fl (80-100); Mean Platelet Volume 11.4 fl (7.4-10.4); Platelet Count Result 162 k/mm3 (150-375); Red Blood Count 3.39 M/mm3 (4.6-6.20); Red Cell Distribution Width 18.5 % (11.5-14.5); White Blood Count 8.9 K/mm3 (4.5-10.0)
[2019-09-18] MEDS: FAMOTIDINE 20 MG TABLET PO ×2 (08:25→20:22)
[2019-09-18] MEDS: HYDROCORTISONE 10 MG TABLET 20 MG PO ×2 (08:25→20:22)
[2019-09-18] MEDS: LOSARTAN POTASSIUM 50 MG TABLET PO (08:25)
[2019-09-18] MEDS: POLYSACCHARIDE IRON COMPLEX 150 MG CAPSULE 450 MG PO (08:25)
[2019-09-18] MEDS: GABAPENTIN 300 MG CAPSULE 600 MG PO (08:25)
[2019-09-18] MEDS: ASPIRIN 81 MG CHEWABLE TABLET PO (08:25)
[2019-09-18] MEDS: APIXABAN 5 MG TABLET 10 MG PO ×2 (08:25→20:22)
[2019-09-18] MEDS: CYANOCOBALAMIN 1,000 MCG TABLET 1000 MCG PO (08:26)
[2019-09-18] MEDS: FOLIC ACID 1 MG TABLET PO (08:26)
[2019-09-18] MEDS: DORNASE ALFA INH SOLN 1 MG/ML 2.5 ML AMP 2.5 MG INHALATION ×2 (08:53→19:59)
[2019-09-18 09:04] LABS: Blood Urea Nitrogen 33 mg/dL (9-20); Calcium 8.2 mg/dL (8.4-10.2); Carbon Dioxide 34 mmol/L (22-30); Chloride 99 mmol/L (98-107); Estimated CRCL calculation 53 ml/min; Estimated Glomerular Filt Rate > 60; Glucose 80 mg/dL (75-110); Potassium 3.7 mmol/L (3.4-5.0); Sodium 141 mmol/L (137-145)
--- NOTE | 2019-09-18 10:25 | PM.IMPN ---
Progress Note: A&P Assessment and Plan (1) Orthostatic hypotension: Code(s): I95.1 - Orthostatic hypotension Status: Acute Assessment and Plan: -----orthostatic blood pressures appear to have improved and have not been recheck since he is asymptomatic. I am going to try 20 mg of IV Lasix today due to his fluid overload in the upper extremities. Will monitor for orthostatic symptoms. He has still not worked with PT but has been getting the chair daily. Continue hydrocortisone. echo looks okay. Coreg stopped. Waiting on PT evaluation since he had to be re-evaluated. He has not been seen since 09/11 (2) Pulmonary embolism: Code(s): I26.99 - Other pulmonary embolism without acute cor pulmonale Status: Acute Assessment and Plan: -----noted on CTA. Could have be contributing to hypoxia but likely not causing his transient decreased level of awareness. Patient transition to [facility] and doing well. Suspect he will need 3 months of therapy. DVT also noted. Unsure if was present on admission or not. (3) Unresponsive episode: Code(s): R41.89 - Other symptoms and signs involving cognitive functions and awareness Status: Resolved Assessment and Plan: -----likely due to orthostatic hypotension. MRI of the brain is negative for acute stroke. CTA does show a blood clot but not big enough to be causing his decreased level of awareness. See above (4) Pneumonia: Qualifiers: Pneumonia type: due to unspecified organism Laterality: unspecified laterality Lung location: unspecified part of lung Qualified Code(s): J18.9 - Pneumonia, unspecified organism Code(s): J18.9 - Pneumonia, unspecified organism Status: Acute Assessment and Plan: -----Influenza B positive with mild airspace opacities likely pneumonia. Completed antibiotic course but now on doxycycline since he is not improving. He is immunosuppressed and the pot fluxer recommended Tamiflu x5 days but pt refused so this was stopped. Continue bronchodilator therapy with duo nebs, pulmozyme and PEP therapy. May undergo a bronch Friday. Blood cultures negative. Pneumococcal and legionella antigens negative. (5) Influenza B: Code(s): J10.1 - Influenza due to other identified influenza virus with other respiratory manifestations Status: Acute Assessment and Plan: See above. (6) Acute respiratory failure: Qualifiers: Respiratory failure complication: hypoxia Qualified Code(s): J96.01 - Acute respiratory failure with hypoxia Code(s): J96.00 - Acute respiratory failure, unspecified whether with hypoxia or hypercapnia Status: Acute Assessment and Plan: -----2/2 to above. Resolved (7) Altered mental status: Qualifiers: Altered mental status type: delirium Qualified Code(s): R41.0 - Disorientation, unspecified Code(s): R41.82 - Altered mental status, unspecified Status: Resolved Assessment and Plan: -----see above (8) Ulcerative colitis: Qualifiers: Ulcerative colitis location: unspecified ulcerative colitis location Digestive disease complication type: without complication Qualified Code(s): K51.90 - Ulcerative colitis, unspecified, without complications Code(s): K51.90 - Ulcerative colitis, unspecified, without complications Status: Chronic Assessment and Plan: ------Patient was currently undergoing a prednisone taper for UC flare-up about a month ago. His dose of mesalamine was recently increased which patient and report has caused him to sleep all day for weeks. Held mesalamine here for now. CT abdomen/pelvis with no acute intra-abdominal abnormalities. See above (9) Stool culture positive for Clostridium difficile: Code(s): R19.5 - Other fecal abnormalities Status: Acute Assessment and Plan: ------Not iso
[2019-09-18] MEDS: FUROSEMIDE INJ 40 MG/4 ML VIAL 20 MG IM (11:15)
--- NOTE | 2019-09-18 12:16 | PM.PNPUL ---
Progress Note: A&P Assessment and Plan (1) Pulmonary embolism: Code(s): I26.99 - Other pulmonary embolism without acute cor pulmonale Status: Acute Assessment and Plan: This is a provoked pulmonary embolism and I would suggest treating for no longer than three months with Katie. A longer duration may increase his risk of GI bleeding given his ongoing pancolitis. (2) Orthostatic hypotension: Code(s): I95.1 - Orthostatic hypotension Status: Acute Assessment and Plan: BP seems to have stablized after switching to hydrocortisone (3) Hypotension, iatrogenic: Code(s): I95.89 - Other hypotension Status: Acute (4) Viral pneumonia: Code(s): J12.9 - Viral pneumonia, unspecified Status: Acute Assessment and Plan: - Not improving - I offered to do a diagnostic bronchoscopy with BAL and washings once his BP is stable but he elected to hold off for now. - Cannot rule out superimposed bacterial pneumonia given his immune suppression but reluctant to start antibiotics without culture. - Sputum culture has been rejected due to poor quality. I've ordered for another Sputum induction to be done today. Time Spent With Patient Time with patient: 15 - 25 minutes Subjective Date/time seen: 09/18/19 12:16 Interval history: Pt is sleeping in bed. Hospitalist has said patient will agree to bronchoscopy if still needed. Dr. Martinez will assess on Friday to see if patient still needed. BP is stable on hydrocortisone Review of Systems Review of Systems: All systems reviewed & are unremarkable except as noted in HPI and below Exam Narrative: Exam Narrative: Diffuse weakness Const: General: comfortable and no acute distress HENMT: Mouth: Yes moist mucous membranes Neck: Neck: supple and no JVD Resp: Auscultation: rales and rhonchi Cardio: Rate: regular rate Rhythm: regular rhythm Heart sounds: no murmurs and no rubs GI: Auscultation: normal bowel sounds Extrem: General: normal to inspection and no pedal edema Psych: Mental Status: mental status grossly normal Objective Data Vital Signs Vital Signs: Vital Signs - 24 hr 09/17/19 14:00 09/17/19 15:20 09/17/19 15:42 Temperature 36.6 C Pulse Rate 84 80 110 H Respiratory Rate 20 20 20 Blood Pressure 115/69 Pulse Oximetry 96 09/17/19 16:00 09/17/19 20:00 09/17/19 21:15 Temperature Pulse Rate 86 88 68 Respiratory Rate 20 Blood Pressure Pulse Oximetry 09/17/19 21:19 09/17/19 21:24 09/17/19 22:00 Temperature 36.6 C Pulse Rate 74 68 Respiratory Rate 20 22 H Blood Pressure 135/69 Pulse Oximetry 93 93 09/18/19 02:46 09/18/19 02:52 09/18/19 04:00 Temperature Pulse Rate 76 74 75 Respiratory Rate 20 20 Blood Pressure Pulse Oximetry 09/18/19 05:36 09/18/19 06:00 09/18/19 06:49 Temperature 36.2 C L Pulse Rate 73 90 Respiratory Rate 20 22 H Blood Pressure 142/78 H 103/70 Pulse Oximetry 09/18/19 08:00 09/18/19 08:56 09/18/19 09:10 Temperature Pulse Rate 82 79 75 Respiratory Rate 20 20 Blood Pressure Pulse Oximetry Intake/Output Intake/Output: Intake & Output 09/15/19 09/16/19 09/17/19 09/18/19 23:59 23:59 23:59 23:59 Intake Total 6120 1999 1840 340 Output Total 1100 1200 100 100 Balance 5020 800 1740 240 Meds/Results Medications: Active Medications Generic Name Dose Route Start Last Admin Trade Name Desiree PRN Reason Stop Dose Admin Acetaminophen 650 mg 09/05/19 14:21 Tylenol Tablet PO Q4H PRN Mild Pain (1-3) or Fever Apixaban 10 mg 09/16/19 21:00 09/18/19 08:25 Eliquis PO 09/23/19 09:01 10 mg Q12HR AL Administration Aspirin 81 mg 09/06/19 08:00 09/18/19 08:25 Aspirin Chewable PO 81 mg DAILY@0800 [facility] Administration Cyanocobalamin 1,000 mcg 09/06/19 09:00 09/18/19 08:26 Vitamin B-12 Tab PO 1,000 mcg DAILY AL Administration Dornase Stephan 2.5 mg 09/07/19 20:
[2019-09-19] VITALS (14 sets, daily range): BP systolic 94–123; BP diastolic 58–87; PULSE 74–89; RESP 18–22; TEMP 36.2–36.6; O2SAT 90–97
[2019-09-19] MEDS: IPRATROPIUM BR 0.02% INH SOLN 0.5 MG/2.5 ML VIAL INHALATION ×4 (01:46→22:43)
[2019-09-19] MEDS: LEVALBUTEROL NEB 1.25 MG/3 ML 0.63 MG INHALATION ×4 (01:46→22:43)
[2019-09-19 05:41] LABS: Hematocrit 32.6 % (42.0-52.0); Hemoglobin 9.8 g/dL (14.0-18.0)
[2019-09-19 05:52] LABS: Blood Urea Nitrogen 36 mg/dL (9-20); Calcium 7.8 mg/dL (8.4-10.2); Carbon Dioxide 33 mmol/L (22-30); Chloride 100 mmol/L (98-107); Estimated CRCL calculation 58 ml/min; Estimated Glomerular Filt Rate > 60; Glucose 87 mg/dL (75-110); Potassium 3.7 mmol/L (3.4-5.0); Sodium 138 mmol/L (137-145)
[2019-09-19] MEDS: DORNASE ALFA INH SOLN 1 MG/ML 2.5 ML AMP 2.5 MG INHALATION ×2 (08:11→22:43)
[2019-09-19] MEDS: APIXABAN 5 MG TABLET 10 MG PO ×2 (08:43→20:51)
[2019-09-19] MEDS: ASPIRIN 81 MG CHEWABLE TABLET PO (08:43)
[2019-09-19] MEDS: FOLIC ACID 1 MG TABLET PO (08:43)
[2019-09-19] MEDS: GABAPENTIN 300 MG CAPSULE 600 MG PO (08:43)
[2019-09-19] MEDS: LOSARTAN POTASSIUM 50 MG TABLET PO (08:44)
[2019-09-19] MEDS: CYANOCOBALAMIN 1,000 MCG TABLET 1000 MCG PO (08:44)
[2019-09-19] MEDS: FAMOTIDINE 20 MG TABLET PO ×2 (08:44→20:49)
[2019-09-19] MEDS: HYDROCORTISONE 10 MG TABLET 20 MG PO ×2 (10:07→20:52)
[2019-09-19] MEDS: ACETAMINOPHEN 325 MG TABLET 650 MG PO (10:30)
--- NOTE | 2019-09-19 17:16 | PM.IMPN ---
Progress Note: A&P Assessment and Plan (1) Orthostatic hypotension: Code(s): I95.1 - Orthostatic hypotension Status: Acute Assessment and Plan: -----orthostatic blood pressures appear to have improved and have not been recheck since he is asymptomatic. 20mg of lasix given yesterday which helped but he got confused with this medication. Family thinks it may be the lasix that is making him confused since at the beining of his stay he was confused while taking it. Will monitor for orthostatic symptoms. Continue PT. Continue hydrocortisone. echo looks okay. Coreg stopped. (2) Pulmonary embolism: Code(s): I26.99 - Other pulmonary embolism without acute cor pulmonale Status: Acute Assessment and Plan: -----noted on CTA. Could have be contributing to hypoxia but likely not causing his transient decreased level of awareness. Patient transition to [facility] and doing well. Suspect he will need 3 months of therapy. DVT also noted. Unsure if was present on admission or not. (3) Unresponsive episode: Code(s): R41.89 - Other symptoms and signs involving cognitive functions and awareness Status: Resolved Assessment and Plan: -----likely due to orthostatic hypotension. MRI of the brain is negative for acute stroke. CTA does show a blood clot but not big enough to be causing his decreased level of awareness. See above (4) Pneumonia: Qualifiers: Pneumonia type: due to unspecified organism Laterality: unspecified laterality Lung location: unspecified part of lung Qualified Code(s): J18.9 - Pneumonia, unspecified organism Code(s): J18.9 - Pneumonia, unspecified organism Status: Acute Assessment and Plan: -----CXR unchanged today. Influenza B positive with mild airspace opacities likely pneumonia. Completed antibiotic course but now on doxycycline since he is not improving. He is immunosuppressed and the bell spinner recommended Tamiflu x5 days but pt refused so this was stopped. Continue bronchodilator therapy with duo nebs, pulmozyme and PEP therapy. May undergo a bronch Friday, will place NPO at midnight just in case. Blood cultures negative. Pneumococcal and legionella antigens negative. (5) Influenza B: Code(s): J10.1 - Influenza due to other identified influenza virus with other respiratory manifestations Status: Acute Assessment and Plan: See above. (6) Acute respiratory failure: Qualifiers: Respiratory failure complication: hypoxia Qualified Code(s): J96.01 - Acute respiratory failure with hypoxia Code(s): J96.00 - Acute respiratory failure, unspecified whether with hypoxia or hypercapnia Status: Acute Assessment and Plan: -----2/2 to above. Resolved (7) Altered mental status: Qualifiers: Altered mental status type: delirium Qualified Code(s): R41.0 - Disorientation, unspecified Code(s): R41.82 - Altered mental status, unspecified Status: Resolved Assessment and Plan: -----see above. (8) Ulcerative colitis: Qualifiers: Ulcerative colitis location: unspecified ulcerative colitis location Digestive disease complication type: without complication Qualified Code(s): K51.90 - Ulcerative colitis, unspecified, without complications Code(s): K51.90 - Ulcerative colitis, unspecified, without complications Status: Chronic Assessment and Plan: ------Patient was currently undergoing a prednisone taper for UC flare-up about a month ago. His dose of mesalamine was recently increased which patient and report has caused him to sleep all day for weeks. Held mesalamine here for now. CT abdomen/pelvis with no acute intra-abdominal abnormalities. See above (9) Stool culture positive for Clostridium difficile: Code(s): R19.5 - Other fecal abnormalities Status: Acute
--- NOTE | 2019-09-19 23:33 | PM.PNPUL ---
Progress Note: A&P Assessment and Plan (1) Pulmonary embolism: Code(s): I26.99 - Other pulmonary embolism without acute cor pulmonale Status: Acute Assessment and Plan: This is a provoked pulmonary embolism and I would suggest treating for no longer than three months with Ninoskaiesha. A longer duration may increase his risk of GI bleeding given his ongoing pancolitis. (2) Orthostatic hypotension: Code(s): I95.1 - Orthostatic hypotension Status: Acute Assessment and Plan: BP seems to have stablized after switching to hydrocortisone (3) Hypotension, iatrogenic: Code(s): I95.89 - Other hypotension Status: Acute (4) Viral pneumonia: Code(s): J12.9 - Viral pneumonia, unspecified Status: Acute Assessment and Plan: - Not improving - Dr. Martinez will assess if he still needs bronchoscopy tomorrow - Sputum culture was of poor quality and hence not helpful. Subjective Date/time seen: 09/19/19 23:33 Interval history: Feeling better he tells me. No hypotensive events in past two days. Still very weak and bed ridden. Still minimal to no sputum production. Review of Systems Review of Systems: All systems reviewed & are unremarkable except as noted in HPI and below Exam Const: General: comfortable and no acute distress Neck: Neck: trachea midline and supple Resp: Effort & Inspection: normal respiratory effort and able to speak in complete sentences Auscultation: rhonchi and wheezes Cardio: Jugular venous distension: no JVD Rate: regular rate Rhythm: regular rhythm Heart sounds: S1 normal heart sound present and S2 normal heart sound present GI: Inspection: normal to inspection GI Palp: Yes Soft to palpation Auscultation: normal bowel sounds Extrem: General: normal to inspection and no clubbing, cyanosis or edema Objective Data Vital Signs Vital Signs: Vital Signs - 24 hr 09/19/19 01:47 09/19/19 01:55 09/19/19 06:00 Temperature 36.6 C Pulse Rate 74 78 89 Respiratory Rate 20 20 22 H Blood Pressure 123/64 Pulse Oximetry 93 09/19/19 08:11 09/19/19 08:15 09/19/19 08:24 Temperature Pulse Rate 83 82 Respiratory Rate 20 20 Blood Pressure Pulse Oximetry 97 09/19/19 08:42 09/19/19 14:00 02/23/20 14:05 Temperature 36.2 C L Pulse Rate 79 88 Respiratory Rate 22 H 20 Blood Pressure 94/58 L Pulse Oximetry 90 91 09/19/19 14:16 09/19/19 22:00 09/19/19 22:30 Temperature 36.2 C L Pulse Rate 89 77 77 Respiratory Rate 20 18 20 Blood Pressure 109/87 Pulse Oximetry 97 09/19/19 22:40 Temperature Pulse Rate 79 Respiratory Rate 22 H Blood Pressure Pulse Oximetry Intake/Output Intake/Output: Intake & Output 09/16/19 09/17/19 09/18/19 09/19/19 23:59 23:59 23:59 23:59 Intake Total 1999 1840 1160 1160 Output Total 1200 100 300 100 Balance 800 6969 262 9549 Meds/Results Medications: Active Medications Generic Name Dose Route Start Last Admin Trade Name Freq PRN Reason Stop Dose Admin Acetaminophen 650 mg 09/05/19 14:21 09/19/19 10:30 Tylenol Tablet PO 650 mg Q4H PRN Administration Mild Pain (1-3) or Fever Apixaban 10 mg 09/16/19 21:00 09/19/19 20:51 Eliquis PO 09/23/19 09:01 10 mg Q12HR AL Administration Aspirin 81 mg 09/06/19 08:00 09/19/19 08:43 Aspirin Chewable PO 81 mg DAILY@0800 AL Administration Cyanocobalamin 1,000 mcg 09/06/19 09:00 09/19/19 08:44 Vitamin B-12 Tab PO 1,000 mcg DAILY AL Administration Dornase Stephan 2.5 mg 09/07/19 20:00 09/19/19 22:43 Pulmozyme INHALATION 2.5 mg Q12HRT AL Administration Famotidine 20 mg 09/13/19 09:00 09/19/19 20:49 Pepcid PO 20 mg Q12HR AL Administration Folic Acid 1 mg 09/06/19 09:00 09/19/19 08:43 Folic Acid PO 1 mg DAILY AL Administration Gabapentin 600 mg 09/06/19 09:00 09/19/19 08:43 Neurontin PO 600 mg DAILY AL Administration Hydrocorti
[2019-09-20] VITALS (21 sets, daily range): BP systolic 108–180; BP diastolic 69–100; PULSE 77–95; RESP 16–35; TEMP 36.5–37.3; O2SAT 90–97
[2019-09-20] MEDS: LEVALBUTEROL NEB 1.25 MG/3 ML 0.63 MG INHALATION ×4 (03:07→19:40)
[2019-09-20] MEDS: IPRATROPIUM BR 0.02% INH SOLN 0.5 MG/2.5 ML VIAL INHALATION ×4 (03:08→19:41)
[2019-09-20 05:52] LABS: Hematocrit 30.2 % (42.0-52.0); Hemoglobin 9.3 g/dL (14.0-18.0); Mean Corpuscular HGB Conc 30.8 g/dl (32-36); Mean Corpuscular Hemoglobin 29.7 pg (26-34); Mean Corpuscular Volume 96.5 fl (80-100); Mean Platelet Volume 11.3 fl (7.4-10.4); Platelet Count Result 153 k/mm3 (150-375); Red Blood Count 3.13 M/mm3 (4.6-6.20); Red Cell Distribution Width 18.2 % (11.5-14.5); White Blood Count 10.3 K/mm3 (4.5-10.0)
[2019-09-20 06:05] LABS: Alanine Aminotransferase 14 U/L (4-50); Albumin Level 2.2 g/dL (3.5-5.1); Alkaline Phosphatase 51 U/L (38-126); Aspartate Amino Transferase 22 U/L (17-59); Bilirubin,Total 0.6 mg/dL (0.2-1.3); Blood Urea Nitrogen 35 mg/dL (9-20); Calcium 7.9 mg/dL (8.4-10.2); Carbon Dioxide 34 mmol/L (22-30); Chloride 101 mmol/L (98-107); Estimated CRCL calculation 53 ml/min; Estimated Glomerular Filt Rate > 60; Glucose 97 mg/dL (75-110); Magnesium 1.8 mg/dL (1.6-2.3); Phosphorus 3.3 mg/dL (2.5-4.5); Potassium 3.6 mmol/L (3.4-5.0); Sodium 139 mmol/L (137-145)
--- NOTE | 2019-09-20 07:12 | WPDGIPROGNO ---
Progress Note: A&P Additional Plan Patient alert and arousable this morning appears confused. This may be his baseline. Physical exam patient is anicteric. Remains on supplemental oxygen. Somewhat short of breath at rest. Heart abdomen is soft and nontender. Impression 1. Ulcerative colitis. Clinically stable. He has been on chronic steroids. Hopefully we can taper these gradually. I would advise restarting mesalamine. This is unlikely to change his mental status. Hopefully Imuran can be started when respiratory infection controlled. 2. Influenza B. 3. Pneumonia. Pulmonary service following I understand bronchoscopy anticipated. Subjective Date/time seen: 09/20/19 07:12 Objective Data Vital Signs Vital Signs: Vital Signs - 24 hr 09/19/19 08:11 09/19/19 08:15 09/19/19 08:24 Temperature Pulse Rate 83 82 Respiratory Rate 20 20 Blood Pressure Pulse Oximetry 97 09/19/19 08:42 09/19/19 14:00 09/19/19 14:05 Temperature 36.2 C L Pulse Rate 79 88 Respiratory Rate 22 H 20 Blood Pressure 94/58 L Pulse Oximetry 90 91 09/19/19 14:16 09/19/19 22:00 09/19/19 22:30 Temperature 36.2 C L Pulse Rate 89 77 77 Respiratory Rate 20 18 20 Blood Pressure 109/87 Pulse Oximetry 97 09/19/19 22:40 09/19/19 23:00 09/20/19 03:08 Temperature Pulse Rate 79 85 Respiratory Rate 22 H 22 H Blood Pressure Pulse Oximetry 95 09/20/19 03:18 09/20/19 06:00 Temperature 36.5 C Pulse Rate 82 95 Respiratory Rate 22 H 16 Blood Pressure 157/87 H Pulse Oximetry 94 Intake/Output Intake/Output: Intake & Output 09/17/19 09/18/19 09/19/19 09/20/19 23:59 23:59 23:59 23:59 Intake Total 1840 1160 1160 300 Output Total 100 300 100 200 Balance 9749 066 4763 100 Meds/Results Medications: Active Medications Generic Name Dose Route Start Last Admin Trade Name Freq PRN Reason Stop Dose Admin Acetaminophen 650 mg 09/05/19 14:21 09/19/19 10:30 Tylenol Tablet PO 650 mg Q4H PRN Administration Mild Pain (1-3) or Fever Apixaban 10 mg 09/16/19 21:00 09/19/19 20:51 Eliquis PO 09/23/19 09:01 10 mg Q12HR AL Administration Aspirin 81 mg 09/06/19 08:00 09/19/19 08:43 Aspirin Chewable PO 81 mg DAILY@0800 AL Administration Cyanocobalamin 1,000 mcg 09/06/19 09:00 09/19/19 08:44 Vitamin B-12 Tab PO 1,000 mcg DAILY AL Administration Dornase Stephan 2.5 mg 09/07/19 20:00 09/19/19 22:43 Pulmozyme INHALATION 2.5 mg Q12HRT AL Administration Famotidine 20 mg 09/13/19 09:00 09/19/19 20:49 Pepcid PO 20 mg Q12HR AL Administration Folic Acid 1 mg 09/06/19 09:00 09/19/19 08:43 Folic Acid PO 1 mg DAILY AL Administration Gabapentin 600 mg 09/06/19 09:00 09/19/19 08:43 Neurontin PO 600 mg DAILY AL Administration Hydrocortisone 20 mg 09/16/19 21:00 09/19/19 20:52 Cortef Tablet PO 20 mg Q12H AL Administration Doxycycline Hyclate 100 mg/ 100 mls @ 100 mls/hr 09/14/19 16:00 09/20/19 05:03 Dextrose IVPB Infused Q12H [facility] Infusion Ipratropium [place] 0.5 mg 09/05/19 20:00 09/20/19 03:08 Atrovent Neb INHALATION 0.5 mg Q6HRT AL Administration Levalbuterol HCl 0.63 mg 09/07/19 02:00 09/20/19 03:07 Xopenex 1.25 Mg/3 Ml INHALATION 0.63 mg Q6HRT AL Administration Losartan Potassium 50 mg 09/15/19 09:00 09/19/19 08:44 Cozaar PO 50 mg DAILY [facility] Administration Ondansetron HCl 4 mg 09/05/19 14:21 Zofran Inj IV PUSH Q4H PRN Nausea Polysaccharide Iron Complex 450 mg 09/06/19 08:00 09/18/19 08:25 Niferex-150 PO 450 mg Q48H AL Administration Radiology Results: ITS Impressions Abdomen/Pelvis CT 09/06/19 10:03 IMPRESSION: 1. Cardiomegaly, congestion, probable scattered basilar edema or pneumonia. 2. No acute intra-abdominal findings. 3. Fat-containing hernias. 4. Subacute and chronic fractures as above. Head
[2019-09-20] MEDS: DORNASE ALFA INH SOLN 1 MG/ML 2.5 ML AMP 2.5 MG INHALATION ×2 (08:55→19:41)
--- NOTE | 2019-09-20 10:27 | PM.PNPUL ---
Progress Note: A&P Assessment and Plan (1) Pulmonary embolism: Code(s): I26.99 - Other pulmonary embolism without acute cor pulmonale Status: Acute Assessment and Plan: This is a provoked pulmonary embolism and I would suggest treating for no longer than three months with Eliquis. A longer duration may increase his risk of GI bleeding given his ongoing pancolitis. (2) Orthostatic hypotension: Code(s): I95.1 - Orthostatic hypotension Status: Acute Assessment and Plan: BP seems to have stablized after switching to hydrocortisone (3) Hypotension, iatrogenic: Code(s): I95.89 - Other hypotension Status: Acute (4) Viral pneumonia: Code(s): J12.9 - Viral pneumonia, unspecified Status: Acute Assessment and Plan: - Not improving, persistent infitlrates niki Left base. - Discussed bronchoscopy with the patient and his . Will proceed with caution as he is on Eliquis; washings, BAL, no biopsy of brushings. He will benefit from having secretions suctioned from his airways. - Sputum culture was of poor quality and hence not helpful. Subjective Date/time seen: 09/20/19 10:27 Interval history: This 79 yo man is seen in follow up for new PE, persistent infiltrates after influenza with pneumonia. Infiltrates are mainly in the LLL. He is sitting up in bed, is at the bedside. He is coughing with thick dark yellow gelatinous secretions, only able to expectorate a small amount once a day. He says that his confusion has been persistent, better at times, but not back to baseline. No hypotensive events in past two days. Still very weak and bed ridden. Review of Systems Review of Systems: All systems reviewed & are unremarkable except as noted in HPI and below Constitutional: Constitutional: Reports fatigue (tired today, was not active; is using a walker. Hip pain. Good appetite.) and Reports other (little sputum, hard to expectorate even with therapy) Endocrine: Endocrine: Reports fatigue (tired today, was not active; is using a walker. Hip pain. Good appetite.) Exam Narrative: Exam Narrative: Diffuse weakness Const: General: comfortable and no acute distress HENMT: Mouth: Yes moist mucous membranes Eyes: General: appearance normal, both eyes and all related structures Neck: Neck: trachea midline, supple and no JVD Resp: Effort & Inspection: normal respiratory effort and able to speak in complete sentences Auscultation: rales, rhonchi, wheezes and diminished lung sounds Other: Exam is abnormal; has good air entry; bilateral crackles in the bases L>R, scattered rhonchi without wheeze. Cardio: Jugular venous distension: no JVD Rate: regular rate Rhythm: regular rhythm Heart sounds: S1 normal heart sound present, S2 normal heart sound present, no gallops, no murmurs and no rubs GI: Inspection: normal to inspection Auscultation: normal bowel sounds Other: umbilical hernia Skin: General skin exam: normal color Other: diffuse echymosis Extrem: General: normal to inspection, no clubbing, cyanosis or edema and no pedal edema Psych: Mental Status: mental status grossly normal Objective Data Vital Signs Vital Signs: Vital Signs - 24 hr 09/19/19 14:00 09/19/19 14:05 09/19/19 14:16 Temperature 36.2 C L Pulse Rate 79 88 89 Respiratory Rate 22 H 20 20 Blood Pressure 94/58 L Pulse Oximetry 91 09/19/19 22:00 09/19/19 22:30 09/19/19 22:40 Temperature 36.2 C L Pulse Rate 77 77 79 Respiratory Rate 18 20 22 H Blood Pressure 109/87 Pulse Oximetry 97 09/19/19 23:00 09/20/19 03:08 09/20/19 03:18 Temperature Pulse Rate 85 82 Respiratory Rate 22 H 22 H Blood Pressure Pulse Oximetry 95 09/20/19 06:00 Temperature 36.5 C Pulse Rate 95 Respiratory Rate 16 Blood Pressure 157/87 H Pulse Oximetry 94 Intake/Output Intake/Output: Intake & Output 09/17/19 09/18/19 09/19/19 09/20/19 23:59 23:59 23:59 23:59 Intake
--- NOTE | 2019-09-20 10:35 | PC.NURSE ---
To GI Lab per gordon for bronchoscopy, IV saline locked. Report given to ERIC Diaz.
--- NOTE | 2019-09-20 10:52 | WPDANESEPPF ---
Anes - Initial Pre Proc Eval Procedure: Operation Date: 09/20/19 10:30 Proposed Procedures p Flexible Bronchoscopy - Gertrude Martinez MD Date/Time: 09/20/19 10:52 Surgeon: Urmila Cohen PA-C Pre Op Diagnosis: Influenza B/Pnuemonia/Hypoxia Patient Data Age: 79 Gender: M Height: 6 ft 1 in Weight: 84.7 kg Last Vital Signs Temp 36.5 C 09/20/19 06:00 Pulse 95 09/20/19 06:00 Resp 16 09/20/19 06:00 BP 157/87 H 09/20/19 06:00 Pulse Ox 94 09/20/19 06:00 Allergies Allergy/AdvReac Type Severity Reaction Status Date / Time No Known Allergies Allergy Unknown Verified 09/20/19 09:47 Home Medications Medication Instructions Recorded Confirmed Type acetaminophen [Tylenol Arthritis 650 mg PO Q8H PRN 09/05/19 09/05/19 History Pain] aspirin 81 mg PO DAILY 09/05/19 09/05/19 History azathioprine 150 mg PO DAILY 09/05/19 09/05/19 History carvedilol [Coreg] 3.125 mg PO BID 09/05/19 09/05/19 History cholecalciferol (vitamin D3) 4,000 unit PO DAILY 09/05/19 09/05/19 History [Vitamin D3] cyanocobalamin (vitamin B-12) 1,000 mcg PO DAILY 09/05/19 09/05/19 History [Vitamin B-12] denosumab [Prolia] 60 mg [id number] [id number] 09/05/19 09/05/19 History folic acid 1 mg PO DAILY 09/05/19 09/05/19 History gabapentin 600 mg PO DAILY 09/05/19 09/05/19 History losartan 100 mg PO DAILY 09/05/19 09/05/19 History mesalamine 4.8 g PO DAILY 09/05/19 09/05/19 History multivitamin 1 tablet PO DAILY 09/05/19 09/05/19 History polysaccharide iron complex 450 mg PO EVERY OTHER DAY 09/05/19 09/05/19 History [Poly-Iron] prednisone 30 mg PO DAILY 09/05/19 09/05/19 History Laboratory Tests 09/20/19 09/20/19 05:44 05:44 WBC 10.3 K/mm3 H K/mm3 (4.5-10.0) RBC 3.13 M/mm3 L M/mm3 (4.6-6.20) Hgb 9.3 g/dL L g/dL (14.0-18.0) Hct 30.2 % L % (42.0-52.0) MCV 96.5 fl D fl (80-100) MCH 29.7 pg pg (26-34) MCHC 30.8 g/dl L g/dl (32-36) RDW 18.2 % H % (11.5-14.5) Plt Count 153 k/mm3 k/mm3 (150-375) MPV 11.3 fl H fl (7.4-10.4) Sodium 139 mmol/L mmol/L (137-145) Potassium 3.6 mmol/L mmol/L (3.4-5.0) Chloride 101 mmol/L mmol/L (98-107) Carbon Dioxide 34 mmol/L H mmol/L (22-30) BUN 35 mg/dL H mg/dL (9-20) Creatinine 1.10 mg/dL mg/dL (0.7-1.3) Estim Creat Clear Calc 53 ml/min ml/min Estimated GFR > 60 (59 - ) Glucose 97 mg/dL mg/dL (75-110) Calcium 7.9 mg/dL L mg/dL (8.4-10.2) Phosphorus 3.3 mg/dL mg/dL (2.5-4.5) Magnesium 1.8 mg/dL mg/dL (1.6-2.3) Total Bilirubin 0.6 mg/dL mg/dL (0.2-1.3) AST 22 U/L U/L (17-59) ALT 14 U/L U/L (4-50) Alkaline Phosphatase 51 U/L U/L (38-126) Total Protein 4.0 g/dL L g/dL (6.3-8.2) Albumin 2.2 g/dL L g/dL (3.5-5.1) Patient hx anesthesia problems: none Family hx anesthesia problems: none PMFSH Past Medical History Medical History Cataracts, bilateral Cirrhosis GERD (gastroesophageal reflux disease) H/O: HTN (hypertension) Hx of ulcerative colitis Hypertension OA (osteoarthritis) Peripheral neuropathy Ulcerative colitis Umbilical hernia Surgical History Surgical History History of umbilical hernia repair Hx of bilateral cataract extraction Status post right partial knee replacement Family History Family History Other Unknown family medical history Social History Social History Smoking packs per day: 2 Smoking cigarettes per day: 40.0 Years smoked: 30 Smoking pack-years: 60.00 Smoking status: Former smoker Tobacco type: cigarettes Alcohol intake: never Substance use: never Substance use type: does not use
[2019-09-20] MEDS: LACTATED RINGERS 1,000 ML 150 ML IV CONT (11:00)
[2019-09-20] MEDS: LIDOCAINE HCL 2% LOCAL INJ 20 ML VIAL 6 ML IRRIGATION (12:01)
--- NOTE | 2019-09-20 12:06 | SUR.OPER ---
output: 57ml in mucous specimen trap
--- NOTE | 2019-09-20 13:16 | PC.NURSE ---
Returned from GI Lab. Report received from ERIC Anders.
[2019-09-20] MEDS: POLYSACCHARIDE IRON COMPLEX 150 MG CAPSULE 450 MG PO (13:39)
[2019-09-20] MEDS: APIXABAN 5 MG TABLET 10 MG PO ×2 (13:40→20:19)
[2019-09-20] MEDS: ASPIRIN 81 MG CHEWABLE TABLET PO (13:40)
--- NOTE | 2019-09-20 13:40 | PC.NURSE ---
Patient's 0900 medications given late due to NPO status for bronchoscopy.
[2019-09-20] MEDS: CYANOCOBALAMIN 1,000 MCG TABLET 1000 MCG PO (13:41)
[2019-09-20] MEDS: GABAPENTIN 300 MG CAPSULE 600 MG PO (13:41)
[2019-09-20] MEDS: LOSARTAN POTASSIUM 50 MG TABLET PO (13:41)
[2019-09-20] MEDS: FOLIC ACID 1 MG TABLET PO (13:41)
[2019-09-20] MEDS: FAMOTIDINE 20 MG TABLET PO ×2 (13:41→20:19)
--- NOTE | 2019-09-20 13:41 | PCNWS ---
Weekly nutritional screen. Patient is tolerating current diet with adequate intake. No weight loss reported. No nutritional needs at this time.
[2019-09-20] MEDS: HYDROCORTISONE 10 MG TABLET 20 MG PO ×2 (13:42→20:19)
[2019-09-20] MEDS: MESALAMINE 400 MG DELAYED RELEASE CAPSULE 800 MG PO ×2 (13:42→16:08)
--- NOTE | 2019-09-20 15:52 | PM.IMPN ---
Progress Note: A&P Assessment and Plan (1) Orthostatic hypotension: Code(s): I95.1 - Orthostatic hypotension <Urmila NegronCarrie ISMAEL Cohen - Last Filed: 09/20/19 16:00> Status: Acute <Urmila Maurice GEE Cohen-C - Last Filed: 09/20/19 16:00> Assessment and Plan: -----orthostatic blood pressures appear to have improved and have not been recheck since he is asymptomatic. 20mg of lasix given 09/18 which helped but he got confused with this medication. Family thinks it may be the lasix that is making him confused since at the beginning of his stay and he was confused while taking it. Will monitor for orthostatic symptoms. Continue PT. Continue hydrocortisone. echo looks okay. Coreg stopped. <Urmila Cohen PA-C - Last Filed: 09/20/19 16:00> (2) Pulmonary embolism: Code(s): I26.99 - Other pulmonary embolism without acute cor pulmonale <VINNY BartlettC - Last Filed: 09/20/19 16:00> Status: Acute <VINNY BartlettC - Last Filed: 09/20/19 16:00> Assessment and Plan: -----noted on CTA. Could have be contributing to hypoxia but likely not causing his transient decreased level of awareness. Patient transitioned to Eliquis and doing well. He is currently on dose 8 of 14 of 10 mg b.i.d.. Will need to be transition to 5 mg b.i.d. thereafter. Suspect he will need 3 months of therapy. DVT also noted. Unsure if was present on admission or not. <Urmila Cohen PA-C - Last Filed: 09/20/19 16:00> (3) Unresponsive episode: Code(s): R41.89 - Other symptoms and signs involving cognitive functions and awareness <VINNY BartlettC - Last Filed: 09/20/19 16:00> Status: Resolved <GEE Bartlett-C - Last Filed: 09/20/19 16:00> Assessment and Plan: -----likely due to orthostatic hypotension. MRI of the brain is negative for acute stroke. CTA does show a blood clot but not big enough to be causing his decreased level of awareness. See above <VINNY BartlettC - Last Filed: 09/20/19 16:00> (4) Pneumonia: Qualifiers: Laterality: unspecified laterality Lung location: unspecified part of lung Pneumonia type: due to unspecified organism Qualified Code(s): J18.9 - Pneumonia, unspecified organism <VINNY BartlettC - Last Filed: 09/20/19 16:00> Code(s): J18.9 - Pneumonia, unspecified organism <GEE Bartlett-C - Last Filed: 09/20/19 16:00> Status: Acute <GEE Bartlett-C - Last Filed: 09/20/19 16:00> Assessment and Plan: -----bronchoscopy today which showed white mucus in no thick purulence material or masses. The white secretions were in all segments and were washed and suctioned. Patient is on Eliquis so will monitor for hemoptysis. CXR 09/19 unchanged. Influenza B positive with mild airspace opacities likely pneumonia. Completed antibiotic course but now on doxycycline since he is not improving recommended by pulmonology. He is immunosuppressed and the stripper cutter machine recommended Tamiflu x5 days but pt refused so this was stopped. Continue bronchodilator therapy with duo nebs, pulmozyme and PEP therapy. Blood cultures negative. Pneumococcal and legionella antigens negative. <Urmila Cohen PA-C - Last Filed: 09/20/19 16:00> (5) Influenza B: Code(s): J10.1 - Influenza due to other identified influenza virus with other respiratory manifestations <GEE Bartlett-C - Last Filed: 09/20/19 16:00> Status: Acute <VINNY BartlettC - Last Filed: 09/20/19 16:00> Assessment and Plan: See above. <GEE Bartlett-C - Last Filed: 09/20/19 16:00> (6) Acute respiratory failure: Qualifiers: Respiratory failure complication: hypoxia Qualified Code(s): J96.01 - Acute respiratory failure with hypoxia <Urmila Cohen PA-C - Last Filed: 09/20/19 16:00> Code(s):
--- NOTE | 2019-09-20 19:08 | PC.NURSE ---
On 09/20/19, the license pending Registered Nurse, Iglesia Kemp, provided care and completed [employer] documentation on this patient. I have reviewed the documentation and agree with the findings.
[2019-09-21] VITALS (15 sets, daily range): BP systolic 73–161; BP diastolic 48–98; PULSE 77–95; RESP 18–24; TEMP 36.1–36.3; O2SAT 90–99
[2019-09-21] MEDS: IPRATROPIUM BR 0.02% INH SOLN 0.5 MG/2.5 ML VIAL INHALATION ×4 (01:16→19:45)
[2019-09-21] MEDS: LEVALBUTEROL NEB 1.25 MG/3 ML 0.63 MG INHALATION ×4 (01:17→19:45)
[2019-09-21 08:34] LABS: Blood Urea Nitrogen 31 mg/dL (9-20); Calcium 7.8 mg/dL (8.4-10.2); Carbon Dioxide 34 mmol/L (22-30); Chloride 99 mmol/L (98-107); Estimated CRCL calculation 64 ml/min; Estimated Glomerular Filt Rate > 60; Glucose 92 mg/dL (75-110); Potassium 3.6 mmol/L (3.4-5.0); Sodium 140 mmol/L (137-145)
[2019-09-21 08:48] LABS: Hematocrit 28.7 % (42.0-52.0); Hemoglobin 8.9 g/dL (14.0-18.0); Mean Corpuscular Hemoglobin 29.5 pg (26-34); Platelet Count Result 158 k/mm3 (150-375); Red Blood Count 3.02 M/mm3 (4.6-6.20); Red Cell Distribution Width 17.7 % (11.5-14.5); White Blood Count 8.7 K/mm3 (4.5-10.0)
[2019-09-21] MEDS: APIXABAN 5 MG TABLET 10 MG PO ×2 (09:08→21:25)
[2019-09-21] MEDS: FAMOTIDINE 20 MG TABLET PO ×2 (09:08→21:25)
[2019-09-21] MEDS: MESALAMINE 400 MG DELAYED RELEASE CAPSULE 800 MG PO ×3 (09:08→17:26)
[2019-09-21] MEDS: LOSARTAN POTASSIUM 50 MG TABLET PO (09:09)
[2019-09-21] MEDS: FOLIC ACID 1 MG TABLET PO (09:09)
[2019-09-21] MEDS: GABAPENTIN 300 MG CAPSULE 600 MG PO (09:09)
[2019-09-21] MEDS: CYANOCOBALAMIN 1,000 MCG TABLET 1000 MCG PO (09:09)
[2019-09-21] MEDS: ASPIRIN 81 MG CHEWABLE TABLET PO (09:09)
[2019-09-21] MEDS: HYDROCORTISONE 10 MG TABLET 20 MG PO ×2 (09:10→21:25)
[2019-09-21] MEDS: DORNASE ALFA INH SOLN 1 MG/ML 2.5 ML AMP 2.5 MG INHALATION ×2 (09:22→19:45)
--- NOTE | 2019-09-21 10:39 | WPDGIPROGNO ---
Progress Note: A&P Additional Plan Patient remains alert. But confused at times. Still some shortness of breath noted. Physical exam reveals him to be alert. Abdomen is soft nontender with no organomegaly. Patient had bronchoscopy yesterday. Impression 1. Ulcerative colitis. Currently asymptomatic. He is on steroids. Mesalamine restarted yesterday. This would be unlikely to contribute to his mental status changes. Hopefully steroids can be tapered as soon as feasible. 2. Pneumonia. 3. Influenza B. 4. Pulmonary embolus. 5. C difficile toxin positive stool. Patient has now completed a course of Dificid. No diarrhea evident during this hospital stay. 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 Plan for supportive care. No specific therapy at this time. Subjective Date/time seen: 09/21/19 10:39 Objective Data Vital Signs Vital Signs: Vital Signs - 24 hr 09/20/19 10:59 09/20/19 11:00 09/20/19 11:52 Temperature 37.3 C 36.8 C Pulse Rate 89 80 Respiratory Rate 18 25 H Blood Pressure 152/100 H 143/76 H Pulse Oximetry 90 96 97 09/20/19 12:02 09/20/19 12:12 09/20/19 12:22 Temperature Pulse Rate 89 90 86 Respiratory Rate 22 H 29 H 30 H Blood Pressure 180/98 H 166/98 H 173/96 H Pulse Oximetry 95 94 95 09/20/19 12:32 09/20/19 12:42 09/20/19 12:52 Temperature Pulse Rate 87 88 89 Respiratory Rate 32 H 35 H 33 H Blood Pressure 152/93 H 151/94 H 147/91 H Pulse Oximetry 95 96 97 09/20/19 14:00 09/20/19 14:05 09/20/19 14:15 Temperature 37.2 C Pulse Rate 90 85 89 Respiratory Rate 16 20 20 Blood Pressure 140/90 Pulse Oximetry 96 09/20/19 19:41 09/20/19 19:43 09/20/19 19:58 Temperature Pulse Rate 86 89 Respiratory Rate 20 20 Blood Pressure Pulse Oximetry 91 09/20/19 22:00 09/21/19 01:17 09/21/19 01:26 Temperature 37.0 C Pulse Rate 77 90 87 Respiratory Rate 18 20 20 Blood Pressure 108/69 Pulse Oximetry 97 09/21/19 09:22 09/21/19 09:23 09/21/19 09:32 Temperature Pulse Rate 95 92 Respiratory Rate 20 24 H Blood Pressure Pulse Oximetry 90 Intake/Output Intake/Output: Intake & Output 09/18/19 09/19/19 09/20/19 09/21/19 23:59 23:59 23:59 23:59 Intake Total 1160 1160 1050 100 Output Total 300 100 600 Balance 860 1060 450 100 Meds/Results Medications: Active Medications Generic Name Dose Route Start Last Admin Trade Name Freq PRN Reason Stop Dose Admin Acetaminophen 650 mg 09/05/19 14:21 09/19/19 10:30 Tylenol Tablet PO 650 mg Q4H PRN Administration Mild Pain (1-3) or Fever Apixaban 10 mg 09/16/19 21:00 09/21/19 09:08 Eliquis PO 09/23/19 09:01 10 mg Q12HR AL Administration Aspirin 81 mg 09/06/19 08:00 09/21/19 09:09 Aspirin Chewable PO 81 mg DAILY@0800 AL Administration Cyanocobalamin 1,000 mcg 09/06/19 09:00 09/21/19 09:09 Vitamin B-12 Tab PO 1,000 mcg DAILY AL Administration Dornase Stephan 2.5 mg 09/07/19 20:00 09/21/19 09:22 Pulmozyme INHALATION 2.5 mg Q12HRT AL Administration Famotidine 20 mg 09/13/19 09:00 09/21/19 09:08 Pepcid PO 20 mg Q12HR AL Administration Folic Acid 1 mg 09/06/19 09:00 09/21/19 09:09 Folic Acid PO 1 mg DAILY AL Administration Gabapentin 600 mg 09/06/19 09:00 09/21/19 09:09 Neurontin PO 600 mg DAILY AL Administration Hydrocortisone 20 mg 09/16/19 21:00 09/21/19 09:10 Cortef Tablet PO 20 mg Q12H AL Administration Doxycycline Hyclate 100 mg/ 100 mls @ 100 mls/hr 09/14/19 16:00 09/21/19 05:20 Dextrose IVPB Infused Q12H AL Infusion Ipratropium [place] 0.5 mg 09/05/19 20:00 09/21/19 09:19 Atrovent Neb INHALATION 0.5 mg Q6HRT AL Administration Levalbuterol HCl 0.63 mg 09/07/19 02:00 09/21/19 09:18 Xopenex 1.25 Mg/3 Ml INHALATION 0.63 mg Q6HRT AL Administration Losartan Potassium 50 mg 09/15/19 09:00 09/21/19 09:09 Cozaar PO 50 mg
--- NOTE | 2019-09-21 14:19 | PM.IMPN ---
Progress Note: A&P Assessment and Plan (1) Orthostatic hypotension: Code(s): I95.1 - Orthostatic hypotension Status: Acute Assessment and Plan: Were improved after initiation of hydrocortisone over the last few days, now worse again today with a manual blood pressure of 73/48 while sitting which improved to 110/62 when transitioned back to supine. Continue hydrocortisone. Continue PT/OT. Monitor for orthostatic symptoms. Consider midodrine if no improvement? (2) Pulmonary embolism: Code(s): I26.99 - Other pulmonary embolism without acute cor pulmonale Status: Acute Assessment and Plan: Noted on CTA; small pulmonary embolism in the right main pulmonary artery extending into several right upper lobe segmental arteries, low clot burden. Left lower extremity DVT also noted. Transitioned to Eliquis and doing well. Currently on 10 mg Eliquis BID x14 doses with plan to transition to 5 mg BID thereafter. Unsure if present on admission. (3) Unresponsive episode: Code(s): R41.89 - Other symptoms and signs involving cognitive functions and awareness Status: Resolved Assessment and Plan: Patient has had a few episodes since 09/13 of decreased responsiveness that is intermittent, none in the last few days. Transient episodes of decreased awareness may be associated with the orthostatic hypotension; however he has also been experiencing hallucinations and generally increased confusion, see below. MRI of brain shows no acute intracranial findings. Neurology consulted - appreciate recommendations. (4) Pneumonia: Qualifiers: Laterality: unspecified laterality Lung location: unspecified part of lung Pneumonia type: due to unspecified organism Qualified Code(s): J18.9 - Pneumonia, unspecified organism Code(s): J18.9 - Pneumonia, unspecified organism Status: Acute Assessment and Plan: Influenza B positive on arrival with persistent bilateral infiltrates. Bronchoscopy 09/20. Still with significant wheezing and rhonchi throughout despite optimization of his respiratory regimen by pulmonology. Bronchial washings sent for culture. Blood cultures negative earlier in the stay and repeated yesterday. Pneumococcal and legionella antigens negative. Completed one week of antibiotics earlier in the admission; due to imunocompromised and no improvement, pulmonology restarted doxycycline. Appreciate pulmonology recommendations. (5) Influenza B: Code(s): J10.1 - Influenza due to other identified influenza virus with other respiratory manifestations Status: Acute Assessment and Plan: See above. (6) Acute respiratory failure: Qualifiers: Respiratory failure complication: hypoxia Qualified Code(s): J96.01 - Acute respiratory failure with hypoxia Code(s): J96.00 - Acute respiratory failure, unspecified whether with hypoxia or hypercapnia Status: Acute Assessment and Plan: Secondary to influenza, pnuemonia, PE could be contributing. (7) Altered mental status: Qualifiers: Altered mental status type: delirium Qualified Code(s): R41.0 - Disorientation, unspecified Code(s): R41.82 - Altered mental status, unspecified Status: Acute Assessment and Plan: Better today per his at bedside but overall not improving much. Consider Parkinsons (intermittent resting tremor has been noted days prior, none today), dementia, orthostatic hypotension. Tamiflu was stopped earlier in the stay due to increased confusion. He improved after stopping Tamiflu, now continues with intermittent confusion. Appreciate neurology input. (8) Ulcerative colitis: Qualifiers: Digestive disease complicatio
--- NOTE | 2019-09-21 19:13 | PC.NURSE ---
On 09/21/2019, the License pending nurse, Iglesia Kemp RN provided care and completed [employer] documentation on this patient. I have reviewed the documentation and agree with the findings.
--- NOTE | 2019-09-21 21:42 | PM.PNPUL ---
Progress Note: A&P Assessment and Plan (1) Pulmonary embolism: Code(s): I26.99 - Other pulmonary embolism without acute cor pulmonale Status: Acute Assessment and Plan: This is a provoked pulmonary embolism; treat for three months with Eliquis. A longer duration may increase his risk of GI bleeding given his ongoing pancolitis. (2) Orthostatic hypotension: Code(s): I95.1 - Orthostatic hypotension Status: Acute Assessment and Plan: had some borderline BP today. Appeared that this was better after switching to hydrocortisone. (3) Hypotension, iatrogenic: Code(s): I95.89 - Other hypotension Status: Acute Assessment and Plan: defer to medical team (4) Viral pneumonia: Code(s): J12.9 - Viral pneumonia, unspecified Status: Acute Assessment and Plan: - Not improving, persistent infiltrates niki Left base. Bronchoscopy yesterday 09/20/2019 was significant for white secretions, not excessive in amount. - Results so far show nothing new; will continue to encourage him to participate with therapy, increase strength, use weights and bands if he cannot get out of bed to exercise Subjective Date/time seen: 09/21/19 21:42 Interval history: This 79 yo man is seen in follow up for new PE, persistent infiltrates after influenza with pneumonia. Had bronch yesterday,no growth or other information has been on on fluid. He is sitting up in bed, at bedside. he still coughs with little white sputum being expectorated. He has not been able to get out of bed to do much since he is having hypotension. confusion waxes and wanes. Still very weak and bed ridden. Review of Systems Review of Systems: All systems reviewed & are unremarkable except as noted in HPI and below Constitutional: Constitutional: Reports fatigue (tired today, was not active; is using a walker. Hip pain. Good appetite.) and Reports other (little sputum, hard to expectorate even with therapy) Endocrine: Endocrine: Reports fatigue (tired today, was not active; is using a walker. Hip pain. Good appetite.) Exam Narrative: Exam Narrative: Diffuse weakness Const: General: comfortable and no acute distress HENMT: Mouth: Yes moist mucous membranes Eyes: General: appearance normal, both eyes and all related structures Neck: Neck: trachea midline, supple and no JVD Resp: Effort & Inspection: normal respiratory effort and able to speak in complete sentences Auscultation: rales, rhonchi, wheezes and diminished lung sounds Other: Exam is abnormal; has good air entry; bilateral crackles in the bases L>R, scattered rhonchi without wheeze. Cardio: Jugular venous distension: no JVD Rate: regular rate Rhythm: regular rhythm Heart sounds: S1 normal heart sound present, S2 normal heart sound present, no gallops, no murmurs and no rubs GI: Inspection: normal to inspection Auscultation: normal bowel sounds Other: umbilical hernia Skin: General skin exam: normal color Other: diffuse echymosis Extrem: General: normal to inspection, no clubbing, cyanosis or edema and no pedal edema Psych: Mental Status: mental status grossly normal Objective Data Vital Signs Vital Signs: Vital Signs - 24 hr 09/20/19 22:00 09/21/19 01:17 09/21/19 01:26 Temperature 37.0 C Pulse Rate 77 90 87 Respiratory Rate 18 20 20 Blood Pressure 108/69 Pulse Oximetry 97 09/21/19 09:04 09/21/19 09:22 09/21/19 09:23 Temperature Pulse Rate 88 95 Respiratory Rate 20 Blood Pressure 161/96 H Pulse Oximetry 98 90 09/21/19 09:32 09/21/19 10:25 09/21/19 10:28 Temperature Pulse Rate 92 94 Respiratory Rate 24 H Blood Pressure 73/48 L 110/62 Pulse Oximetry 99 09/21/19 14:00 09/21/19 15:19 09/21/19 15:36 Temperature 36.3 C L Pulse Rate 86 77 88 Respiratory Rate 22 H 20 20 Blood Pressure 112/70 Pulse Oximetry 98 09/21/19 19:46 09/21/19 19:48 09/21/19 20:07 Temperature Pulse Rate
[2019-09-22] VITALS (12 sets, daily range): BP systolic 100–156; BP diastolic 54–91; PULSE 82–92; RESP 20–22; TEMP 36.2–36.6; O2SAT 91–97
[2019-09-22] MEDS: LEVALBUTEROL NEB 1.25 MG/3 ML 0.63 MG INHALATION ×3 (01:41→21:29)
[2019-09-22] MEDS: IPRATROPIUM BR 0.02% INH SOLN 0.5 MG/2.5 ML VIAL INHALATION ×3 (01:41→21:29)
[2019-09-22 05:17] LABS: Basophils Percent Auto 0.1 % (0.2-1.2); Eosinophils Percent Auto 0.3 % (0-4.4); Hemoglobin 8.5 g/dL (14.0-18.0); Immature Granulocyte Absolute 0.08 K/mm3 (0.00-0.031); Immature Granulocyte Percent A 0.9 % (0-0.5); Lymphocytes Absolute Auto 0.39 K/mm3 (0.9-3.2); Lymphocytes Percent Auto 4.5 % (18.3-44.2); Mean Corpuscular HGB Conc 30.4 g/dl (32-36); Mean Corpuscular Volume 95.6 fl (80-100); Mean Platelet Volume 11.3 fl (7.4-10.4); Monocytes Absolute Auto 0.9 K/mm3 (0.1-0.6); Monocytes Percent Auto 9.8 % (2.6-8.5); Neutrophils Absolute Auto 7.3 K/mm3 (1.3-6.7); Neutrophils Percent Auto 84.4 % (45.5-73.1); Platelet Count Result 154 k/mm3 (150-375); Red Blood Count 2.93 M/mm3 (4.6-6.20); Red Cell Distribution Width 17.6 % (11.5-14.5); White Blood Count 8.7 K/mm3 (4.5-10.0)
[2019-09-22 05:32] LABS: Blood Urea Nitrogen 31 mg/dL (9-20); Calcium 8.3 mg/dL (8.4-10.2); Carbon Dioxide 32 mmol/L (22-30); Chloride 102 mmol/L (98-107); Estimated CRCL calculation 64 ml/min; Estimated Glomerular Filt Rate > 60; Glucose 159 mg/dL (75-110); Magnesium 1.8 mg/dL (1.6-2.3); Phosphorus 3.3 mg/dL (2.5-4.5); Potassium 3.8 mmol/L (3.4-5.0); Sodium 139 mmol/L (137-145)
[2019-09-22] MEDS: ASPIRIN 81 MG CHEWABLE TABLET PO (08:20)
[2019-09-22] MEDS: POLYSACCHARIDE IRON COMPLEX 150 MG CAPSULE 450 MG PO (08:20)
[2019-09-22] MEDS: CYANOCOBALAMIN 1,000 MCG TABLET 1000 MCG PO (08:21)
[2019-09-22] MEDS: FOLIC ACID 1 MG TABLET PO (08:21)
[2019-09-22] MEDS: FAMOTIDINE 20 MG TABLET PO ×2 (08:21→21:45)
[2019-09-22] MEDS: APIXABAN 5 MG TABLET 10 MG PO ×2 (08:21→21:46)
[2019-09-22] MEDS: GABAPENTIN 300 MG CAPSULE 600 MG PO (08:21)
[2019-09-22] MEDS: HYDROCORTISONE 10 MG TABLET 20 MG PO ×2 (08:21→21:45)
[2019-09-22] MEDS: LOSARTAN POTASSIUM 50 MG TABLET PO (08:22)
[2019-09-22] MEDS: DORNASE ALFA INH SOLN 1 MG/ML 2.5 ML AMP 2.5 MG INHALATION ×2 (08:33→21:30)
[2019-09-22] MEDS: MESALAMINE 400 MG DELAYED RELEASE CAPSULE 800 MG PO ×3 (10:31→17:10)
--- NOTE | 2019-09-22 12:31 | PM.IMPN ---
Progress Note: A&P Assessment and Plan (1) Orthostatic hypotension: Code(s): I95.1 - Orthostatic hypotension Status: Resolved Assessment and Plan: Improved on hydrocortisone (2) Pulmonary embolism: Code(s): I26.99 - Other pulmonary embolism without acute cor pulmonale Status: Acute Assessment and Plan: Noted on CTA; small pulmonary embolism in the right main pulmonary artery extending into several right upper lobe segmental arteries, low clot burden. Left lower extremity DVT also noted. Transitioned to Eliquis. (3) Unresponsive episode: Code(s): R41.89 - Other symptoms and signs involving cognitive functions and awareness Status: Resolved Assessment and Plan: Transient episodes of decreased awareness. Neurology on board (4) Pneumonia: Qualifiers: Pneumonia type: due to unspecified organism Laterality: unspecified laterality Lung location: unspecified part of lung Qualified Code(s): J18.9 - Pneumonia, unspecified organism Code(s): J18.9 - Pneumonia, unspecified organism Status: Acute Assessment and Plan: Influenza B positive on arrival with persistent bilateral infiltrates. Bronchoscopy 09/20. Bronchial washings. Blood cultures. Pneumococcal and legionella antigens negative. Completed one week of antibiotics Appreciate pulmonology recommendations. Continue doxycline orally on discharge for at least 14 days Pt still has thick wet cough Stable for discharge from pulmology service. (5) Influenza B: Code(s): J10.1 - Influenza due to other identified influenza virus with other respiratory manifestations Status: Acute Assessment and Plan: See above. (6) Acute respiratory failure: Qualifiers: Respiratory failure complication: hypoxia Qualified Code(s): J96.01 - Acute respiratory failure with hypoxia Code(s): J96.00 - Acute respiratory failure, unspecified whether with hypoxia or hypercapnia Status: Acute Assessment and Plan: Secondary to influenza, pnuemonia, PE will need home oxygen assessment prior to dischrage (7) Altered mental status: Qualifiers: Altered mental status type: delirium Qualified Code(s): R41.0 - Disorientation, unspecified Code(s): R41.82 - Altered mental status, unspecified Status: Acute Assessment and Plan: Multiple cormorbities ? Parkinsons Neurology consulted (8) Ulcerative colitis: Qualifiers: Ulcerative colitis location: unspecified ulcerative colitis location Digestive disease complication type: without complication Qualified Code(s): K51.90 - Ulcerative colitis, unspecified, without complications Code(s): K51.90 - Ulcerative colitis, unspecified, without complications Status: Chronic Assessment and Plan: Patient was currently undergoing a prednisone taper for UC flare-up about a month ago. CT abdomen/pelvis with no acute intra-abdominal abnormalities. Started on hydrocortisone taper (9) Stool culture positive for Clostridium difficile: Code(s): R19.5 - Other fecal abnormalities Status: Acute Assessment and Plan: Completed 10 day course of Fidaxomicin and has no further diarrhea or signs of infection (10) Hypertension: Qualifiers: Hypertension type: essential hypertension Qualified Code(s): I10 - Essential (primary) hypertension Code(s): I10 - Essential (primary) hypertension Status: Chronic Assessment and Plan: History of BP ' Discuused with cadiology can follow with them on discharge. (11) Cirrhosis: Qualifiers: Hepatic cirrhosi
[2019-09-22] MEDS: ACETAMINOPHEN 325 MG TABLET 650 MG PO (13:12)
[2019-09-23] VITALS (8 sets, daily range): BP systolic 106–152; BP diastolic 67–91; PULSE 62–105; RESP 18–24; TEMP 35.9–36.3; O2SAT 92–100
[2019-09-23] MEDS: IPRATROPIUM BR 0.02% INH SOLN 0.5 MG/2.5 ML VIAL INHALATION ×4 (03:07→14:29)
[2019-09-23] MEDS: LEVALBUTEROL NEB 1.25 MG/3 ML 0.63 MG INHALATION ×3 (03:07→14:21)
[2019-09-23 05:52] LABS: Hematocrit 26.6 % (42.0-52.0); Hemoglobin 8.2 g/dL (14.0-18.0); Mean Corpuscular HGB Conc 30.8 g/dl (32-36); Mean Corpuscular Volume 97.4 fl (80-100); Mean Platelet Volume 11.4 fl (7.4-10.4); Platelet Count Result 168 k/mm3 (150-375); Red Blood Count 2.73 M/mm3 (4.6-6.20); Red Cell Distribution Width 17.8 % (11.5-14.5); White Blood Count 7.3 K/mm3 (4.5-10.0)
[2019-09-23 06:05] LABS: Blood Urea Nitrogen 26 mg/dL (9-20); Carbon Dioxide 35 mmol/L (22-30); Chloride 99 mmol/L (98-107); Estimated CRCL calculation 64 ml/min; Estimated Glomerular Filt Rate > 60; Glucose 125 mg/dL (75-110); Potassium 3.4 mmol/L (3.4-5.0); Sodium 140 mmol/L (137-145)
[2019-09-23] MEDS: APIXABAN 5 MG TABLET 10 MG PO (07:58)
[2019-09-23] MEDS: ASPIRIN 81 MG CHEWABLE TABLET PO (07:58)
[2019-09-23] MEDS: FAMOTIDINE 20 MG TABLET PO (07:58)
[2019-09-23] MEDS: CYANOCOBALAMIN 1,000 MCG TABLET 1000 MCG PO (07:58)
[2019-09-23] MEDS: FOLIC ACID 1 MG TABLET PO (07:59)
[2019-09-23] MEDS: GABAPENTIN 300 MG CAPSULE 600 MG PO (07:59)
[2019-09-23] MEDS: HYDROCORTISONE 10 MG TABLET 20 MG PO (07:59)
[2019-09-23] MEDS: MESALAMINE 400 MG DELAYED RELEASE CAPSULE 800 MG PO ×2 (07:59→12:42)
[2019-09-23] MEDS: LOSARTAN POTASSIUM 50 MG TABLET PO (07:59)
[2019-09-23] MEDS: DORNASE ALFA INH SOLN 1 MG/ML 2.5 ML AMP 2.5 MG INHALATION (08:40)
--- NOTE | 2019-09-23 15:42 | PCPTNOTE ---
The PT treatment was unable to be completed today. Will continue per Plan of Care frequency and duration.
--- NOTE | 2019-09-23 18:58 | PM.DS ---
DS: Diagnosis Admitting Diagnosis Admitting Diagnosis: Influenza due to other identified influenza virus with other respiratory manifestations Discharge Diagnosis (1) Acute respiratory failure: Qualifiers: Respiratory failure complication: hypoxia Qualified Code(s): J96.01 - Acute respiratory failure with hypoxia Code(s): J96.00 - Acute respiratory failure, unspecified whether with hypoxia or hypercapnia Status: Acute Assessment and Plan: Date of Service 09/23/19 Mr. Wakefield is an 79yo M with history of ulcerative colitis, hypertension, and cirrhosis who presented to the ED 09/05/19 for evaluation of cough, wheezing, and generalized body aches. He was treated here for acute respiratory failure secondary to influenza and pneumonia; orthostatic hypotension; transient episodes of decreased awareness; and pulmonary embolism. He was hemodynamically stable for discharge to [facility] swing bed for rehabilitation to continue PT/OT on 09/23/19. Mr. Wakefield was found to be Influenza B positive in the ED. Imaging showed bilateral pulmonary infiltrates. He was treated initially with Tamiflu, antibiotic therapy with azithromycin (5 days) and cephalosporin (initially with Rocephin x 3 days then Ceftaroline x4 days); IV Solu-Medrol which was later transitioned to oral prednisone; nebulized bronchodilators with atrovent and albuterol; pulmozyme; and Cornet PEP therapy. He required supplemental oxygen throughout the admission, initially requiring 6L/min then down to 1 and 2 L nasal cannula at time of discharge. Without much improvement, pulmonology was consulted and he was seen by Dr Martinez. Repeat imaging across his admission with chest XRs continued to show persistent bilateral infiltrates involving left mid and both lower lung zones. He underwent bronchoscopy 09/20/19 which revealed moderate white bubbly secretions in most segments which were washed and suctioned. He was later restarted on oral doxycycline 09/14 by pulmonology since he was not improving. On two different occasions (09/13 and 09/14), Mr. Wakefield was sitting up in the bedside chair and was noted to have decreased level of awareness, and although he was awake he was not verbally responding. On both occasions, once he was transferred back into bed and supine, he regained awareness and would be back near his baseline cognitively. Brain CT and MRI showed chronic age-related findings with no acute findings. Neurology was consulted and he was seen by Dr Guerra. On more than one occasion, his blood pressure when sitting was 70s-80s/30s-40s. It was felt that orthostatic hypotension may have been contributing to these episodes and he was started on hydrocortisone. He did have episodes of increased confusion that would wax and wane. He did not always sleep well and his noted that he seemed to be acting out his dreams while he was awake and may have been hallucinating. This initially improved once Tamiflu was stopped. He did still continue to have episodes of confusion, arguing he may have early signs of dementia and hospital delirium. Persistently hypoxic, CTA chest was performed 09/14 which revealed a small right-sided pulmonary embolism, venous dopplers showed left soleus and saphenous DVT. He was started on Eliquis 10mg BID x 7 days then 5mg BID. Suggest treating PE for no longer than 3 months with Eliquis due to increased risk for GI bleeding given his history of pancolitis. Prior to his arrival, he had followed with Dr Hewitt due to his history of colitis. He had recently had a flare up and had been on a long steroid taper. He reported nonbloody diarrhea in the 2 days prior to arrival and the first day of his admission. Stool cultures were obtained at that time but then his diarrhea resolved. His stool was positive for C diff. He was no longer having diarrhea. He was treated with a 10 day course of Fidaxamicin due to his immunocompromised state. He continued to work with PT/OT due
== END 2019-09-23 16:10 | disposition swing bed (61) | DRG 193 ==
LOC: ANHED 14:31 → ANH2MED 15:31
PROVIDERS: Emergency Medicine; Family Medicine; Internal Medicine Critical Care Medicine; Physician Assistant; Admitting Provider Family Medicine; Emergency Provider Emergency Medicine; PCP Internal Medicine; Visit Provider Physician Assistant
PROC: 0BJ08ZZ Inspection of Tracheobronchial Tree, Via Natural or Artificial Opening Endoscopic (ICD-10-PCS; CPT 31622; principal; 2019-09-20 10:30)
DX: J10.01 Influenza due to other identified influenza virus with the same other identified influenza virus pneumonia (principal); J96.01 Acute respiratory failure with hypoxia; G92 Toxic encephalopathy; I26.99 Other pulmonary embolism without acute cor pulmonale; K51.90 Ulcerative colitis, unspecified, without complications; I82.812 Embolism and thrombosis of superficial veins of left lower extremity; I82.462 Acute embolism and thrombosis of left calf muscular vein; J18.9 Pneumonia, unspecified organism; I10 Essential (primary) hypertension; Z98.41 Cataract extraction status, right eye; Z98.42 Cataract extraction status, left eye; K21.9 Gastro-esophageal reflux disease without esophagitis; M19.90 Unspecified osteoarthritis, unspecified site; Z87.891 Personal history of nicotine dependence; J98.01 Acute bronchospasm; G62.9 Polyneuropathy, unspecified; T37.5X5A Adverse effect of antiviral drugs, initial encounter; R41.0 Disorientation, unspecified; G47.419 Narcolepsy without cataplexy; G47.33 Obstructive sleep apnea (adult) (pediatric); Z79.82 Long term (current) use of aspirin; K74.69 Other cirrhosis of liver; I95.1 Orthostatic hypotension; F03.90 Unspecified dementia, unspecified severity, without behavioral disturbance, psychotic disturbance, mood disturbance, and anxiety
CPT/HCPCS: 36415; 36600; 70450; 70551; 71046; 71275; 74176; 80048; 80053; 80202; 81001; 82140; 82375; 82805; 83050; 83605; 83690; 83735; 84100; 84443; 85014; 85018; 85025; 85027; 85055; 85610; 87015; 87040; 87045; 87046; 87070; 87102; 87106; 87116; 87205; 87206; 87324; 87427; 87449; 87804; 87899; 93005; 93306; 93880; 93970; 94640; 94660; 94667; 94669; 96361; 96365; 97110; 97116; 97162; 97164; 97165; 97168; 97530; 97535; 99285; A9270; J0131; J0360; J0456; J0696; J0712; J1650; J1720; J1940; J2060; J2920; J2930; J3370; J7030; J7040; J7060; J7120; J7512; Q9967

== ENCOUNTER 2019-09-23 16:56 | Inpatient (IN) | payer MEDICARE, SELFPAY ==
--- NOTE | ~2019-09-23 | XR_ITS ---
EXAMINATION: XR chest 2V DATE: 09/24/2019 09:02 INDICATION: Edema. TECHNIQUE: Frontal and lateral views of the chest were obtained on 3 radiographs. COMPARISON: Chest 2 views 09/19/2019, chest CT 09/14/2019 FINDINGS: Again seen is elevation of right hemidiaphragm. There is mild atelectasis at right lung bas e, likely atelectasis. There are airspace opacities in left mid and lower lung zones. No pleural effu juhi or pneumothorax. The heart size is normal. IMPRESSION: 1. Airspace opacities in left mid and lower lung zones with slight improvement, consistent with atele ctasis versus pneumonia. 2. Chronic elevation of right hemidiaphragm with mild atelectasis at right lung base. Reviewed, dictated and finalized at location A. CIATE PRODUCER IMPRESSION: 1. Airspace opacities in left mid and lower lung zones with slight improvement, consistent with atelectasis versus pneumonia. 2. Chronic elevation of right hemidiaphragm with mild atelectasis at right lung base.
--- NOTE | ~2019-09-23 | US_ITS ---
US retroperitoneal comp 10/01/2019 16:47 Procedure: Realtime transabdominal ultrasound of the kidneys and bladder. Indication: Hematuria. History of renal stones and cysts. Comparison: No prior studies for comparison. Findings: Increased renal cortical echotexture bilaterally with decreased cortical medullary differen tiation, consistent with chronic medical renal disease. There are multiple bilateral renal cysts, lar gest on the right measuring 5.2 cm in largest on the left measuring 3 cm. The right kidney measures 1 3.5 cm and left kidney measures 11.5 cm. Bladder within normal limits. Impression: 1: Increased renal cortical echotexture bilaterally, consistent with chronic medical renal disease. 2: Bilateral renal cysts. Reviewed, dictated and finalized at location B. PURSER Impression: 1: Increased renal cortical echotexture bilaterally, consistent with chronic me dical renal disease. 2: Bilateral renal cysts.
[2019-09-23 17:30] VITALS: BP 121/71; PULSE 76; RESP 18; TEMP 36.5; O2SAT 92; BMI 24.3
[2019-09-23 18:10] VITALS: PULSE 76; RESP 18; O2SAT 92
--- NOTE | 2019-09-23 18:11 | PM.IMHP ---
H&P: HPI History of Present Illness Chief complaint: Rehab <KAITLIN Fernandes - Last Filed: 09/24/19 13:36> Narrative: Alex Wakefield II is a 79 year old male Melanie was admitted to [facility] for acute respiratory failure, pneumonia, influenza, orthostatic hypertension and a recent PE patient has a past medical history bilateral cataract extraction, cirrhosis of the liver, GERD, hypertension, UC, OA, peripheral neuropathy and umbilical hernia. While he was hospitalized patient had 2 episodes of unresponsiveness neuro was consulted and imaging negative. patient also was treated for influenza and pneumonia with antibiotics and antiviral medication. Infectious Disease was also consulted, along with cardiology, andpulmonologist. His unresponsiveness was linked to orthostatic hypertension and he was treated with hydrocortisone for this condition he he had also developed a PE and is currently being treated with Eliquis. Patient admitted in swing bed for rehabilitation due to decreased balance decreased mobility in severe limited function endurant and/or mobility. <KAITLIN Fernandes - Last Filed: 09/24/19 13:36> Review of Systems Constitutional: Constitutional: Denies body ache(s), Reports fatigue, Denies headache(s) and Reports weakness <KAITLIN Fernandes - Last Filed: 09/24/19 13:36> Cardiovascular: Cardiovascular: Reports no additional cardiovascular complaints, Denies chest pain at rest, Reports leg edema, Denies lightheadedness, Denies dyspnea on exertion and Denies orthopnea <KAITLIN Fernandes - Last Filed: 09/24/19 13:36> Respiratory: Respiratory: Reports cough and Denies dyspnea <KAITLIN Fernandes - Last Filed: 09/24/19 13:36> Gastrointestinal: Gastrointestinal: Reports no additional gastrointestinal complaints, Denies diarrhea, Denies nausea and Denies vomiting <KAITLIN Fernandes - Last Filed: 09/24/19 13:36> Genitourinary: Genitourinary: Reports no additional male genitourinary complaints <KAITLIN Fernandes - Last Filed: 09/24/19 13:36> Integumentary/Breasts: Skin/Breast: Reports other ( upper extremity bilateral bruising) <KAITLIN Fernandes - Last Filed: 09/24/19 13:36> Neurologic: Reports confusion, Denies vertigo, Denies dizziness and Denies syncope <KAITLIN Fernandes - Last Filed: 09/24/19 13:36> Psychiatric: Psychiatric: Denies anxiety and Reports confusion <KAITLIN Fernandes - Last Filed: 09/24/19 13:36> [facility] Social History Social History: Social History Social History: Patient lives in were known OA with his . He is a nonsmoker and quit drinking alcohol and smoking cigarettes 40 years ago. His surrogate decision maker would be his Glo. Smoking packs per day: 2 Smoking cigarettes per day: 40.0 Years smoked: 25 Smoking pack-years: 50.00 Smoking status: Former smoker Tobacco type: cigarettes Alcohol intake: former Substance use: never Substance use type: does not use Gender identity (if verbalized by the patient): Male Spiritual care concerns: No Agree to blood products: Yes <KAITLIN Fernandes - Last Filed: 09/24/19 13:36> Meds Home Medications and Allergies Home medications: Home Medications Medication Instructions Recorded Confirmed Type Prolia 60 mg SUBCUT [id number] 09/05/19 09/23/19 History acetaminophen [Tylenol Arthritis 650 mg PO Q8H PRN 09/05/19 09/23/19 History Pain] aspirin 81 mg PO DAILY 09/05/19 09/23/19 History azathioprine 150 mg PO DAILY 09/05/19 09/23/19 History carvedilol [Coreg] 3.125 mg PO BID 09/05/19 09/23/19 History cholecalciferol (vitamin D3) 4,000 unit PO DAILY 09/05/19 09/23/19 History [Vitamin D3] cyanocobalamin (vitamin B-12) 1,000 mcg PO DAILY 09/05/19 09/23/19 History [Vitamin B-12] folic acid 1 mg PO DAILY 09/05/19 09/23/19 History gabapentin 600 mg PO DAILY 09/05/19 0
[2019-09-23 18:26] LABS: Hematocrit 27.4 % (37.0-46.0); Hemoglobin 8.4 g/dL (12.4-15.3); Mean Corpuscular HGB Conc 30.7 g/dL (32.0-36.0); Mean Corpuscular Hemoglobin 30.1 pg (27.0-31.0); Mean Corpuscular Volume 98.2 fL (78.0-102.0); Mean Platelet Volume 11.3 fl (8.7-11.0); Platelet Count Result 183 K/mm3 (150-420); Red Blood Count 2.79 M/mm3 (4.70-6.10); Red Cell Distribution Width 17.4 % (11.6-14.4); White Blood Count 8.4 K/mm3 (4.8-10.8)
[2019-09-23 18:38] LABS: Anion Gap 9.6 mmol/L (7-16); Blood Urea Nitrogen 29 mg/dL (7-18); Carbon Dioxide 34 mmol/L (21-32); Chloride 106 mmol/L (98-108); Estimated CRCL calculation 52 ml/min; Estimated Glomerular Filt Rate > 60; Glucose 124 mg/dL (70-99); Osmolality Calculated 308 mOsm/kg (285-295); Potassium 3.6 mmol/L (3.5-5.1); Sodium 146 mmol/L (136-145)
[2019-09-23] MEDS: ACETAMINOPHEN 500 MG TABLET 1000 MG PO (19:15)
[2019-09-23] MEDS: HYDROCORTISONE 10 MG TABLET 20 MG PO (19:42)
--- NOTE | 2019-09-23 19:47 | PC.NURSE ---
1800 order for hydrocortisine and tylenol given. MAR would scan tylenol or accept medication given documentation.
[2019-09-23] MEDS: FAMOTIDINE 20 MG TABLET PO (20:31)
[2019-09-24] VITALS (7 sets, daily range): BP systolic 121–134; BP diastolic 57–74; PULSE 76–90; RESP 16–24; TEMP 36.3–36.7; O2SAT 96
[2019-09-24 05:35] LABS: Hematocrit 26.3 % (37.0-46.0); Hemoglobin 8.1 g/dL (12.4-15.3); Mean Corpuscular HGB Conc 30.8 g/dL (32.0-36.0); Mean Corpuscular Hemoglobin 29.7 pg (27.0-31.0); Mean Corpuscular Volume 96.3 fL (78.0-102.0); Mean Platelet Volume 11.3 fl (8.7-11.0); Platelet Count Result 163 K/mm3 (150-420); Red Blood Count 2.73 M/mm3 (4.70-6.10); Red Cell Distribution Width 17.4 % (11.6-14.4); White Blood Count 6.4 K/mm3 (4.8-10.8)
[2019-09-24 05:45] LABS: BNP 166 pg/mL (0-100); INR 1.2; Prothrombin Time 12.7 Seconds (9.64-11.0)
[2019-09-24] MEDS: HYDROCORTISONE 10 MG TABLET 20 MG PO ×2 (05:47→17:42)
[2019-09-24 05:56] LABS: Lactic Acid 1.1 mmol/L (0.4-2.0)
[2019-09-24 06:08] LABS: Alanine Aminotransferase 17 U/L (16-63); Albumin Level 1.6 g/dL (3.4-5.0); Alkaline Phosphatase 55 U/L (46-116); Anion Gap 8.8 mmol/L (7-16); Aspartate Amino Transferase 23 U/L (15-37); Bilirubin,Total 0.3 mg/dL (0.00-1.00); Blood Urea Nitrogen 30 mg/dL (7-18); Calcium 8.4 mg/dL (8.5-10.1); Carbon Dioxide 34 mmol/L (21-32); Chloride 108 mmol/L (98-108); Creatine Kinase 67 U/L (39-308); Estimated CRCL calculation 53 ml/min; Estimated Glomerular Filt Rate > 60; Glucose 120 mg/dL (70-99); Magnesium 1.7 mg/dL (1.8-2.4); Osmolality Calculated 311 mOsm/kg (285-295); Potassium 3.8 mmol/L (3.5-5.1); Sodium 147 mmol/L (136-145); Total Protein 4.6 g/dL (6.4-8.2)
[2019-09-24 06:09] LABS: Ammonia < 10 umol/L (11-32)
--- NOTE | 2019-09-24 08:00 | ECG_ITS ---
Measurements Intervals Duncan Rate: 86 P: OK: 0 QRS: 0 QRSD: 98 T: 20 QT: 368 QTc: 441 Interpretive Statements SINUS RHYTHM VENTRICULAR PREMATURE COMPLEX RSR' IN V1 OR V2, CONSIDER RIGHT VENTRICULAR HYPERTROPHY OR RIGHT VCD MINIMAL Q WAVES- LATERAL LEADS BORDERLINE ST-T WAVE ABNORMALITY- ANT/INF LEADS BASELINE WANDER- V3 BORDERLINE ECG Electronically Signed On 09-24-2019 8:00:51 AUDITING SPECIALIST by Nolan Valladares D.O.
[2019-09-24] MEDS: CHOLECALCIFEROL 1,000 UNIT TABLET 4000 UNITS PO (09:54)
[2019-09-24] MEDS: CYANOCOBALAMIN 1,000 MCG TABLET 1000 MCG PO (09:55)
[2019-09-24] MEDS: LOSARTAN POTASSIUM 50 MG TABLET 100 MG PO (09:55)
[2019-09-24] MEDS: FOLIC ACID 1 MG TABLET PO (09:55)
[2019-09-24] MEDS: POLYSACCHARIDE IRON COMPLEX 150 MG CAPSULE 450 MG PO (09:56)
[2019-09-24] MEDS: ASPIRIN 81 MG CHEWABLE TABLET PO (09:56)
[2019-09-24] MEDS: GABAPENTIN 300 MG CAPSULE 600 MG PO (09:56)
[2019-09-24] MEDS: APIXABAN 2.5 MG TABLET 10 MG PO ×2 (09:56→20:27)
[2019-09-24] MEDS: MULTIVITAMINS THERAPEUTIC TAB (*BKC) 1 TABLET PO (09:56)
[2019-09-24] MEDS: FAMOTIDINE 20 MG TABLET PO ×2 (09:56→20:27)
[2019-09-24] MEDS: DOXYCYCLINE HYCLATE 100 MG TABLET PO (10:56)
[2019-09-24] MEDS: MESALAMINE 400 MG DELAYED RELEASE CAPSULE 800 MG PO ×2 (12:57→17:42)
[2019-09-24] MEDS: IPRATROPIUM 0.5 MG/ALBUTEROL SULFATE 2.5 MG AMPUL.NEB 3 ML INHALATION ×2 (14:45→22:38)
[2019-09-24] MEDS: MAGNESIUM OXIDE 400 MG TABLET PO (15:18)
--- NOTE | 2019-09-24 23:42 | PC.NURSE ---
pt attempting to get oob without assist. states get me down when inquired about where he wanted to go, he stated rehab. Informed patient the time of night, remains confused and unable to comprehend why he cannot go to rehab at this time.
[2019-09-25] VITALS (11 sets, daily range): BP systolic 118–137; BP diastolic 68–76; PULSE 78–92; RESP 18–22; TEMP 35.8–36.4; O2SAT 93–96
[2019-09-25] MEDS: IPRATROPIUM 0.5 MG/ALBUTEROL SULFATE 2.5 MG AMPUL.NEB 3 ML INHALATION ×3 (05:50→21:31)
[2019-09-25] MEDS: HYDROCORTISONE 10 MG TABLET 20 MG PO ×2 (06:01→17:10)
[2019-09-25] MEDS: ACETAMINOPHEN 500 MG TABLET 1000 MG PO (07:59)
--- NOTE | 2019-09-25 08:02 | PC.NURSE ---
Tylenol given for arthritis pain, generalized, states usually takes every am, oriented to person and place, confused to time, now at the bedside, able to swallow without difficulty
[2019-09-25] MEDS: MESALAMINE 400 MG DELAYED RELEASE CAPSULE 800 MG PO ×3 (09:24→17:10)
[2019-09-25] MEDS: CHOLECALCIFEROL 1,000 UNIT TABLET 4000 UNITS PO (09:25)
[2019-09-25] MEDS: LOSARTAN POTASSIUM 50 MG TABLET 100 MG PO (09:26)
[2019-09-25] MEDS: CYANOCOBALAMIN 1,000 MCG TABLET 1000 MCG PO (09:26)
[2019-09-25] MEDS: APIXABAN 2.5 MG TABLET 10 MG PO ×2 (09:27→21:30)
[2019-09-25] MEDS: MULTIVITAMINS THERAPEUTIC TAB (*BKC) 1 TABLET PO (09:28)
[2019-09-25] MEDS: GABAPENTIN 300 MG CAPSULE 600 MG PO (09:28)
[2019-09-25] MEDS: FOLIC ACID 1 MG TABLET PO (09:28)
[2019-09-25] MEDS: FAMOTIDINE 20 MG TABLET PO ×2 (09:28→21:30)
[2019-09-25] MEDS: ASPIRIN 81 MG CHEWABLE TABLET PO (09:29)
[2019-09-25] MEDS: DOXYCYCLINE HYCLATE 100 MG TABLET PO (09:29)
--- NOTE | 2019-09-25 11:30 | PC.NURSE ---
Sit to stand used to get patient from bed to chair, tolerated fair, feels as if will fall, is able to bear some weight, in chair with legs elevated, at the bedside
--- NOTE | 2019-09-25 14:05 | PC.NURSE ---
in chair, denies needs, used urinal with assisting, voided 25ml of tea colored urine, fluids offerred and takes well
--- NOTE | 2019-09-25 15:56 | PC.NURSE ---
Remains in chair at this time, denies needs, occassional loose cough continues, at the bedside
--- NOTE | 2019-09-25 17:56 | PC.NURSE ---
Sit to stand used to get from chair to BSC, did not tolerate well, unable to straighten up to stand position wihtout assist
--- NOTE | 2019-09-25 17:58 | PC.NURSE ---
right arm edema weeping at this time, clear fluid
--- NOTE | 2019-09-25 18:22 | PC.NURSE ---
noted when toileting to have 2 small open areas above left buttock, cleansed and cream aplpied
[2019-09-26] VITALS (8 sets, daily range): BP systolic 126–162; BP diastolic 74–90; PULSE 78–92; RESP 18–20; TEMP 36.3; O2SAT 94
[2019-09-26] MEDS: IPRATROPIUM 0.5 MG/ALBUTEROL SULFATE 2.5 MG AMPUL.NEB 3 ML INHALATION ×3 (05:49→21:56)
[2019-09-26] MEDS: HYDROCORTISONE 10 MG TABLET 20 MG PO ×2 (05:58→17:15)
[2019-09-26] MEDS: ACETAMINOPHEN 500 MG TABLET 1000 MG PO (07:45)
--- NOTE | 2019-09-26 07:53 | PC.NURSE ---
Sit to stand used to get from bed to chair, was able to bear weight and support self better this am, confusion continues but is able to re orient well, more alert and oriented with at the bedside, tylenol given for hip pain
--- NOTE | 2019-09-26 09:10 | PC.NURSE ---
AM meds given, remains in chair, legs now elevated, pillows for comfort, denies wish to go back to bed at this time
[2019-09-26] MEDS: MESALAMINE 400 MG DELAYED RELEASE CAPSULE 800 MG PO ×3 (09:24→17:15)
[2019-09-26] MEDS: ASPIRIN 81 MG CHEWABLE TABLET PO (09:25)
[2019-09-26] MEDS: APIXABAN 2.5 MG TABLET 10 MG PO ×2 (09:25→21:55)
[2019-09-26] MEDS: CHOLECALCIFEROL 1,000 UNIT TABLET 4000 UNITS PO (09:25)
[2019-09-26] MEDS: CYANOCOBALAMIN 1,000 MCG TABLET 1000 MCG PO (09:26)
[2019-09-26] MEDS: DOXYCYCLINE HYCLATE 100 MG TABLET PO (09:26)
[2019-09-26] MEDS: MULTIVITAMINS THERAPEUTIC TAB (*BKC) 1 TABLET PO (09:27)
[2019-09-26] MEDS: GABAPENTIN 300 MG CAPSULE 600 MG PO (09:27)
[2019-09-26] MEDS: LOSARTAN POTASSIUM 50 MG TABLET 100 MG PO (09:27)
[2019-09-26] MEDS: FOLIC ACID 1 MG TABLET PO (09:27)
[2019-09-26] MEDS: FAMOTIDINE 20 MG TABLET PO ×2 (09:27→21:55)
[2019-09-26] MEDS: POLYSACCHARIDE IRON COMPLEX 150 MG CAPSULE 450 MG PO (09:28)
--- NOTE | 2019-09-26 10:11 | PC.NURSE ---
would like patient to remain in chair at this time, resting comfortable at this time, oxygen on at 1.5L NC
--- NOTE | 2019-09-26 11:30 | PC.NURSE ---
In chair sleeping, no distress noted
--- NOTE | 2019-09-26 12:27 | PC.NURSE ---
assisted with tray set up, patient is able to feed himself,
--- NOTE | 2019-09-26 13:24 | PC.NURSE ---
Wishes to stay in chair, offered to get back to bed, denies, states ok here
--- NOTE | 2019-09-26 17:17 | PC.NURSE ---
Eating dinner, loose cough continues, able to feed self once tray is set up, no change in edema to upper and lower extremities, remains in chair as per his wishes, at the bedside
[2019-09-27] VITALS (9 sets, daily range): BP systolic 120–162; BP diastolic 75–97; PULSE 84–95; RESP 16–28; TEMP 36.3–37.2; O2SAT 94–96
--- NOTE | 2019-09-27 03:32 | PC.NURSE ---
pt sleeping, respirations even and regular, no evidence of distress noted, call light and belongings within reach.
[2019-09-27] MEDS: HYDROCORTISONE 10 MG TABLET 20 MG PO ×2 (05:17→17:47)
[2019-09-27] MEDS: IPRATROPIUM 0.5 MG/ALBUTEROL SULFATE 2.5 MG AMPUL.NEB 3 ML INHALATION ×3 (05:36→22:37)
--- NOTE | 2019-09-27 07:38 | PC.NURSE ---
Therapy in to work with patient
--- NOTE | 2019-09-27 08:15 | PC.NURSE ---
Up in chair eating breakfast
--- NOTE | 2019-09-27 09:02 | PC.NURSE ---
Up from commode, stood to get washed up, had to sit back down prior to getting back to chair, sat for a few minutes, then able to stand with 2 assist and gait belt, back to cahir, legs elevated in chair, padded with pillows, tolerated fair
[2019-09-27] MEDS: LOSARTAN POTASSIUM 50 MG TABLET 100 MG PO (09:13)
[2019-09-27] MEDS: CHOLECALCIFEROL 1,000 UNIT TABLET 4000 UNITS PO (09:13)
[2019-09-27] MEDS: CYANOCOBALAMIN 1,000 MCG TABLET 1000 MCG PO (09:13)
[2019-09-27] MEDS: MESALAMINE 400 MG DELAYED RELEASE CAPSULE 800 MG PO ×3 (09:13→17:47)
[2019-09-27] MEDS: GABAPENTIN 300 MG CAPSULE 600 MG PO (09:14)
[2019-09-27] MEDS: MULTIVITAMINS THERAPEUTIC TAB (*BKC) 1 TABLET PO (09:15)
[2019-09-27] MEDS: ACETAMINOPHEN 500 MG TABLET 1000 MG PO ×2 (09:15→18:28)
[2019-09-27] MEDS: ASPIRIN 81 MG CHEWABLE TABLET PO (09:15)
[2019-09-27] MEDS: APIXABAN 2.5 MG TABLET 5 MG PO ×2 (09:16→20:40)
[2019-09-27] MEDS: FAMOTIDINE 20 MG TABLET PO ×2 (09:16→20:41)
[2019-09-27] MEDS: FOLIC ACID 1 MG TABLET PO (09:16)
[2019-09-27] MEDS: DOXYCYCLINE HYCLATE 100 MG TABLET PO (09:16)
--- NOTE | 2019-09-27 11:05 | PC.NURSE ---
Napping in chair, no evidence of pain noted
--- NOTE | 2019-09-27 11:13 | PC.NURSE ---
OT in to work with patient
--- NOTE | 2019-09-27 13:07 | PC.NURSE ---
Remains in chair and elevated legs after lunch iwth pillows for padding
--- NOTE | 2019-09-27 13:21 | PC.NURSE ---
tramadol given for pain in buttock region, repositioned for comfort, advised if no relief would get patient back in to bed
[2019-09-28] VITALS (10 sets, daily range): BP systolic 100–165; BP diastolic 66–102; PULSE 83–96; RESP 16–20; TEMP 36.1–36.7; O2SAT 96–97
--- NOTE | 2019-09-28 00:15 | PC.NURSE ---
O2 continues 2L per nc.
[2019-09-28] MEDS: IPRATROPIUM 0.5 MG/ALBUTEROL SULFATE 2.5 MG AMPUL.NEB 3 ML INHALATION ×3 (05:38→22:44)
[2019-09-28] MEDS: HYDROCORTISONE 10 MG TABLET 20 MG PO ×2 (05:48→17:02)
--- NOTE | 2019-09-28 08:06 | PC.NURSE ---
assisted patient to sitting position on edge of bed for breakfast, assisting with setting up meal for patient
[2019-09-28] MEDS: MESALAMINE 400 MG DELAYED RELEASE CAPSULE 800 MG PO ×3 (08:28→17:02)
[2019-09-28] MEDS: CHOLECALCIFEROL 1,000 UNIT TABLET 4000 UNITS PO (08:28)
[2019-09-28] MEDS: APIXABAN 2.5 MG TABLET 5 MG PO ×2 (08:29→21:19)
[2019-09-28] MEDS: CYANOCOBALAMIN 1,000 MCG TABLET 1000 MCG PO (08:29)
[2019-09-28] MEDS: LOSARTAN POTASSIUM 50 MG TABLET 100 MG PO (08:29)
[2019-09-28] MEDS: POLYSACCHARIDE IRON COMPLEX 150 MG CAPSULE 450 MG PO (08:29)
[2019-09-28] MEDS: FOLIC ACID 1 MG TABLET PO (08:29)
[2019-09-28] MEDS: GABAPENTIN 300 MG CAPSULE 600 MG PO (08:29)
[2019-09-28] MEDS: FAMOTIDINE 20 MG TABLET PO ×2 (08:30→21:19)
[2019-09-28] MEDS: ACETAMINOPHEN 500 MG TABLET 1000 MG PO (08:30)
[2019-09-28] MEDS: MULTIVITAMINS THERAPEUTIC TAB (*BKC) 1 TABLET PO (08:30)
[2019-09-28] MEDS: DOXYCYCLINE HYCLATE 100 MG TABLET PO (08:30)
[2019-09-28] MEDS: ASPIRIN 81 MG CHEWABLE TABLET PO (08:30)
--- NOTE | 2019-09-28 10:30 | PC.NURSE ---
OT in to work with patient, present during therapy
--- NOTE | 2019-09-28 11:08 | PC.NURSE ---
PT/OT in and patient now up in chair, tolerated fair, states he did better today than yesterday
--- NOTE | 2019-09-28 11:17 | PC.NURSE ---
Legs elevated in chair, at the bedside
[2019-09-28 11:18] LABS: Hematocrit 27.3 % (37.0-46.0); Hemoglobin 8.3 g/dL (12.4-15.3); Mean Corpuscular HGB Conc 30.4 g/dL (32.0-36.0); Mean Corpuscular Hemoglobin 29.9 pg (27.0-31.0); Mean Corpuscular Volume 98.2 fL (78.0-102.0); Mean Platelet Volume 10.4 fl (8.7-11.0); Platelet Count Result 218 K/mm3 (150-420); Red Blood Count 2.78 M/mm3 (4.70-6.10); Red Cell Distribution Width 17.6 % (11.6-14.4); White Blood Count 5.8 K/mm3 (4.8-10.8)
[2019-09-28 11:30] LABS: BNP 258 pg/mL (0-100)
[2019-09-28 11:33] LABS: Alanine Aminotransferase 17 U/L (16-63); Albumin Level 1.9 g/dL (3.4-5.0); Alkaline Phosphatase 59 U/L (46-116); Anion Gap 9.2 mmol/L (7-16); Aspartate Amino Transferase 22 U/L (15-37); Bilirubin,Total 0.4 mg/dL (0.00-1.00); Blood Urea Nitrogen 24 mg/dL (7-18); Calcium 8.7 mg/dL (8.5-10.1); Carbon Dioxide 34 mmol/L (21-32); Chloride 105 mmol/L (98-108); Estimated CRCL calculation 51 ml/min; Estimated Glomerular Filt Rate > 60; Glucose 107 mg/dL (70-99); Magnesium 1.8 mg/dL (1.8-2.4); Osmolality Calculated 302 mOsm/kg (285-295); Potassium 4.2 mmol/L (3.5-5.1); Sodium 144 mmol/L (136-145); Total Protein 4.9 g/dL (6.4-8.2)
[2019-09-28 11:34] LABS: CRP 1.9 mg/dL (0.0-0.9)
--- NOTE | 2019-09-28 12:59 | PC.NURSE ---
Remains in chair, attempted to reposition for comfort, given tramadol for pain in back
--- NOTE | 2019-09-28 13:16 | PC.NURSE ---
Care conference completed
--- NOTE | 2019-09-28 14:02 | PC.NURSE ---
In chair, napping, no evidence of pain
--- NOTE | 2019-09-28 14:13 | PM.IMPN ---
Progress Note: A&P Assessment and Plan (1) Pulmonary embolism: Qualifiers: Pulmonary embolism type: single subsegmental (without acute cor pulmonale) Qualified Code(s): I26.93 - Single subsegmental pulmonary embolism without acute cor pulmonale <Maryam Galvan ROSE-C - Last Filed: 09/28/19 14:19> Code(s): I26.99 - Other pulmonary embolism without acute cor pulmonale <Maryam Galvan JEWEL HOLE ROUGH OPENER-C - Last Filed: 09/28/19 14:19> Status: Acute <Maryam Galvan JEWEL HOLE ROUGH OPENER-C - Last Filed: 09/28/19 14:19> Assessment and Plan: CTA indicates Positive for small right-sided pulmonary embolism. patient will continue Eliquis 10 mg p.o. b.i.d. for 3 days and then transition to 5 mg p.o. b.i.d. thereafter monitor patient for SOB or new chest pains <Maryam Galvan ROSE-C - Last Filed: 09/28/19 14:19> (2) Orthostatic hypotension: Code(s): I95.1 - Orthostatic hypotension <Maryam Galvan JEWEL HOLE ROUGH OPENER-C - Last Filed: 09/28/19 14:19> Status: Resolved <Maryam Galvan JEWEL HOLE ROUGH OPENER-C - Last Filed: 09/28/19 14:19> Assessment and Plan: stable patient blood pressure 130/57 continue hydrocortisone vital signs is ordered patient on precaution patient was instructed to follow-up with manager cardiovascular after discharge <Maryam Galvan ROSE-C - Last Filed: 09/28/19 14:19> (3) Acute respiratory failure: Qualifiers: Respiratory failure complication: hypoxia Qualified Code(s): J96.01 - Acute respiratory failure with hypoxia <Maryam Galvan JEWEL HOLE ROUGH OPENER-C - Last Filed: 09/28/19 14:19> Code(s): J96.00 - Acute respiratory failure, unspecified whether with hypoxia or hypercapnia <Maryam Galvan JEWEL HOLE ROUGH OPENER-C - Last Filed: 09/28/19 14:19> Status: Acute <Maryam Galvan JEWEL HOLE ROUGH OPENER-C - Last Filed: 09/28/19 14:19> Assessment and Plan: stable possibly secondary to pneumonia , influenza and/ or PE continue nebulizers patient has a sleep study appointment for 10/13/[address] [phone] continue supportive care Bronchoscopy 09/20. <CYNTHIA FernandesC - Last Filed: 09/28/19 14:19> (4) Pneumonia: Qualifiers: Laterality: unspecified laterality Lung location: unspecified part of lung Pneumonia type: due to unspecified organism Qualified Code(s): J18.9 - Pneumonia, unspecified organism <ROSE Fernandes-C - Last Filed: 09/28/19 14:19> Code(s): J18.9 - Pneumonia, unspecified organism <ROSE Fernandes-C - Last Filed: 09/28/19 14:19> Status: Acute <CYNTHIA FernandesC - Last Filed: 09/28/19 14:19> Assessment and Plan: stable continue doxycycline as ordered chest x-ray indicates Airspace opacities in left mid and lower lung zones with slight improvement, consistent with atelectasis versus pneumonia. continue nebulizer treatment will continue decongestant and cough suppressant <ROSE Fernandes-C - Last Filed: 09/28/19 14:19> (5) Influenza B: Code(s): J10.1 - Influenza due to other identified influenza virus with other respiratory manifestations <ROSE Fernandes-C - Last Filed: 09/28/19 14:19> Status: Acute <CYNTHIA FernandesC - Last Filed: 09/28/19 14:19> Assessment and Plan: completed Tamiflu resolved <ROSE Fernandes-C - Last Filed: 09/28/19 14:19> (6) Generalized weakness: Code(s): R53.1 - Weakness <ROSE Fernandes-C - Last Filed: 09/28/19 14:19> Status: Acute <ROSE Fernandes-C - Last Filed: 09/28/19 14:19> Assessment and Plan: ordered PT/OT use DME to prevent falls provide appropriate protein for healing [facility] assisted living required correctional case manager consulted <ROSE Fernandes-Janine - Last Filed: 09/28/19 14:19> (7) Cirrhosis: Qualifiers: Ascites presence: without ascite
--- NOTE | 2019-09-28 19:32 | PC.NURSE ---
pt moved from chair to bed with sit to stand and x2 assist, pt requires multiple verbal cues about hand placement and standing up, turned to right side with pillow, pillow between the legs, will stay for a bit longer
--- NOTE | 2019-09-28 23:52 | PC.NURSE ---
O2 on @ 2l per NC. Intermittent non productive cough/
--- NOTE | 2019-09-29 04:48 | P.PNCROSS_ITS ---
Event Note Event Note Event Note: Note entered for 09/28/2019 encounter. I had [id number] time with this patient, reviewed and agree with Declan Galvan's GLASS SCIENCE ENGINEER's documentation, treatment plan, and medical decision making. Pt is alert and lucid. Knows place and time. Breath sounds decreased with bibasilar rales.
--- NOTE | 2019-09-29 04:48 | PM.EVENT ---
Event Note Event Note Event Note: Note entered for 09/28/2019 encounter. I had [id number] time with this patient, reviewed and agree with Declan Galvan's GLUE SPREADING MACHINE OPERATOR's documentation, treatment plan, and medical decision making. Pt is alert and lucid. Knows place and time. Breath sounds decreased with bibasilar rales.
--- NOTE | 2019-09-29 05:14 | PC.NURSE ---
Lab here for blood draw.
[2019-09-29 05:38] LABS: Hematocrit 24.7 % (37.0-46.0); Hemoglobin 7.5 g/dL (12.4-15.3); Mean Corpuscular HGB Conc 30.4 g/dL (32.0-36.0); Mean Corpuscular Hemoglobin 29.9 pg (27.0-31.0); Mean Corpuscular Volume 98.4 fL (78.0-102.0); Mean Platelet Volume 10.7 fl (8.7-11.0); Platelet Count Result 183 K/mm3 (150-420); Red Blood Count 2.51 M/mm3 (4.70-6.10); Red Cell Distribution Width 17.7 % (11.6-14.4); White Blood Count 4.7 K/mm3 (4.8-10.8)
[2019-09-29] MEDS: HYDROCORTISONE 10 MG TABLET 20 MG PO ×2 (05:49→18:30)
[2019-09-29 05:54] LABS: Blood Urea Nitrogen 25 mg/dL (7-18); Carbon Dioxide 34 mmol/L (21-32); Chloride 109 mmol/L (98-108); Estimated CRCL calculation 52 ml/min; Estimated Glomerular Filt Rate > 60; Glucose 140 mg/dL (70-99); Osmolality Calculated 312 mOsm/kg (285-295); Sodium 148 mmol/L (136-145)
[2019-09-29] MEDS: IPRATROPIUM 0.5 MG/ALBUTEROL SULFATE 2.5 MG AMPUL.NEB 3 ML INHALATION ×3 (06:34→22:39)
[2019-09-29 06:38] VITALS: PULSE 82; RESP 20
[2019-09-29 06:47] VITALS: PULSE 82; RESP 20
[2019-09-29 08:00] VITALS: BP 104/63; PULSE 90; RESP 18; TEMP 36.1; O2SAT 98
[2019-09-29] MEDS: APIXABAN 2.5 MG TABLET 5 MG PO ×2 (09:00→20:40)
[2019-09-29] MEDS: MESALAMINE 400 MG DELAYED RELEASE CAPSULE 800 MG PO ×3 (09:01→18:30)
[2019-09-29] MEDS: GABAPENTIN 300 MG CAPSULE 600 MG PO (09:01)
[2019-09-29] MEDS: ASPIRIN 81 MG CHEWABLE TABLET PO (09:02)
[2019-09-29] MEDS: FOLIC ACID 1 MG TABLET PO (09:02)
[2019-09-29] MEDS: MULTIVITAMINS THERAPEUTIC TAB (*BKC) 1 TABLET PO (09:02)
[2019-09-29] MEDS: CYANOCOBALAMIN 1,000 MCG TABLET 1000 MCG PO (09:02)
[2019-09-29] MEDS: FAMOTIDINE 20 MG TABLET PO ×2 (09:03→20:40)
[2019-09-29] MEDS: CHOLECALCIFEROL 1,000 UNIT TABLET 4000 UNITS PO (09:03)
[2019-09-29] MEDS: DOXYCYCLINE HYCLATE 100 MG TABLET PO (09:17)
[2019-09-29] MEDS: ACETAMINOPHEN 500 MG TABLET 1000 MG PO (09:17)
[2019-09-29 15:30] VITALS: PULSE 80; RESP 20
[2019-09-29 15:45] VITALS: PULSE 80; RESP 20
[2019-09-29 16:00] VITALS: BP 138/92; PULSE 92; RESP 18; TEMP 36.2; O2SAT 96
--- NOTE | 2019-09-29 17:13 | PM.IMPN ---
Progress Note: A&P Assessment and Plan (1) Pulmonary embolism: Qualifiers: Pulmonary embolism type: single subsegmental (without acute cor pulmonale) Qualified Code(s): I26.93 - Single subsegmental pulmonary embolism without acute cor pulmonale <Verona Baxter NP - Last Filed: 09/29/19 17:27> Code(s): I26.99 - Other pulmonary embolism without acute cor pulmonale <Verona Baxter NP - Last Filed: 09/29/19 17:27> Status: Acute <Verona Baxter NP - Last Filed: 09/29/19 17:27> Assessment and Plan: CTA indicates Positive for small right-sided pulmonary embolism. patient will continue Eliquis 10 mg p.o. b.i.d. for 3 days and then transition to 5 mg p.o. b.i.d. thereafter monitor patient for SOB or new chest pains <Verona Baxter NP - Last Filed: 09/29/19 17:27> (2) Orthostatic hypotension: Code(s): I95.1 - Orthostatic hypotension <Verona Baxter NP - Last Filed: 09/29/19 17:27> Status: Resolved <Verona Baxter NP - Last Filed: 09/29/19 17:27> Assessment and Plan: stable patient blood pressures stable, but on the lower side. continue hydrocortisone vital signs is ordered patient on precaution patient was instructed to follow-up with umbrella repairer after discharge <Verona Baxter NP - Last Filed: 09/29/19 17:27> (3) Acute respiratory failure: Qualifiers: Respiratory failure complication: hypoxia Qualified Code(s): J96.01 - Acute respiratory failure with hypoxia <Verona Baxter NP - Last Filed: 09/29/19 17:27> Code(s): J96.00 - Acute respiratory failure, unspecified whether with hypoxia or hypercapnia <Verona Baxter NP - Last Filed: 09/29/19 17:27> Status: Acute <Verona Baxter NP - Last Filed: 09/29/19 17:27> Assessment and Plan: stable possibly secondary to pneumonia , influenza and/ or PE continue nebulizers patient has a sleep study appointment for 10/13/2019 with , [facility] [phone] continue supportive care Bronchoscopy 09/20. <Verona Baxter NP - Last Filed: 09/29/19 17:27> (4) Pneumonia: Qualifiers: Laterality: unspecified laterality Lung location: unspecified part of lung Pneumonia type: due to unspecified organism Qualified Code(s): J18.9 - Pneumonia, unspecified organism <Verona Baxter NP - Last Filed: 09/29/19 17:27> Code(s): J18.9 - Pneumonia, unspecified organism <Verona Baxter SENIOR WEB DEVELOPER - Last Filed: 09/29/19 17:27> Status: Acute <Verona Baxter NP - Last Filed: 09/29/19 17:27> Assessment and Plan: stable continue doxycycline as ordered chest x-ray indicates Airspace opacities in left mid and lower lung zones with slight improvement, consistent with atelectasis versus pneumonia. continue nebulizer treatment will continue decongestant and cough suppressant <Verona Baxter NP - Last Filed: 09/29/19 17:27> (5) Influenza B: Code(s): J10.1 - Influenza due to other identified influenza virus with other respiratory manifestations <Verona Baxter NP - Last Filed: 09/29/19 17:27> Status: Acute <Verona Baxter NP - Last Filed: 09/29/19 17:27> Assessment and Plan: completed Tamiflu resolved <Verona Baxter NP - Last Filed: 09/29/19 17:27> (6) Generalized weakness: Code(s): R53.1 - Weakness <Verona Baxter NP - Last Filed: 09/29/19 17:27> Status: Acute <Verona Baxter NP - Last Filed: 09/29/19 17:27> Assessment and Plan: ordered PT/OT use DME to prevent falls provide appropriate protein for healing will discharge to [facility]/ assisted living required corrections caseworker consulted very low albumin levels. <Verona Baxter NP - Last Filed: 09/29/19 17:27> (7) Cirrhosis: Qualifiers: Ascites presence: without ascites Hepatic cirrhosis type: unspecified hepatic cirrhosis
[2019-09-29 17:25] LABS: BNP 123 pg/mL (0-100)
[2019-09-29 20:43] LABS: Potassium Urine Random 45.5 mmol/L (12-62); Sodium Urine Random 15 mmol/L (20-110); Total Protein Urine Random 118.4 mg/dL (0.0-11.9)
[2019-09-29 20:44] LABS: MALB Creatinine Ratio 82.9 mg/g (0-30); Microalbumin Urine Random 147.9 mg/L
[2019-09-29 20:52] LABS: Protein Urine 1+ (Negative)
[2019-09-30] VITALS (12 sets, daily range): BP systolic 127–156; BP diastolic 76–91; PULSE 82–110; RESP 18–20; TEMP 36.1–36.7; O2SAT 92–97
[2019-09-30] MEDS: HYDROCORTISONE 10 MG TABLET 20 MG PO ×2 (05:35→16:57)
[2019-09-30] MEDS: IPRATROPIUM 0.5 MG/ALBUTEROL SULFATE 2.5 MG AMPUL.NEB 3 ML INHALATION ×3 (05:38→21:39)
--- NOTE | 2019-09-30 07:08 | PC.NURSE ---
24 hour urine collection began
[2019-09-30 07:12] LABS: Eosinophil Urine 5 % (0-0)
--- NOTE | 2019-09-30 08:07 | PC.NURSE ---
Assisted to sitting position on edge of bed, got self to left side laying, needed assistance to get feet and legs off the edge of the bed, able to steady self on his own, sets breakfast up and patient feeds self
[2019-09-30] MEDS: MESALAMINE 400 MG DELAYED RELEASE CAPSULE 800 MG PO ×3 (08:55→16:57)
[2019-09-30] MEDS: GABAPENTIN 300 MG CAPSULE 600 MG PO (08:55)
[2019-09-30] MEDS: LOSARTAN POTASSIUM 50 MG TABLET 100 MG PO (08:56)
[2019-09-30] MEDS: CHOLECALCIFEROL 1,000 UNIT TABLET 4000 UNITS PO (08:56)
[2019-09-30] MEDS: ACETAMINOPHEN 500 MG TABLET 1000 MG PO ×2 (08:57→19:14)
[2019-09-30] MEDS: FOLIC ACID 1 MG TABLET PO (08:57)
[2019-09-30] MEDS: CYANOCOBALAMIN 1,000 MCG TABLET 1000 MCG PO (08:57)
[2019-09-30] MEDS: MULTIVITAMINS THERAPEUTIC TAB (*BKC) 1 TABLET PO (08:57)
[2019-09-30] MEDS: APIXABAN 2.5 MG TABLET 5 MG PO ×2 (08:57→21:39)
[2019-09-30] MEDS: DOXYCYCLINE HYCLATE 100 MG TABLET PO (08:58)
[2019-09-30] MEDS: FAMOTIDINE 20 MG TABLET PO ×2 (08:58→21:39)
[2019-09-30] MEDS: ASPIRIN 81 MG CHEWABLE TABLET PO (08:58)
[2019-09-30 09:48] LABS: Hematocrit 25.1 % (37.0-46.0); Hemoglobin 7.7 g/dL (12.4-15.3); Mean Corpuscular HGB Conc 30.7 g/dL (32.0-36.0); Mean Corpuscular Volume 97.7 fL (78.0-102.0); Mean Platelet Volume 10.1 fl (8.7-11.0); Platelet Count Result 164 K/mm3 (150-420); Red Blood Count 2.57 M/mm3 (4.70-6.10); Red Cell Distribution Width 17.7 % (11.6-14.4); White Blood Count 4.6 K/mm3 (4.8-10.8)
[2019-09-30 09:58] LABS: BNP 143 pg/mL (0-100); INR 1.2; Prothrombin Time 12.1 Seconds (9.64-11.0)
[2019-09-30 10:03] LABS: Alanine Aminotransferase 16 U/L (16-63); Albumin Level 1.9 g/dL (3.4-5.0); Alkaline Phosphatase 61 U/L (46-116); Anion Gap 8.7 mmol/L (7-16); Aspartate Amino Transferase 21 U/L (15-37); Bilirubin,Total 0.3 mg/dL (0.00-1.00); Blood Urea Nitrogen 23 mg/dL (7-18); Calcium 8.2 mg/dL (8.5-10.1); Carbon Dioxide 33 mmol/L (21-32); Chloride 106 mmol/L (98-108); Estimated CRCL calculation 52 ml/min; Estimated Glomerular Filt Rate > 60; Glucose 141 mg/dL (70-99); Magnesium 1.8 mg/dL (1.8-2.4); Osmolality Calculated 303 mOsm/kg (285-295); Phosphorus 3.1 mg/dL (2.6-4.7); Potassium 3.7 mmol/L (3.5-5.1); Sodium 144 mmol/L (136-145); Total Protein 4.6 g/dL (6.4-8.2)
[2019-09-30 10:12] LABS: CRP 1.4 mg/dL (0.0-0.9)
--- NOTE | 2019-09-30 10:30 | PC.NURSE ---
ASsisted OT to get patient from edge of bed to standing position, contact guard assist used to get patient to wheel chair, able to take a few steps needed to get to chair, able to take a few steps back and to sit, to therapy via WC
[2019-09-30 10:53] LABS: Iron 33 ug/dL (65-175); Percent Iron Saturation 18 % (12-57)
--- NOTE | 2019-09-30 11:28 | PC.NURSE ---
returned from therapy via wheel chair, had a BM while in therapy and felt more weak today, difficulty getting from WC to Chair, had to sit multiple times, contact guard assist needed, used gait belt, in chair now with legs elevated, did return with new skin tear bruise to back of left knee
--- NOTE | 2019-09-30 12:12 | PC.NURSE ---
patient on room air oxygen at this time
[2019-09-30 12:21] LABS: Add Urine Microscopic? YES; Appearance Urine Sl Cloudy (Clear); Bilirubin Urine Negative (Negative); Blood Urine 3+ (Negative); Color Urine Amber (Yellow); Glucose Urine UA Negative (Negative); Ketones Urine Negative (Negative); Leukocyte Esterase Ur Negative LEU/UL (Negative); Nitrate Urine Negative (Negative); Protein Urine Trace (Negative); Urobilinogen Urine 0.2 mg/dL (0.2-1.0); pH Urine 5.5 (5.0-8.0)
[2019-09-30 12:25] LABS: RBC Urine >75 /hpf (0-2); Squamous Epithelial Cell Urine Occasional /hpf (Few); WBC Urine 0-3 /hpf (0-3)
[2019-09-30 12:26] LABS: Bacteria Urine 3+ /hpf; Mucus Urine Few /lpf
--- NOTE | 2019-09-30 13:42 | PM.IMPN ---
Progress Note: A&P Assessment and Plan (1) Pulmonary embolism: Qualifiers: Pulmonary embolism type: single subsegmental (without acute cor pulmonale) Qualified Code(s): I26.93 - Single subsegmental pulmonary embolism without acute cor pulmonale <Verona Baxter NP - Last Filed: 09/30/19 16:59> Code(s): I26.99 - Other pulmonary embolism without acute cor pulmonale <Verona Baxter NP - Last Filed: 09/30/19 16:59> Status: Acute <Verona Baxter NP - Last Filed: 09/30/19 16:59> Assessment and Plan: CTA indicates Positive for small right-sided pulmonary embolism. patient will continue Eliquis 10 mg p.o. b.i.d. for 3 days and then transition to 5 mg p.o. b.i.d. thereafter monitor patient for SOB or new chest pains -- denies <Verona Baxter NP - Last Filed: 09/30/19 16:59> (2) Orthostatic hypotension: Code(s): I95.1 - Orthostatic hypotension <Verona Baxter NP - Last Filed: 09/30/19 16:59> Status: Resolved <Verona Baxter NP - Last Filed: 09/30/19 16:59> Assessment and Plan: stable patient blood pressures stable continue hydrocortisone vital signs is ordered patient on bleeding and fall precaution patient was instructed to follow-up with buildings and grounds coordinator after discharge <Verona Baxter NP - Last Filed: 09/30/19 16:59> (3) Acute respiratory failure: Qualifiers: Respiratory failure complication: hypoxia Qualified Code(s): J96.01 - Acute respiratory failure with hypoxia <Verona Baxter NP - Last Filed: 09/30/19 16:59> Code(s): J96.00 - Acute respiratory failure, unspecified whether with hypoxia or hypercapnia <Verona Baxter NP - Last Filed: 09/30/19 16:59> Status: Acute <Verona Baxter NP - Last Filed: 09/30/19 16:59> Assessment and Plan: IMPROVED. RESOLVED. possibly secondary to pneumonia , influenza and/ or PE continue nebulizers patient has a sleep study appointment for 10/13/2019 with , [facility] [phone] continue supportive care Bronchoscopy 09/20. <Verona Baxter NP - Last Filed: 09/30/19 16:59> (4) Pneumonia: Qualifiers: Laterality: unspecified laterality Lung location: unspecified part of lung Pneumonia type: due to unspecified organism Qualified Code(s): J18.9 - Pneumonia, unspecified organism <Verona Baxter NP - Last Filed: 09/30/19 16:59> Code(s): J18.9 - Pneumonia, unspecified organism <Verona Baxter NP - Last Filed: 09/30/19 16:59> Status: Acute <Verona Baxter NP - Last Filed: 09/30/19 16:59> Assessment and Plan: RESOLVED. doxycycline discontinued after 17 days of dosing. able to wean to room air today, ABG ordered for 3-4 hours after wean to verify pH and approriate Oxygenation. continue nebulizer treatment will continue decongestant and cough suppressant <Verona Baxter NP - Last Filed: 09/30/19 16:59> (5) Influenza B: Code(s): J10.1 - Influenza due to other identified influenza virus with other respiratory manifestations <Verona Baxter NP - Last Filed: 09/30/19 16:59> Status: Acute <Verona Baxter NP - Last Filed: 09/30/19 16:59> Assessment and Plan: completed Tamiflu resolved <Verona Baxter NP - Last Filed: 09/30/19 16:59> (6) Generalized weakness: Code(s): R53.1 - Weakness <Verona Baxter NP - Last Filed: 09/30/19 16:59> Status: Acute <Verona Baxter NP - Last Filed: 09/30/19 16:59> Assessment and Plan: ordered PT/OT use DME to prevent falls provide appropriate protein for healing will discharge to correction/ assisted living required rn field case manager consulted very low albumin levels. <Verona Baxter NP - Last Filed: 09/30/19 16:59> (7) Cirrhosis: Qualifiers: Ascites presence: without ascites Hepatic cirrhosis type: unspecified hepatic cirrhosis [place]
[2019-09-30] MEDS: IRON SUCROSE COMPLEX 200 MG in SODIUM CHLORIDE 0.9% IV 50 ML 120 MG IVPB (13:53)
[2019-09-30] MEDS: PHARMACIST COMMUNICATION ORDER 1 EACH XX (13:55)
--- NOTE | 2019-09-30 14:08 | PC.NURSE ---
In chair with legs elevated, denies needs needs, at the bedside, venofir infusing
[2019-09-30 14:12] LABS: Ferritin 382 ng/mL (26-388)
--- NOTE | 2019-09-30 14:22 | PC.NURSE ---
Remains in chair napping, no distress noted, legs elevated
--- NOTE | 2019-09-30 15:27 | PC.NURSE ---
BHAKTI from therapy is in working with pt
[2019-09-30 15:59] LABS: Base Excess ABG 3.5 mmol/L (0-2); HCO3 ABG 27.4 mmol/L (23-29); Oxygen Saturation ABG 95.1 % (95-97); Oxyhemoglobin 94.9 % (94-100); PCO2 ABG 38.6 mmHg (35-45); PO2 ABG 76.3 mmHg (75-85); Total Hemoglobin 8.9 g/dL; pH ABG 7.47 (7.35-7.45)
[2019-09-30 16:01] LABS: Device ROOM AIR; Modified Allen's Test Pass; Site Drawn RIGHT RADIAL
--- NOTE | 2019-09-30 18:54 | PC.NURSE ---
pt resting in chair, legs elevated, in room, appears to be sleeping, no s/sx of distress
--- NOTE | 2019-09-30 22:34 | PC.NURSE ---
pt sitting up in bed, asks where everett is, covered back up with blanket, call light on lap
[2019-10-01] VITALS (11 sets, daily range): BP systolic 130–151; BP diastolic 70–90; PULSE 80–99; RESP 16–20; TEMP 35.8–36.7; O2SAT 92–93
[2019-10-01] MEDS: IPRATROPIUM 0.5 MG/ALBUTEROL SULFATE 2.5 MG AMPUL.NEB 3 ML INHALATION ×3 (05:33→21:36)
[2019-10-01] MEDS: HYDROCORTISONE 10 MG TABLET 20 MG PO ×2 (06:04→17:59)
--- NOTE | 2019-10-01 07:30 | PC.NURSE ---
Therapy in to work with patient, am assessment comleted, noted by therapy increase weakness today, unable to take steps to chair, sit to stand used to assist to get to chair for morning,
[2019-10-01] MEDS: CYANOCOBALAMIN 1,000 MCG TABLET 1000 MCG PO (08:41)
[2019-10-01] MEDS: MESALAMINE 400 MG DELAYED RELEASE CAPSULE 800 MG PO ×3 (08:41→17:59)
[2019-10-01] MEDS: LOSARTAN POTASSIUM 50 MG TABLET 100 MG PO (08:42)
[2019-10-01] MEDS: CHOLECALCIFEROL 1,000 UNIT TABLET 4000 UNITS PO (08:42)
[2019-10-01] MEDS: GABAPENTIN 300 MG CAPSULE 600 MG PO (08:42)
[2019-10-01] MEDS: APIXABAN 2.5 MG TABLET 5 MG PO ×2 (08:43→21:36)
[2019-10-01] MEDS: MULTIVITAMINS THERAPEUTIC TAB (*BKC) 1 TABLET PO (08:43)
[2019-10-01] MEDS: FAMOTIDINE 20 MG TABLET PO ×2 (08:43→21:36)
[2019-10-01] MEDS: FOLIC ACID 1 MG TABLET PO (08:43)
[2019-10-01] MEDS: ASPIRIN 81 MG CHEWABLE TABLET PO (08:44)
--- NOTE | 2019-10-01 10:25 | PC.NURSE ---
In chair at this time, pillows for support and comfort, at the bedside, napping at intervals
--- NOTE | 2019-10-01 10:41 | PM.IMPN ---
Progress Note: A&P Assessment and Plan (1) Pulmonary embolism: Qualifiers: Pulmonary embolism type: single subsegmental (without acute cor pulmonale) Qualified Code(s): I26.93 - Single subsegmental pulmonary embolism without acute cor pulmonale Code(s): I26.99 - Other pulmonary embolism without acute cor pulmonale Status: Acute Assessment and Plan: TREATED and STABLE. CTA indicates Positive for small right-sided pulmonary embolism. patient will continue Eliquis 10 mg p.o. b.i.d. for 3 days and then transition to 5 mg p.o. b.i.d. thereafter monitor patient for SOB or new chest pains -- denies any concerns today contine Q12 hours DuoNeb txs. (2) Orthostatic hypotension: Code(s): I95.1 - Orthostatic hypotension Status: Resolved Assessment and Plan: STABLE. patient blood pressures stable continue hydrocortisone vital signs is ordered patient on bleeding and fall precaution patient was instructed to follow-up with real estate photographer after discharge (3) Acute respiratory failure: Qualifiers: Respiratory failure complication: hypoxia Qualified Code(s): J96.01 - Acute respiratory failure with hypoxia Code(s): J96.00 - Acute respiratory failure, unspecified whether with hypoxia or hypercapnia Status: Acute Assessment and Plan: IMPROVED. RESOLVED. possibly secondary to pneumonia , influenza and/ or PE discontinued the Doxycline dosing, as he has been on that for 18 days per Pharmacy records. continue nebulizers Duo Neb txs Q 12 hours. patient has a sleep study appointment for 10/13/2019 with [facility] [phone] continue supportive care Bronchoscopy 09/20. (4) Pneumonia: Qualifiers: Laterality: unspecified laterality Lung location: unspecified part of lung Pneumonia type: due to unspecified organism Qualified Code(s): J18.9 - Pneumonia, unspecified organism Code(s): J18.9 - Pneumonia, unspecified organism Status: Acute Assessment and Plan: RESOLVED. doxycycline discontinued after multiple days of dosing. able to wean to room air today, ABG completed 4 hours after weaned to room air, ABG was WNL. continue nebulizer treatments will continue decongestant and cough suppressant (5) Influenza B: Code(s): J10.1 - Influenza due to other identified influenza virus with other respiratory manifestations Status: Acute Assessment and Plan: RECOVERED. completed Tamiflu resolved (6) Generalized weakness: Code(s): R53.1 - Weakness Status: Acute Assessment and Plan: IMPROVING. ordered PT/OT use DME to prevent falls provide appropriate protein for healing will discharge to halfway/ assisted living required special education case manager consulted very low albumin levels. giving 25% albumin IV along with 10meq Lasix IV. (7) Cirrhosis: Qualifiers: Ascites presence: without ascites Hepatic cirrhosis type: unspecified hepatic cirrhosis Qualified Code(s): K74.60 - Unspecified cirrhosis of liver Code(s): K74.60 - Unspecified cirrhosis of liver Status: Chronic Assessment and Plan: STABLE. liver enzymes within normal limits INR within normal limits - rechecked today very low albumin levels. ordered between meal supplements (8) Hypertension: Qualifiers: Hypertension type: essential hypertension Qualified Code(s): I10 - Essential (primary) hypertension Code(s): I10 - Essential (primary) hypertension Status: Chronic Assessment and Plan: STABLE. Not a problem at this time. blood pressure monitored and stable. continue Coreg and losartan (may need to decrease this dose) vital signs is ordered adjust medications need (9) Edema due to hypoalbuminemia: Code(s): R60.9 - Edema, unspecified; E88.09 - Other disorders of plasma-protein metabolism, not elsewhere classified Status: Acute
--- NOTE | 2019-10-01 13:04 | PC.NURSE ---
patient able to stand with x2 contact guard assist and use of gait belt to get up from chair to commode, did take steps to get to commode, tolerated fair, good BM, unable to get up on own from commode, sit to stand used for safety to get patient from commode chair to bed, no injury, acquacel had come off during cleaning of patient, new acquacel applied and dry gauze place between scrotum and skin
[2019-10-01] MEDS: IRON SUCROSE COMPLEX 200 MG in SODIUM CHLORIDE 0.9% IV 50 ML 120 MG IVPB (13:25)
--- NOTE | 2019-10-01 14:40 | PC.NURSE ---
vitals taken prior to albumin infusion, left arm elevated on pillow, therapy done with patient for the day
[2019-10-01] MEDS: ALBUMIN HUMAN 25% 25 GM/100 ML 100 ML IVPB (14:45)
--- NOTE | 2019-10-01 15:45 | PC.NURSE ---
Resting in bed, denies needs at this time, HOB elevated
[2019-10-01] MEDS: FUROSEMIDE INJ 40 MG/4 ML VIAL 10 MG IV PUSH (15:46)
--- NOTE | 2019-10-01 17:10 | PC.NURSE ---
As per PT recommendation, patient assisted to sitting on edge of bed for dinner, advised to try to not stablize self with hands as to strengthen core,
--- NOTE | 2019-10-01 17:37 | PC.NURSE ---
Assisted to standing position, contact guard assist x2, able to use walker and take 2 steps forward and then 2 steps back to the chair, legs elevated and call light in reach
[2019-10-01] MEDS: POTASSIUM CHLORIDE 10 MEQ TABLET 20 MEQ PO (18:00)
[2019-10-01] MEDS: TOLNAFTATE 1% POWDER 45 GM BTL 1 APPLIC TOPICAL (21:36)
[2019-10-01] MEDS: ACETAMINOPHEN 500 MG TABLET 1000 MG PO (22:06)
[2019-10-02] VITALS (13 sets, daily range): BP systolic 117–143; BP diastolic 76–94; PULSE 88–102; RESP 16–20; TEMP 36.4–36.9; O2SAT 93–100
[2019-10-02] MEDS: HYDROCORTISONE 10 MG TABLET 20 MG PO ×2 (06:07→17:42)
[2019-10-02] MEDS: IPRATROPIUM 0.5 MG/ALBUTEROL SULFATE 2.5 MG AMPUL.NEB 3 ML INHALATION ×3 (06:23→20:36)
[2019-10-02 07:18] LABS: Hematocrit 23.9 % (37.0-46.0); Hemoglobin 7.3 g/dL (12.4-15.3); Mean Corpuscular HGB Conc 30.5 g/dL (32.0-36.0); Mean Corpuscular Volume 98.4 fL (78.0-102.0); Mean Platelet Volume 10.5 fl (8.7-11.0); Platelet Count Result 176 K/mm3 (150-420); Red Blood Count 2.43 M/mm3 (4.70-6.10); Red Cell Distribution Width 18.4 % (11.6-14.4); White Blood Count 3.9 K/mm3 (4.8-10.8)
[2019-10-02 07:35] LABS: BNP 202 pg/mL (0-100)
[2019-10-02 07:49] LABS: Alanine Aminotransferase 16 U/L (16-63); Albumin Level 2.2 g/dL (3.4-5.0); Aspartate Amino Transferase 20 U/L (15-37); Bilirubin,Total 0.4 mg/dL (0.00-1.00); Blood Urea Nitrogen 21 mg/dL (7-18); CRP 1.3 mg/dL (0.0-0.9); Calcium 8.4 mg/dL (8.5-10.1); Carbon Dioxide 33 mmol/L (21-32); Chloride 109 mmol/L (98-108); Estimated CRCL calculation 53 ml/min; Estimated Glomerular Filt Rate > 60; Glucose 94 mg/dL (70-99); Osmolality Calculated 303 mOsm/kg (285-295); Sodium 145 mmol/L (136-145); Total Protein 4.8 g/dL (6.4-8.2)
[2019-10-02 07:59] LABS: Alkaline Phosphatase 56 U/L (46-116)
[2019-10-02 08:02] LABS: Band Neutrophils Percent 1 % (0-6); Lymphocytes Percent Manual 13 % (18-44); Neutrophils Absolute Manual 2.88 K/mm3 (1.3-6.7); Neutrophils Percent Manual 73 % (46-73); Total Cells Counted 100
[2019-10-02 08:03] LABS: Basophils Percent Manual 0 % (0-1); Eosinophils Percent Manual 0 % (1-6); Metamyelocytes Percent 1 %; Monocytes Absolute Manual 0.46 K/mm3 (0.1-0.90); Monocytes Percent Manual 12 % (3-9); Platelet Estimate Adequate (Adequate)
[2019-10-02 09:00] LABS: Occult Blood Negative (Negative)
[2019-10-02] MEDS: MESALAMINE 400 MG DELAYED RELEASE CAPSULE 800 MG PO ×3 (09:46→17:42)
[2019-10-02] MEDS: CHOLECALCIFEROL 1,000 UNIT TABLET 4000 UNITS PO (09:46)
[2019-10-02] MEDS: GABAPENTIN 300 MG CAPSULE 600 MG PO (09:46)
[2019-10-02] MEDS: CYANOCOBALAMIN 1,000 MCG TABLET 1000 MCG PO (09:47)
[2019-10-02] MEDS: MULTIVITAMINS THERAPEUTIC TAB (*BKC) 1 TABLET PO (09:47)
[2019-10-02] MEDS: APIXABAN 2.5 MG TABLET 5 MG PO ×2 (09:47→20:36)
[2019-10-02] MEDS: LOSARTAN POTASSIUM 50 MG TABLET 100 MG PO (09:47)
[2019-10-02] MEDS: ASPIRIN 81 MG CHEWABLE TABLET PO (09:47)
[2019-10-02] MEDS: FAMOTIDINE 20 MG TABLET PO ×2 (09:47→20:36)
[2019-10-02] MEDS: FOLIC ACID 1 MG TABLET PO (09:47)
[2019-10-02] MEDS: TOLNAFTATE 1% POWDER 45 GM BTL 1 APPLIC TOPICAL ×2 (09:48→20:39)
[2019-10-02] MEDS: ACETAMINOPHEN 500 MG TABLET 1000 MG PO (11:14)
[2019-10-02] MEDS: SODIUM CHLORIDE 0.9% IV 250 ML 30 ML IV CONT (12:03)
[2019-10-02] MEDS: FUROSEMIDE INJ 40 MG/4 ML VIAL 10 MG IV PUSH (12:08)
--- NOTE | 2019-10-02 15:21 | PM.IMPN ---
Progress Note: A&P Assessment and Plan (1) Pulmonary embolism: Qualifiers: Pulmonary embolism type: single subsegmental (without acute cor pulmonale) Qualified Code(s): I26.93 - Single subsegmental pulmonary embolism without acute cor pulmonale Code(s): I26.99 - Other pulmonary embolism without acute cor pulmonale Status: Acute Assessment and Plan: TREATED and STABLE. CTA indicates Positive for small right-sided pulmonary embolism. patient will continue Eliquis 10 mg p.o. b.i.d. for 3 days and then transition to 5 mg p.o. b.i.d. thereafter monitor patient for SOB or new chest pains -- denies any concerns today contine Q12 hours DuoNeb txs. (2) Orthostatic hypotension: Code(s): I95.1 - Orthostatic hypotension Status: Resolved Assessment and Plan: STABLE. patient blood pressures stable continue hydrocortisone vital signs is ordered patient on bleeding and fall precaution patient was instructed to follow-up with necktie centralizing machine operator after discharge (3) Acute respiratory failure: Qualifiers: Respiratory failure complication: hypoxia Qualified Code(s): J96.01 - Acute respiratory failure with hypoxia Code(s): J96.00 - Acute respiratory failure, unspecified whether with hypoxia or hypercapnia Status: Acute Assessment and Plan: IMPROVED. RESOLVED. possibly secondary to pneumonia , influenza and/ or PE discontinued the Doxycline dosing, as he has been on that for 18 days per Pharmacy records. continue nebulizers Duo Neb txs Q 12 hours. patient has a sleep study appointment for 10/13/2019 with [facility] [phone] continue supportive care Bronchoscopy 09/20. Now on Room Air with wean ABG appropriate. Needs FREQUENT reminders to use his Coronet and to practice pulmonary Toilet. Give 10mg Lasix PRN to treat pulmonary congestion. (4) Pneumonia: Qualifiers: Laterality: unspecified laterality Lung location: unspecified part of lung Pneumonia type: due to unspecified organism Qualified Code(s): J18.9 - Pneumonia, unspecified organism Code(s): J18.9 - Pneumonia, unspecified organism Status: Acute Assessment and Plan: RESOLVED. doxycycline discontinued after multiple days of dosing. able to wean to room air today, ABG completed 4 hours after weaned to room air, ABG was WNL. continue nebulizer treatments will continue decongestant and cough suppressant (5) Influenza B: Code(s): J10.1 - Influenza due to other identified influenza virus with other respiratory manifestations Status: Acute Assessment and Plan: RECOVERED. completed Tamiflu resolved (6) Generalized weakness: Code(s): R53.1 - Weakness Status: Acute Assessment and Plan: IMPROVING. ordered PT/OT use DME to prevent falls provide appropriate protein for healing will discharge to [facility]/ assisted living required caser consulted very low albumin levels. giving 25% albumin IV along with 10meq Lasix IV. (7) Cirrhosis: Qualifiers: Ascites presence: without ascites Hepatic cirrhosis type: unspecified hepatic cirrhosis Qualified Code(s): K74.60 - Unspecified cirrhosis of liver Code(s): K74.60 - Unspecified cirrhosis of liver Status: Chronic Assessment and Plan: STABLE. liver enzymes within normal limits INR within normal limits - rechecked today very low albumin levels. ordered between meal supplements (8) Hypertension: Qualifiers: Hypertension type: essential hypertension Qualified Code(s): I10 - Essential (primary) hypertension Code(s): I10 - Essential (primary) hypertension Status: Chronic Assessment and Plan: STABLE. Not a problem at this time. blood pressure monitored and stable. continue Coreg and losartan (may need to decrease this dose) vital signs is ordered adjust medications need (9)
[2019-10-02] MEDS: IRON SUCROSE COMPLEX 200 MG in SODIUM CHLORIDE 0.9% IV 50 ML 120 MG IVPB (16:00)
[2019-10-02 17:19] LABS: Hematocrit 29.1 % (37.0-46.0); Hemoglobin 8.9 g/dL (12.4-15.3)
[2019-10-03] VITALS (11 sets, daily range): BP systolic 135–172; BP diastolic 91–97; PULSE 88–93; RESP 18–20; TEMP 36.4–37.1; O2SAT 92–95
[2019-10-03 04:39] LABS: Osmolality, Urine 545 mOsm/kg (50-1200)
[2019-10-03] MEDS: IPRATROPIUM 0.5 MG/ALBUTEROL SULFATE 2.5 MG AMPUL.NEB 3 ML INHALATION ×3 (05:44→21:39)
[2019-10-03] MEDS: HYDROCORTISONE 10 MG TABLET 20 MG PO ×2 (05:54→17:47)
[2019-10-03] MEDS: POLYSACCHARIDE IRON COMPLEX 150 MG CAPSULE PO (08:18)
[2019-10-03] MEDS: ACETAMINOPHEN 500 MG TABLET 1000 MG PO ×2 (08:18→21:39)
[2019-10-03 09:10] LABS: Hematocrit 29.7 % (37.0-46.0); Mean Corpuscular HGB Conc 30.3 g/dL (32.0-36.0); Mean Platelet Volume 10.3 fl (8.7-11.0); Platelet Count Result 189 K/mm3 (150-420); Red Cell Distribution Width 18.6 % (11.6-14.4)
[2019-10-03 09:11] LABS: Occult Blood Negative (Negative)
[2019-10-03] MEDS: MESALAMINE 400 MG DELAYED RELEASE CAPSULE 800 MG PO ×3 (09:28→17:47)
[2019-10-03] MEDS: GABAPENTIN 300 MG CAPSULE 600 MG PO (09:29)
[2019-10-03] MEDS: FOLIC ACID 1 MG TABLET PO (09:29)
[2019-10-03] MEDS: CHOLECALCIFEROL 1,000 UNIT TABLET 4000 UNITS PO (09:29)
[2019-10-03] MEDS: ASPIRIN 81 MG CHEWABLE TABLET PO (09:30)
[2019-10-03] MEDS: POTASSIUM CHLORIDE 10 MEQ TABLET PO (09:30)
[2019-10-03] MEDS: LOSARTAN POTASSIUM 50 MG TABLET 100 MG PO (09:30)
[2019-10-03] MEDS: MULTIVITAMINS THERAPEUTIC TAB (*BKC) 1 TABLET PO (09:30)
[2019-10-03] MEDS: FUROSEMIDE INJ 40 MG/4 ML VIAL 10 MG IV PUSH ×2 (09:31→17:20)
[2019-10-03] MEDS: APIXABAN 2.5 MG TABLET 5 MG PO ×2 (09:31→21:39)
[2019-10-03] MEDS: FAMOTIDINE 20 MG TABLET PO ×2 (09:31→21:38)
[2019-10-03] MEDS: CYANOCOBALAMIN 1,000 MCG TABLET 1000 MCG PO (09:31)
[2019-10-03 10:15] LABS: Anion Gap 8.9 mmol/L (7-16); Blood Urea Nitrogen 24 mg/dL (7-18); Calcium 8.5 mg/dL (8.5-10.1); Carbon Dioxide 33 mmol/L (21-32); Chloride 106 mmol/L (98-108); Estimated CRCL calculation 52 ml/min; Estimated Glomerular Filt Rate > 60; Glucose 125 mg/dL (70-99); Osmolality Calculated 303 mOsm/kg (285-295); Potassium 3.9 mmol/L (3.5-5.1); Sodium 144 mmol/L (136-145)
[2019-10-03 10:36] LABS: BNP 273 pg/mL (0-100)
[2019-10-03] MEDS: TOLNAFTATE 1% POWDER 45 GM BTL 1 APPLIC TOPICAL ×2 (12:40→21:44)
--- NOTE | 2019-10-03 19:19 | PC.NURSE ---
Assisted patient to bed with sit to stand . Does well with transfers. positioned in bed for comfort with call light in reach.
[2019-10-04] VITALS (9 sets, daily range): BP systolic 137–184; BP diastolic 84–107; PULSE 80–98; RESP 16–22; TEMP 36.2–36.6; O2SAT 94–96
[2019-10-04] MEDS: IPRATROPIUM 0.5 MG/ALBUTEROL SULFATE 2.5 MG AMPUL.NEB 3 ML INHALATION ×3 (05:33→22:08)
[2019-10-04] MEDS: ACETAMINOPHEN 500 MG TABLET 1000 MG PO (05:45)
[2019-10-04] MEDS: HYDROCORTISONE 10 MG TABLET 20 MG PO ×2 (05:46→18:27)
[2019-10-04] MEDS: FUROSEMIDE INJ 40 MG/4 ML VIAL 10 MG IV PUSH (08:47)
[2019-10-04] MEDS: MESALAMINE 400 MG DELAYED RELEASE CAPSULE 800 MG PO ×3 (08:47→18:27)
[2019-10-04] MEDS: LOSARTAN POTASSIUM 50 MG TABLET 100 MG PO (08:48)
[2019-10-04] MEDS: CHOLECALCIFEROL 1,000 UNIT TABLET 4000 UNITS PO (08:48)
[2019-10-04] MEDS: CYANOCOBALAMIN 1,000 MCG TABLET 1000 MCG PO (08:48)
[2019-10-04] MEDS: APIXABAN 2.5 MG TABLET 5 MG PO ×2 (08:48→22:08)
[2019-10-04] MEDS: POLYSACCHARIDE IRON COMPLEX 150 MG CAPSULE PO (08:48)
[2019-10-04] MEDS: FAMOTIDINE 20 MG TABLET PO ×2 (08:48→22:08)
[2019-10-04] MEDS: GABAPENTIN 300 MG CAPSULE 600 MG PO (08:48)
[2019-10-04] MEDS: MULTIVITAMINS THERAPEUTIC TAB (*BKC) 1 TABLET PO (08:48)
[2019-10-04] MEDS: ASPIRIN 81 MG CHEWABLE TABLET PO (08:49)
[2019-10-04] MEDS: FOLIC ACID 1 MG TABLET PO (08:49)
[2019-10-04] MEDS: POTASSIUM CHLORIDE 10 MEQ TABLET PO (08:49)
[2019-10-04] MEDS: TOLNAFTATE 1% POWDER 45 GM BTL 1 APPLIC TOPICAL ×2 (08:51→22:08)
[2019-10-05] VITALS (11 sets, daily range): BP systolic 146–181; BP diastolic 80–98; PULSE 72–89; RESP 16–20; TEMP 35.9–36.2; O2SAT 88–94
[2019-10-05] MEDS: ONDANSETRON INJ 4 MG/2 ML VIAL IV PUSH (02:54)
[2019-10-05] MEDS: IPRATROPIUM 0.5 MG/ALBUTEROL SULFATE 2.5 MG AMPUL.NEB 3 ML INHALATION ×3 (05:34→21:42)
[2019-10-05] MEDS: HYDROCORTISONE 10 MG TABLET 20 MG PO ×2 (05:52→18:48)
[2019-10-05] MEDS: POLYSACCHARIDE IRON COMPLEX 150 MG CAPSULE PO (08:49)
[2019-10-05] MEDS: APIXABAN 2.5 MG TABLET 5 MG PO ×2 (08:49→21:20)
[2019-10-05] MEDS: FUROSEMIDE INJ 40 MG/4 ML VIAL 10 MG IV PUSH (08:50)
[2019-10-05] MEDS: CYANOCOBALAMIN 1,000 MCG TABLET 1000 MCG PO (08:50)
[2019-10-05] MEDS: FOLIC ACID 1 MG TABLET PO (08:50)
[2019-10-05] MEDS: FAMOTIDINE 20 MG TABLET PO ×2 (08:50→21:20)
[2019-10-05] MEDS: ASPIRIN 81 MG CHEWABLE TABLET PO (08:50)
[2019-10-05] MEDS: CHOLECALCIFEROL 1,000 UNIT TABLET 4000 UNITS PO (08:50)
[2019-10-05] MEDS: GABAPENTIN 300 MG CAPSULE 600 MG PO (08:51)
[2019-10-05] MEDS: LOSARTAN POTASSIUM 50 MG TABLET 100 MG PO (08:51)
[2019-10-05] MEDS: MULTIVITAMINS THERAPEUTIC TAB (*BKC) 1 TABLET PO (08:52)
[2019-10-05] MEDS: POTASSIUM CHLORIDE 10 MEQ TABLET PO (08:52)
[2019-10-05] MEDS: MESALAMINE 400 MG DELAYED RELEASE CAPSULE 800 MG PO ×3 (08:52→18:49)
[2019-10-05] MEDS: TOLNAFTATE 1% POWDER 45 GM BTL 1 APPLIC TOPICAL ×2 (09:06→21:21)
[2019-10-05] MEDS: ACETAMINOPHEN 500 MG TABLET 1000 MG PO (21:42)
--- NOTE | 2019-10-05 23:07 | PC.NURSE ---
Knee jinny jai hose removed for noc.
--- NOTE | 2019-10-05 23:09 | PC.NURSE ---
Sleeping, resp even. Call grey in place.
[2019-10-06] VITALS: BP 127/66; PULSE 92; RESP 20; TEMP 36.8; O2SAT 93
[2019-10-06] MEDS: IPRATROPIUM 0.5 MG/ALBUTEROL SULFATE 2.5 MG AMPUL.NEB 3 ML INHALATION (05:44)
[2019-10-06 05:45] VITALS: PULSE 91; RESP 16
[2019-10-06 05:56] VITALS: PULSE 80; RESP 16
[2019-10-06] MEDS: HYDROCORTISONE 10 MG TABLET 20 MG PO (05:56)
[2019-10-06 06:00] LABS: Basophils Absolute Auto 0.03 K/mm3 (0.00-0.10); Basophils Percent Auto 0.6 % (0.0-1.0); Eosinophils Percent Auto 2.1 % (1.0-6.0); Hematocrit 26.4 % (37.0-46.0); Hemoglobin 8.2 g/dL (12.4-15.3); Immature Granulocyte Absolute 0.06 K/mm3 (0.00-0.00); Immature Granulocyte Percent A 1.2 % (0.0-0.0); Lymphocytes Absolute Auto 0.69 K/mm3 (1.10-4.50); Lymphocytes Percent Auto 14.3 % (18.0-42.0); Mean Corpuscular HGB Conc 31.1 g/dL (32.0-36.0); Mean Corpuscular Hemoglobin 31.1 pg (27.0-31.0); Mean Platelet Volume 10.7 fl (8.7-11.0); Monocytes Absolute Auto 0.57 K/mm3 (0.10-0.90); Monocytes Percent Auto 11.8 % (2.0-11.0); Neutrophils Absolute Auto 3.4 K/mm3 (1.7-7.2); Nucleated Red Blood Cells Absolute Auto 0.03 K/mm3 (0.00-0.00); Nucleated Red Blood Cells Perc 0.6 % (0-0.0); Platelet Count Result 207 K/mm3 (150-420); Red Blood Count 2.64 M/mm3 (4.70-6.10); Red Cell Distribution Width 18.8 % (11.6-14.4); White Blood Count 4.8 K/mm3 (4.8-10.8)
[2019-10-06 06:11] LABS: BNP 163 pg/mL (0-100)
[2019-10-06 06:16] LABS: Alanine Aminotransferase 16 U/L (16-63); Albumin Level 2.1 g/dL (3.4-5.0); Alkaline Phosphatase 60 U/L (46-116); Anion Gap 6.6 mmol/L (7-16); Aspartate Amino Transferase 22 U/L (15-37); Bilirubin,Total 0.3 mg/dL (0.00-1.00); Blood Urea Nitrogen 29 mg/dL (7-18); Calcium 8.5 mg/dL (8.5-10.1); Carbon Dioxide 31 mmol/L (21-32); Chloride 107 mmol/L (98-108); Estimated CRCL calculation 54 ml/min; Estimated Glomerular Filt Rate > 60; Glucose 97 mg/dL (70-99); Magnesium 1.9 mg/dL (1.8-2.4); Osmolality Calculated 295 mOsm/kg (285-295); Potassium 4.6 mmol/L (3.5-5.1); Sodium 140 mmol/L (136-145); Total Protein 4.6 g/dL (6.4-8.2)
[2019-10-06 08:00] VITALS: BP 148/93; PULSE 76; RESP 24; TEMP 36.6; O2SAT 95
--- NOTE | 2019-10-06 08:15 | PC.NURSE ---
Patient transferred to [facility]. Ambulated from commode to recliner. One assist with gait belt, wheeled walker. Tolerated well by patient.
[2019-10-06] MEDS: ASPIRIN 81 MG CHEWABLE TABLET PO (08:54)
[2019-10-06] MEDS: GABAPENTIN 300 MG CAPSULE 600 MG PO (08:54)
[2019-10-06] MEDS: LOSARTAN POTASSIUM 50 MG TABLET 100 MG PO (08:54)
[2019-10-06] MEDS: CYANOCOBALAMIN 1,000 MCG TABLET 1000 MCG PO (08:54)
[2019-10-06] MEDS: CHOLECALCIFEROL 1,000 UNIT TABLET 4000 UNITS PO (08:54)
[2019-10-06] MEDS: ACETAMINOPHEN 500 MG TABLET 1000 MG PO (08:55)
[2019-10-06] MEDS: FAMOTIDINE 20 MG TABLET PO (08:55)
[2019-10-06] MEDS: POTASSIUM CHLORIDE 10 MEQ TABLET PO ×2 (08:55→09:37)
[2019-10-06] MEDS: MULTIVITAMINS THERAPEUTIC TAB (*BKC) 1 TABLET PO (08:55)
[2019-10-06] MEDS: POLYSACCHARIDE IRON COMPLEX 150 MG CAPSULE PO (08:55)
[2019-10-06] MEDS: APIXABAN 2.5 MG TABLET 5 MG PO (08:55)
[2019-10-06] MEDS: FOLIC ACID 1 MG TABLET PO (08:55)
[2019-10-06] MEDS: MESALAMINE 400 MG DELAYED RELEASE CAPSULE 800 MG PO ×2 (08:57→12:57)
[2019-10-06] MEDS: FUROSEMIDE 20 MG TABLET PO (09:36)
[2019-10-06] MEDS: TOLNAFTATE 1% POWDER 45 GM BTL 1 APPLIC TOPICAL (09:37)
[2019-10-06 11:35] LABS: Occult Blood Negative (Negative)
--- NOTE | 2019-10-06 12:16 | PC.NURSE ---
Patient repositioned in recliner
--- NOTE | 2019-10-06 12:38 | PC.NURSE ---
[facility]
--- NOTE | 2019-10-06 12:43 | PM.DS ---
DS: Diagnosis Admitting Diagnosis Admitting Diagnosis: Other pulmonary embolism without acute cor pulmonale <Verona Baxter NP - Last Filed: 10/06/19 16:59> Discharge Diagnosis (1) Pulmonary embolism: Qualifiers: Pulmonary embolism type: single subsegmental (without acute cor pulmonale) Qualified Code(s): I26.93 - Single subsegmental pulmonary embolism without acute cor pulmonale <Verona Baxter NP - Last Filed: 10/06/19 16:59> Code(s): I26.99 - Other pulmonary embolism without acute cor pulmonale <Verona Baxter NP - Last Filed: 10/06/19 16:59> Status: Acute <Verona Baxter NP - Last Filed: 10/06/19 16:59> Assessment and Plan: TREATED and STABLE. CTA indicates Positive for small right-sided pulmonary embolism. patient will continue Eliquis 10 mg p.o. b.i.d. for 3 days and then transition to 5 mg p.o. b.i.d. thereafter monitor patient for SOB or new chest pains -- denies any concerns today contine Q12 hours DuoNeb txs. <Verona Baxter NP - Last Filed: 10/06/19 16:59> (2) Orthostatic hypotension: Code(s): I95.1 - Orthostatic hypotension <Verona Baxter NP - Last Filed: 10/06/19 16:59> Status: Resolved <Verona Baxter NP - Last Filed: 10/06/19 16:59> Assessment and Plan: STABLE. patient blood pressures stable continue hydrocortisone vital signs is ordered patient on bleeding and fall precaution patient was instructed to follow-up with patch machine operator after discharge <Verona Baxter NP - Last Filed: 10/06/19 16:59> (3) Acute respiratory failure: Qualifiers: Respiratory failure complication: hypoxia Qualified Code(s): J96.01 - Acute respiratory failure with hypoxia <Verona Baxter NP - Last Filed: 10/06/19 16:59> Code(s): J96.00 - Acute respiratory failure, unspecified whether with hypoxia or hypercapnia <Verona Baxter NP - Last Filed: 10/06/19 16:59> Status: Acute <Verona Baxter NP - Last Filed: 10/06/19 16:59> Assessment and Plan: IMPROVED. Required O2 added around midnight due to spO2 sat 88%. ordered CXR for today and noticed H/H drop possibly secondary to pneumonia , influenza and/ or PE discontinued the Doxycline dosing, as he has been on that for 18 days per Pharmacy records. continue nebulizers Duo Neb txs Q 12 hours. patient has a sleep study appointment for 10/13/2019 with , [facility] [phone] continue supportive care Bronchoscopy 09/20. Now on Room Air with wean ABG appropriate. Needs FREQUENT reminders to use his Coronet and to practice pulmonary Toilet. Give 10mg [id number] hours to treat pulmonary congestion/edema. <Verona Baxter NP - Last Filed: 10/06/19 16:59> (4) Pneumonia: Qualifiers: Laterality: unspecified laterality Lung location: unspecified part of lung Pneumonia type: due to unspecified organism Qualified Code(s): J18.9 - Pneumonia, unspecified organism <Verona Baxter NP - Last Filed: 10/06/19 16:59> Code(s): J18.9 - Pneumonia, unspecified organism <Verona Baxter NP - Last Filed: 10/06/19 16:59> Status: Acute <Verona Baxter CROWN IRONER OPERATOR - Last Filed: 10/06/19 16:59> Assessment and Plan: RESOLVED. doxycycline discontinued after multiple days of dosing. able to wean to room air today, ABG completed 4 hours after weaned to room air, ABG was WNL. continue nebulizer treatments will continue decongestant and cough suppressant <Verona Baxter NP - Last Filed: 10/06/19 16:59> (5) Influenza B: Code(s): J10.1 - Influenza due to other identified influenza virus with other respiratory manifestations <Verona Baxter NP - Last Filed: 10/06/19 16:59> Status: Acute <Verona Baxter NP - Last Filed: 10/06/19 16:59> Assessment and Plan: RECOVERED. completed Tamiflu resolved <Verona Baxter NP - Last Filed: 10/06/19 16:59> (6) G
--- NOTE | 2019-10-06 12:51 | PC.NURSE ---
Transferred patient from recliner to commode to recliner. Heavy assist x2 gait belt, wheeled walker
--- NOTE | 2019-10-06 13:29 | PC.NURSE ---
called [facility] ambulance for transfer to [place]
--- NOTE | 2019-10-06 14:11 | PC.NURSE ---
Patient transported off of floor, via stretcher. [facility].
--- NOTE | 2019-10-06 20:59 | P.PNCROSS_ITS ---
Event Note Event Note Event Note: For this patient encounter, I reviewed the BAKESHOP CLEANER documentation, treatment plan, and medical decision making; and I had ecyi-[id number] time with this patient. Alert, friendly and cooperative. Bibasilar mike. Agree with transfer to for evaluation of hematuria and recurrent drop of h emoglobin.
--- NOTE | 2019-10-06 20:59 | PM.EVENT ---
Event Note Event Note Event Note: For this patient encounter, I reviewed the PROFESSOR OF SOCIOLOGY documentation, treatment plan, and medical decision making; and I had [id number] time with this patient. Alert, friendly and cooperative. Jenlaivonne mckeon. Agree with transfer to for evaluation of hematuria and recurrent drop of hemoglobin.
[2019-10-07 04:38] LABS: Calcium/Creatinine Ratio, Ur 60 mg/g creat (10-240); Urine Calcium, Random 9.1 mg/dL (***); Urine Creatinine, Random 151 mg/dL (20-320)
--- NOTE | 2019-10-08 16:08 | PCOTNOTE ---
Patient is discharged from skilled OT services at this time. Refer to last treatment note for patient's skill and progress towards goals. [facility] however was transferred to [facility] secondary to medical complications. [place]
== END 2019-10-06 14:10 | disposition short-term general hospital (02) | DRG 947 ==
PROVIDERS: Nurse Practitioner; Admitting Provider Emergency Medicine; PCP Internal Medicine; Visit Provider Emergency Medicine
DX: R53.1 Weakness (principal); I26.99 Other pulmonary embolism without acute cor pulmonale; J11.00 Influenza due to unidentified influenza virus with unspecified type of pneumonia; K51.90 Ulcerative colitis, unspecified, without complications; R26.89 Other abnormalities of gait and mobility; K74.60 Unspecified cirrhosis of liver; I10 Essential (primary) hypertension; D50.9 Iron deficiency anemia, unspecified; R60.9 Edema, unspecified; E88.09 Other disorders of plasma-protein metabolism, not elsewhere classified; K21.9 Gastro-esophageal reflux disease without esophagitis; G62.9 Polyneuropathy, unspecified
CPT/HCPCS: 36415; 36430; 36600; 71046; 76770; 80048; 80053; 81001; 81002; 81050; 82043; 82140; 82272; 82310; 82550; 82570; 82728; 82805; 83540; 83550; 83605; 83735; 83880; 83935; 84100; 84105; 84133; 84156; 84300; 84540; 85014; 85018; 85025; 85027; 85610; 85999; 86140; 86850; 86900; 86901; 86923; 87086; 87088; 93005; 94640; 97110; 97162; 97166; 97530; 97535; A9270; J1756; J1940; J2405; J7050; P9016; P9047

== ENCOUNTER 2019-10-06 14:57 | Inpatient (IN) | payer MEDICARE, SELFPAY ==
--- NOTE | ~2019-10-06 | CT_ITS ---
EXAMINATION: CT abdomen pelvis w con DATE: 10/07/2019 14:47 INDICATION: Gross hematuria. Anemia. TECHNIQUE: Computed tomography (CT) of the abdomen and pelvis was performed with 100 mg Omnipaque 350 intravenous contrast. Automated exposure control and iterative reconstruction technique were employe d. The dose-length product was 747.87 mGy-cm. COMPARISON: CT abdomen and pelvis 09/06/2019, chest CT 09/14/2019, 04/21/19 FINDINGS: The visualized portions of the lung bases again demonstrate elevation of right hemidiaphrag m with mild atelectasis in right middle lobe and right lower lobe. There are airspace and groundglass opacities in lingula and left lower lobe and small nodules in left lower lobe, consistent with pneum onia. There is a trace left pleural effusion. The heart size is normal. There are coronary artery sravan cifications. No pericardial effusion. There is a 7 mm cyst in the liver. The gallbladder, spleen, and pancreas are normal. There are cysts in the kidneys measuring up to 5.3 cm on the right. There is a 3 mm stone in right kidney. There is a 4 mm stone in left kidney. There is cortical thinning of the k idneys. The prostate is mildly enlarged. There are bilateral inguinal hernias containing fat. The rocky endix is normal. There are no dilated loops of bowel. There is thoracolumbar levoscoliosis and severe spondylosis. There are bridging endplate osteophytes at multiple levels in the thoracic spine, consi stent with diffuse idiopathic skeletal hyperostosis (DISH). Again seen is a chronic distraction fract ure of T8 vertebral body. Again seen is a chronic burst fracture of T12. IMPRESSION: 1. Small bilateral nonobstructing kidney stones. 2. Airspace and groundglass opacities in lingula and left lower lobe and small nodules in left lower lobe, consistent with pneumonia. Reviewed, dictated and finalized at location A.
--- NOTE | ~2019-10-06 | XR_ITS ---
EXAMINATION: XR abdomen/kub 1V DATE: 10/07/2019 14:27 INDICATION: Gross hematuria and anemia. TECHNIQUE: A supine view of the abdomen was obtained. COMPARISON: CT abdomen and pelvis 09/06/2019 FINDINGS: There are multiple dilated loops of small bowel. The colon is normal in caliber. There are phleboliths in the pelvis. The kidneys are obscured by bowel. IMPRESSION: 1. Dilated small bowel, consistent with adynamic ileus versus small bowel obstruction. Reviewed, dictated and finalized at location A. IMPRESSION: 1. Dilated small bowel, consistent with adynamic ileus versus small bowel obstr uction.
[2019-10-06 16:00] VITALS: BP 161/97; PULSE 90; RESP 22; TEMP 37.4; O2SAT 98; BMI 25.7
--- NOTE | 2019-10-06 16:25 | PM.IMHP ---
H&P: HPI History of Present Illness Chief complaint: Hematuria and anemia. <Nupur Aleman PA-C - Last Filed: 10/06/19 22:36> Narrative: Alex Wakefield is an 79-year-old male who is being directly admitted to the hospitalist service from a swing bed at [facility] for further evaluation of hematuria and anemia. His medical history is significant for cirrhosis, hypertension, ulcerative colitis, and peripheral neuropathy. He is well known to the hospitalist service as he was admitted to us for several weeks recently, with an admission date of September 05, 2019. He was admitted for acute respiratory failure with hypoxia attributed to influenza B infection. He was started on Tamiflu but that was discontinued as the patient was having episodes of agitation and hallucinations. His respiratory status continued to decline, and repeat imaging showed bilateral pulmonary infiltrates for which he was treated with several antibiotics. He received IV Solu-Medrol for significant bronchospasm, which was transition to oral prednisone and ultimately he was started on hydrocortisone, which had the additional benefit of improving the problems he had been having with orthostatic hypotension. Bronchoscopy done 09/20/2019 due to continued respiratory issues showed white bubbly secretions in most segments which were washed and suctioned. He was later restarted on antibiotics, oral doxycycline on 09/14/2019. Due to continued hypoxia, chest CTA was performed on 09/14/2019 which showed a small right-sided pulmonary embolism and venous Doppler showed left soleus and saphenous DVTs for which she was started on Eliquis. No bacterial growth was noted in the bronchial washings, but Dominga albicans was noted to be growing on fungal culture. Later in his stay he developed diarrhea, tested positive for C diff, and completed a 10 day course of Dificid. He was able to be discharged on September 23, 2019 and has been at [facility] for rehab since that time. Since his admission to [facility], he has been weaned from oxygen and concluded his course of antibiotics. He remains on hydrocortisone 20 milligrams b.i.d. for unclear reasons. He has been receiving IV diuretics Q 48 hours due to significant, diffuse body edema. He was noted to have pretty significant hypoalbuminemia and it looks like it 1 time he received an IV dose of albumin. Nutritional status has been a problem with the patient, and he has been started on meal supplementations. He has also been anemic, and his labs have been monitored closely while at [facility], with hemoglobin varying between 7.3 and 8.4. Stool for occult blood was obtained on 3 separate occasions, negative each time. He was given a unit of packed red blood cells as well as IV Venofer for 3 days. Urinalysis obtained 09/30/2019 due to dark, tea-colored urine showed > 75 RBCs and 3+ blood as well as 3+ bacteria. Urine culture had no growth. Today, his hemoglobin was a bit lower than it had been for several days ago, and the provider caring for the patient was concerned by this and felt the patient needed to be transferred to [place] for further evaluation for cystoscopy. At the time my evaluation, the patient his are in the room. He is well in appearance is has no complaints at this time. Patient reports that he feels fine on most days, but continues to be weak, needing 2 person assist to ambulate to the bathroom. He was significantly edematous on discharge, but notes that the swelling has improved markedly with diuresis. He does note tea-colored urine for several days earlier on in the week, but his urine is now clear and yellow. He denies having symptoms of urinary tract infection or symptoms of benign prostatic hyperplasia. He denies melena and hematochezia. No fever, chills, or sweats. He denies chest pain shortness of breath. He continues to have a cough which is occasionally productive. Appetite has been good. No nausea or vomi
[2019-10-06 17:13] LABS: Add Urine Microscopic? YES; Appearance Urine Clear (Clear); Bilirubin Urine Negative (Negative); Blood Urine 1+ (Negative); Color Urine Yellow (Yellow); Glucose Urine UA Negative (Negative); Ketones Urine Negative (Negative); Leukocyte Esterase Ur Negative LEU/UL (Negative); Nitrate Urine Negative (Negative); Protein Urine Negative (Negative); RBC Urine 21-50 /hpf (0-2); Specific Grav Ur 1.012 (1.001-1.035); Urobilinogen Urine Negative mg/dL (<2.0); WBC Urine 0-3 /hpf
--- NOTE | 2019-10-06 18:09 | ADMGEN ---
This patient, Alex Wakefield, was admitted to Medical Room 253-01. Patient/family oriented to hospital policies and general routines including ID bracelet, bed and alarms, visiting hours, pain management, procedures, bathroom and other care routines, personal items, smoking policy, room service/diet, and visiting hours. Valuables list has been completed. Information on how to activate the Rapid Response Team has been discussed. Patient/Family are encouraged to report perceived risks to care and to ask questions if they do not understand what they are told or what they should do.
[2019-10-06] MEDS: ACETAMINOPHEN 325 MG TABLET 650 MG PO (19:44)
[2019-10-06 22:30] VITALS: BP 160/95; PULSE 90; RESP 18; TEMP 36.6; O2SAT 94
[2019-10-06] MEDS: HYDROCORTISONE 10 MG TABLET 20 MG PO (23:31)
[2019-10-06] MEDS: APIXABAN 2.5 MG TABLET 5 MG PO (23:31)
[2019-10-06] MEDS: TOLNAFTATE 1% POWDER 45 GM BTL 1 APPLIC TOPICAL (23:32)
[2019-10-07] VITALS (10 sets, daily range): BP systolic 133–173; BP diastolic 73–96; PULSE 72–85; RESP 16–18; TEMP 36.2–36.4; O2SAT 97–100; BMI 25.7
[2019-10-07 04:53] LABS: Add Urine Microscopic? YES; Appearance Urine Clear (Clear); Bilirubin Urine Negative (Negative); Blood Urine Negative (Negative); Calcium Oxalate Crystals Urine Present /hpf; Color Urine Yellow (Yellow); Glucose Urine UA Negative (Negative); Ketones Urine Negative (Negative); Leukocyte Esterase Ur Negative LEU/UL (NEGATIVE); Mucus Urine Rare /lpf; Nitrate Urine Negative (Negative); Protein Urine Negative (Negative); RBC Urine 0-2 /hpf (0-2); Specific Grav Ur 1.017 (1.001-1.035); Urobilinogen Urine Negative mg/dL (<2.0)
[2019-10-07 06:09] LABS: Basophils Percent Auto 0.2 % (0.2-1.2); Eosinophils Absolute Auto 0.1 K/mm3 (0-0.3); Eosinophils Percent Auto 1.5 % (0-4.4); Hematocrit 28.9 % (42.0-52.0); Hemoglobin 8.7 g/dL (14.0-18.0); Immature Granulocyte Absolute 0.06 K/mm3 (0.00-0.031); Immature Granulocyte Percent A 1.2 % (0-0.5); Lymphocytes Absolute Auto 0.72 K/mm3 (0.9-3.2); Lymphocytes Percent Auto 13.9 % (18.3-44.2); Mean Corpuscular HGB Conc 30.1 g/dl (32-36); Mean Corpuscular Hemoglobin 30.1 pg (26-34); Mean Platelet Volume 10.4 fl (7.4-10.4); Monocytes Absolute Auto 0.6 K/mm3 (0.1-0.6); Monocytes Percent Auto 11.6 % (2.6-8.5); Neutrophils Absolute Auto 3.7 K/mm3 (1.3-6.7); Neutrophils Percent Auto 71.6 % (45.5-73.1); Platelet Count Result 200 k/mm3 (150-375); Red Blood Count 2.89 M/mm3 (4.6-6.20); Red Cell Distribution Width 18.8 % (11.5-14.5); White Blood Count 5.2 K/mm3 (4.5-10.0)
[2019-10-07 06:19] LABS: INR 1.2; Prothrombin Time 14.9 Seconds (11.1-14.7)
[2019-10-07 06:39] LABS: Alanine Aminotransferase 18 U/L (4-50); Albumin Level 2.6 g/dL (3.5-5.1); Alkaline Phosphatase 60 U/L (38-126); Aspartate Amino Transferase 32 U/L (17-59); Bilirubin,Total 0.4 mg/dL (0.2-1.3); Blood Urea Nitrogen 26 mg/dL (9-20); Calcium 8.6 mg/dL (8.4-10.2); Carbon Dioxide 34 mmol/L (22-30); Chloride 102 mmol/L (98-107); Estimated CRCL calculation 58 ml/min; Estimated Glomerular Filt Rate > 60; Glucose 87 mg/dL (75-110); Magnesium 2.1 mg/dL (1.6-2.3); Phosphorus 3.8 mg/dL (2.5-4.5); Potassium 3.9 mmol/L (3.4-5.0); Sodium 137 mmol/L (137-145)
[2019-10-07] MEDS: POLYSACCHARIDE IRON COMPLEX 150 MG CAPSULE PO (08:41)
[2019-10-07] MEDS: ACETAMINOPHEN 325 MG TABLET 650 MG PO ×2 (08:41→17:17)
[2019-10-07] MEDS: APIXABAN 2.5 MG TABLET 5 MG PO ×2 (08:41→20:39)
[2019-10-07] MEDS: CHOLECALCIFEROL 1,000 UNIT TABLET 4000 UNITS PO (08:41)
[2019-10-07] MEDS: GABAPENTIN 300 MG CAPSULE 600 MG PO (08:42)
[2019-10-07] MEDS: CYANOCOBALAMIN 1,000 MCG TABLET 1000 MCG PO (08:42)
[2019-10-07] MEDS: POTASSIUM CHLORIDE 10 MEQ TABLET.ER PO (08:42)
[2019-10-07] MEDS: FOLIC ACID 1 MG TABLET PO (08:42)
[2019-10-07] MEDS: MULTIVITAMINS THERAPEUTIC TAB (*BKC) 1 TABLET PO (08:42)
[2019-10-07] MEDS: FAMOTIDINE 20 MG TABLET PO ×2 (08:42→20:40)
[2019-10-07] MEDS: MESALAMINE 400 MG DELAYED RELEASE CAPSULE 800 MG PO ×3 (08:42→17:10)
[2019-10-07] MEDS: HYDROCORTISONE 10 MG TABLET 20 MG PO ×2 (08:42→20:40)
[2019-10-07] MEDS: LOSARTAN POTASSIUM 100 MG TABLET PO (08:42)
[2019-10-07] MEDS: ASPIRIN 81 MG CHEWABLE TABLET PO (08:42)
[2019-10-07] MEDS: TOLNAFTATE 1% POWDER 45 GM BTL 1 APPLIC TOPICAL ×2 (08:43→20:40)
[2019-10-07] MEDS: ALBUTEROL SULFATE NEB 2.5 MG/0.5 ML INH INHALATION ×3 (09:51→23:09)
[2019-10-07] MEDS: IPRATROPIUM BR 0.02% INH SOLN 0.5 MG/2.5 ML VIAL INHALATION ×3 (09:51→23:09)
--- NOTE | 2019-10-07 10:12 | PCDIET ---
Nutrition Consult Complete: Increased nutrient needs R/T cirrhosis as evidence by daily needs of 2000kcals and 88g protein per day PO intake of meals and supplements at 75% or greater to maintain wt Goal:new goal established Pt current nutrition is heart healthy. Nutrition recommendation: 2gm Na + Ensure Compact BID Last recorded weight is 88.4 kg. Labs Reviewed:Albumin 2.6, Protein 5.0 Meds Noted:MTV, FE, B12, KCL, FE, VIT D Additional Notes: Pt denies any recent wt loss and states that wt is steady. BMI currently in healthy range. No evident signs of malnutrition other than some very mild temporal wasting. Protein and albumin both low as noted above. PO intake low today at 45%. Recommend providing additional kcal/protein at this time with Ensure compact BID. Following diet, po intake, wt every five days.
--- NOTE | 2019-10-07 12:19 | P.PNIM_ITS ---
Progress Note: A&P Assessment and Plan (1) Anemia: Code(s): D64.9 - Anemia, unspecified Status: Acute Assessment and Plan: * Review of iron studies from 09/30/2019 are consistent with anemia of chronic disease * Urinalysis 09/30/2019 was grossly bloody, with negative urine culture. * He received IV Venofer at outside hospital, 200 milligrams for 3 days. * Patient also started on oral iron supplementation * Stool was negative for occult blood x3. (2) Hematuria: Code(s): R31.9 - Hematuria, unspecified Status: Acute Assessment and Plan: * As above, urinalysis 09/30/2019 was grossly bloody with negative urine culture. * Urinalysis obtained today via straight cath showed a small amount of microscopic blood, likely due to trauma from the cath as he is on Eliquis * Dr. Keenan to see him for cystoscopy, urology consulted (3) Hypertension: Qualifiers: Hypertension type: essential hypertension Qualified Code(s): I10 - Essential (primary) hypertension Code(s): I10 - Essential (primary) hypertension Status: Chronic Assessment and Plan: * Continue to watch Bps * Remains on hydrocortisone, 20 milligrams q.i.d. and that will likely need to be tapered in the next coming days . (4) Anasarca: Code(s): R60.1 - Generalized edema Status: Acute Assessment and Plan: * Multifactorial in etiology * Nephrology consulted for possible nephrotic syndrome (5) Protein calorie malnutrition: Code(s): E46 - Unspecified protein-calorie malnutrition Status: Acute Assessment and Plan: * Dietary recommendations appreciated. (6) Ulcerative colitis: Qualifiers: Ulcerative colitis location: unspecified ulcerative colitis location Digestive disease complication type: without complication Qualified Code(s): K51.90 - Ulcerative colitis, unspecified, without complications Code(s): K51.90 - Ulcerative colitis, unspecified, without complications Status: Chronic Assessment and Plan: * No acute issues. * Continue mesalamine. (7) Chronic anticoagulation: Code(s): Z79.01 - superintendent terminal (current) use of anticoagulants Status: Acute Assessment and Plan: * Patient on Eliquis for recent diagnosis of DVT and pulmonary embolism. 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 * Continue PT/OT while here at [place]. . Subjective Date/time seen: 10/07/19 12:19 Interval history: 79-year-old male who is being directly admitted to the spitalist service from a swing bed at [facility] for further evaluation of hematuria and anemia. His medical history is significant for cirrhosis, hypertension, ulcerative colitis, and peripheral neuropathy.n. Was in [facility] for Cardiopulmonary rehab Pt transfered from [facility] back due to slow anaemia and hematuria will need urology and suspicious of nephrotic syndrome, will need nephrology consult Pt takes eliquis for his DVT. Pt appears asymptomatic, hb is 8 Review of Systems Review of Systems: All systems reviewed & are unremarkable except as noted in HPI and below Genitourinary: Com
--- NOTE | 2019-10-07 12:19 | PM.IMPN ---
Progress Note: A&P Assessment and Plan (1) Anemia: Code(s): D64.9 - Anemia, unspecified Status: Acute Assessment and Plan: Review of iron studies from 09/30/2019 are consistent with anemia of chronic disease Urinalysis 09/30/2019 was grossly bloody, with negative urine culture. He received IV Venofer at outside hospital, 200 milligrams for 3 days. Patient also started on oral iron supplementation Stool was negative for occult blood x3. (2) Hematuria: Code(s): R31.9 - Hematuria, unspecified Status: Acute Assessment and Plan: As above, urinalysis 09/30/2019 was grossly bloody with negative urine culture. Urinalysis obtained today via straight cath showed a small amount of microscopic blood, likely due to trauma from the cath as he is on Eliquis Dr. Keenan to see him for cystoscopy, urology consulted (3) Hypertension: Qualifiers: Hypertension type: essential hypertension Qualified Code(s): I10 - Essential (primary) hypertension Code(s): I10 - Essential (primary) hypertension Status: Chronic Assessment and Plan: Continue to watch Bps Remains on hydrocortisone, 20 milligrams q.i.d. and that will likely need to be tapered in the next coming days . (4) Anasarca: Code(s): R60.1 - Generalized edema Status: Acute Assessment and Plan: Multifactorial in etiology Nephrology consulted for possible nephrotic syndrome (5) Protein calorie malnutrition: Code(s): E46 - Unspecified protein-calorie malnutrition Status: Acute Assessment and Plan: Dietary recommendations appreciated. (6) Ulcerative colitis: Qualifiers: Ulcerative colitis location: unspecified ulcerative colitis location Digestive disease complication type: without complication Qualified Code(s): K51.90 - Ulcerative colitis, unspecified, without complications Code(s): K51.90 - Ulcerative colitis, unspecified, without complications Status: Chronic Assessment and Plan: No acute issues. Continue mesalamine. (7) Chronic anticoagulation: Code(s): Z79.01 - vermin exterminator (current) use of anticoagulants Status: Acute Assessment and Plan: Patient on Eliquis for recent diagnosis of DVT and pulmonary embolism. 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 Continue PT/OT while here at [place]. . Subjective Date/time seen: 10/07/19 12:19 Interval history: 79-year-old male who is being directly admitted to the hospitalist service from a swing bed at [facility] for further evaluation of hematuria and anemia. His medical history is significant for cirrhosis, hypertension, ulcerative colitis, and peripheral neuropathy.n. Was in [place] for Cardiopulmonary rehab Pt transfered from [facility] back due to slow anaemia and hematuria will need urology and suspicious of nephrotic syndrome, will need nephrology consult Pt takes eliquis for his DVT. Pt appears asymptomatic, hb is 8 Review of Systems Review of Systems: All systems reviewed & are unremarkable except as noted in HPI and below Genitourinary: Comments: Hematuria Exam Narrative: Exam Narrative: General: Chronically ill-appearing elderly male HEENT: Normocephalic Neck: Supple. Respiratory: Faint crackles at the left base with scattered rhonchi. Cardiovascular: Regular rate and rhythm with S1-S2. Gastrointestinal: Abdomen is soft, protuberant, and nontender with positive bowel sounds. Reducible umbilical hernia. Skin: Warm and dry. Extremities: No cyanosis or clubbing. Objective Data Vital Signs Vital Sign
--- NOTE | 2019-10-07 13:55 | WPDURCON ---
Assessment and Plan Assessment and plan (1) Hematuria: Code(s): R31.9 - Hematuria, unspecified Status: Acute Assessment and Plan: Will obtain CT abdomen/pelvis with contrast to assess upper tracts. UA negative, urine culture negative 09/29/2019. Cysto can be done as an outpatient. Will inform patient of CT results. No further testing recommended at this time, will await CT results. (2) Abnormal PSA: Code(s): R97.20 - Elevated prostate specific antigen [PSA] Status: Acute Assessment and Plan: No new PSA has been drawn in quite some time, will assess as an outpatient, d/t recent straight catheterization a PSA now woul ld likely demonstrate a false positive reading. Urology Consult Note HPI Date Seen: 10/07/19 Requesting Physician: Ijeoma Morillo MD Primary Care Provider: Blane Lane MD Consult Narrative Narrative: Alex Wakefield is a 79 year old male who has been in the hospital for >1 month initially d/t a positive Influenza B test and an ulcerative colitits flare. The patient is somewhat subdued and is a poor historian, his gave his medical history. He was a previous patient of ours who had seen Dr. Conley for an elevated PSA in the past, which resulted in a negative prostate biopsy in 08/2012, his most recent PSA from our record is 7.8. We were consulted d/t ongoing gross hematuria with a negative urine culture on 09/29/2019. Another urine sample was taken yesterday via straight cath which showed a negative UA. His WBC is normal at 5.2 and creatinine is 1.0 as well and stable. His H&H however is low. A retroperitoneal US was done showing increased renal cortices indicating CKD as well as bilateral renal cyts, no CT scans with contrast have been done to date to evaluate the upper tracts. His states his urine has been pretty clear the past few days, he urinates independently, no catheter is placed at this time. She denies gross hematuria prior to this hospital stay and also denies any difficulty with urination at home. He denies dysuria, abdominal pain or flank pain. Review of Systems Cardiovascular: Cardiovascular: Denies chest pain Respiratory: Respiratory: Reports no additional respiratory complaints Gastrointestinal: Gastrointestinal: Denies abdominal pain, Reports diarrhea, Denies nausea and Denies vomiting Genitourinary: Genitourinary: Reports hematuria, Denies dysuria, Denies flank pain, Denies nocturia, Denies urinary frequency and Denies urinary urgency PMFSH Past Medical History Medical History Anemia Cirrhosis Diagnosed in 1974 at [facility]. At that time he had a history of healthy alcohol abuse, and stopped drinking alcohol after that admission. GERD (gastroesophageal reflux disease) History of DVT (deep vein thrombosis) Left lower extremity in August 2019. Hypertension Osteoarthritis Peripheral neuropathy Pulmonary embolism August 2019. Ulcerative colitis Umbilical hernia Surgical History Surgical History History of umbilical hernia repair Hx of bilateral cataract extraction Status post right partial knee replacement Family History Family History Other Unknown family medical history Social History Social History Social History: Patient lives in [place] with his . He was a sql developer dba. His Glo is his surrogate decision maker, and he wishes to be a full code. He smoked up to 2 packs of cigarettes per day for 25 years. He has a history of alcoholism but quit in 1974 after being diagnosed with cirrhosis. No illicit drug use. Smoking packs per day: 2 Smoking cigarettes per day: 40.0 Years smoked: 25 Smoking pack-years: 50.00 Smoking status: Former smoker Tobacco type: cigarettes Alcoh
--- NOTE | 2019-10-07 17:06 | PM.CNNEP ---
Assessment and Plan Assessment and plan (1) Anasarca: Code(s): R60.1 - Generalized edema Status: Acute (2) Hematuria: Code(s): R31.9 - Hematuria, unspecified Status: Acute (3) Anemia: Code(s): D64.9 - Anemia, unspecified Status: Acute Assessment and Plan: . Additional Plan Alex has edema that actually appears to be doing somewhat better according to him and his . He has more edema in his upper extremities and lower extremities but overall, seems to be doing better in general and it should be noted that he was receiving IV diuretic therapy while he was hospitalized at [facility]. Perhaps the interventions of this therapy have finally ?caught up? to him. The concern was brought up that this may be nephrotic syndrome but I find this highly unlikely. Previous urine testing did not demonstrate any evidence of proteinuria and his most recent urinalysis here [facility] also demonstrates no proteinuria either. He does not appear to have any significant risk factors for proteinuria and hence the a for mentioned nephrotic syndrome either. I will admit, that his albumin is quite low and this in of itself may have been the reason for his edema in the 1st place. This coupled with his diminished mobility probably result in the a for mentioned ?anasarca in ?that he had previously. For further evaluation, I will check a random urine to protein creatinine ratio but I suspect this will show there is no significant proteinuria and hence the concern for nephrotic syndrome would be improbable. He might benefit from IV albumin ?chased? by diuretic therapy as a way to improve his swelling/edema that I suspect is more secondary to his hypoalbuminemia in general. I will continue follow the patient with you while remains hospitalized and make further recommendations during his hospital course. Thank you for allowing me participate in the care this patient. History of Present Illness Reason for Consult Consult date: 10/07/19 Reason for consult: Other (Anasarca/Edema) Chief Complaint Chief complaint: Hematuria and anemia. History of Present Illness Narrative: The patient is a 79-year-old male with a past medical history as outlined below who was directly admitted to [facility] from [facility] for further evaluation of hematuria and anemia. He was last admitted here for acute respiratory failure with hypoxia attributed to influenza B infection. He had a somewhat complicated hospital course which included ongoing hypoxia despite conservative therapy that led to bronchoscopy and CT of chest with discovery of a pulmonary embolism as well as DVTs, along with C. diff colitis. [facility] was [facility] August 2009. As noted by admission H&P: since his admission to [facility], he has been weaned from oxygen and concluded his course of antibiotics. He remains on hydrocortisone 20 milligrams b.i.d. for unclear reasons. He has been receiving IV diuretics Q 48 hours due to significant, diffuse body edema. He was noted to have pretty significant hypoalbuminemia and it looks like it 1 time he received an IV dose of albumin. Nutritional status has been a problem with the patient, and he has been started on meal supplementations. He has also been anemic, and his labs have been monitored closely while at [facility], with hemoglobin varying between 7.3 and 8.4. Stool for occult blood was obtained on 3 separate occasions, negative each time. He was given a unit of packed red blood cells as well as IV Venofer for 3 days. Today, his hemoglobin was a bit lower than it had been for several days ago, and the provider caring for the patient was concerned by this and felt the patient needed to be transferred to [place] for further evaluation for cystoscopy. Renal consultation was requested due to his anasarca/edema and the concern that this may be secondary to nephrotic
[2019-10-07 21:11] LABS: Sodium Urine Random 94 meq/L
[2019-10-07 21:12] LABS: Creatinine Urine 61.4 mg/dL; Total Protein Urine Random 10 mg/dL
[2019-10-07 21:14] LABS: Creatinine Urine 63.1 mg/dL; Total Protein Urine Random 10 mg/dL
[2019-10-08 05:56] VITALS: BP 172/96; PULSE 85; RESP 18; TEMP 36.6; O2SAT 94
[2019-10-08 06:10] VITALS: PULSE 96
[2019-10-08] MEDS: LABETALOL HCL INJ 100 MG/20 ML VIAL 10 MG IV PUSH (06:10)
[2019-10-08 06:40] VITALS: BP 118/67
[2019-10-08] MEDS: MESALAMINE 400 MG DELAYED RELEASE CAPSULE 800 MG PO ×2 (07:47→13:03)
[2019-10-08] MEDS: FAMOTIDINE 20 MG TABLET PO (07:47)
[2019-10-08] MEDS: HYDROCORTISONE 10 MG TABLET 20 MG PO (07:47)
[2019-10-08] MEDS: ACETAMINOPHEN 325 MG TABLET 650 MG PO (07:47)
[2019-10-08] MEDS: CHOLECALCIFEROL 1,000 UNIT TABLET 4000 UNITS PO (07:47)
[2019-10-08] MEDS: FOLIC ACID 1 MG TABLET PO (07:48)
[2019-10-08] MEDS: LOSARTAN POTASSIUM 100 MG TABLET PO (07:48)
[2019-10-08] MEDS: APIXABAN 2.5 MG TABLET 5 MG PO (07:48)
[2019-10-08] MEDS: POTASSIUM CHLORIDE 10 MEQ TABLET.ER PO (07:48)
[2019-10-08] MEDS: GABAPENTIN 300 MG CAPSULE 600 MG PO (07:48)
[2019-10-08] MEDS: MULTIVITAMINS THERAPEUTIC TAB (*BKC) 1 TABLET PO (07:48)
[2019-10-08] MEDS: CYANOCOBALAMIN 1,000 MCG TABLET 1000 MCG PO (07:48)
[2019-10-08] MEDS: POLYSACCHARIDE IRON COMPLEX 150 MG CAPSULE PO (07:49)
[2019-10-08] MEDS: ASPIRIN 81 MG CHEWABLE TABLET PO (07:49)
[2019-10-08] MEDS: TOLNAFTATE 1% POWDER 45 GM BTL 1 APPLIC TOPICAL (07:57)
[2019-10-08 08:47] VITALS: PULSE 74; RESP 16
[2019-10-08] MEDS: IPRATROPIUM BR 0.02% INH SOLN 0.5 MG/2.5 ML VIAL INHALATION (08:47)
[2019-10-08] MEDS: ALBUTEROL SULFATE NEB 2.5 MG/0.5 ML INH INHALATION (08:47)
[2019-10-08 08:57] VITALS: PULSE 77; RESP 16
--- NOTE | 2019-10-08 09:14 | WPDUROPN2 ---
Progress Note: A&P Assessment and Plan (1) Hematuria: Code(s): R31.9 - Hematuria, unspecified Status: Acute Assessment and Plan: CT scan with contrast shows a 3mm stone in the right kidney and a 4mm stone in the left kidney, both non obstructive and neither are contributing to the hematuria. Likely that Eliquis versus BPH are the causes of gross hematuria as the Urine is clear of infection as well. Will plan to do a cysto as an outpatient. NO further evaluation needed at this time. Subjective Subjective Date/Time Seen: 10/08/19 09:14 Gross Hematuria Review of Systems Cardiovascular: Cardiovascular: Denies chest pain Respiratory: Respiratory: Reports no additional respiratory complaints Gastrointestinal: Gastrointestinal: Denies abdominal pain, Reports diarrhea, Denies nausea and Denies vomiting Genitourinary: Genitourinary: Denies hematuria, Denies dysuria, Denies flank pain, Denies urinary hesitancy, Denies urinary incontinence and Denies urinary urgency Exam Resp: Effort & Inspection: normal respiratory effort Cardio: Rate: regular rate GI: GI Palp: No Tenderness to palpation present (GI) Extrem: Right upper extremity: edema (bilateral lower extremities) Objective Data Vital Signs Vital Signs: Vital Signs - 24 hr 10/07/19 09:52 10/07/19 10:03 10/07/19 14:00 Temperature 97.6 F Pulse Rate 76 72 80 Respiratory Rate 18 18 18 Blood Pressure 173/96 H Pulse Oximetry 97 10/07/19 15:46 10/07/19 16:01 10/07/19 16:09 Temperature Pulse Rate 84 80 Respiratory Rate 18 18 Blood Pressure 148/96 H Pulse Oximetry 10/07/19 21:40 10/07/19 23:09 10/07/19 23:17 Temperature 97.1 F L Pulse Rate 78 78 80 Respiratory Rate 16 18 18 Blood Pressure 133/73 Pulse Oximetry 100 10/08/19 05:56 10/08/19 06:10 10/08/19 06:40 Temperature 97.8 F Pulse Rate 85 96 Respiratory Rate 18 Blood Pressure 172/96 H 118/67 Pulse Oximetry 94 10/08/19 08:47 Temperature Pulse Rate 74 Respiratory Rate 16 Blood Pressure Pulse Oximetry Intake/Output Intake/Output: Intake & Output 10/05/19 10/06/19 10/07/19 10/08/19 23:59 23:59 23:59 23:59 Intake Total 540 1650 200 Output Total 450 1200 700 Balance 90 450 -500 Meds/Results Medications: Active Medications Generic Name Dose Route Start Last Admin Trade Name Freq PRN Reason Stop Dose Admin Acetaminophen 650 mg 10/06/19 17:19 10/08/19 07:47 Tylenol Tablet PO 650 mg Q6H PRN Administration Mild Pain (1-3) or Fever Albuterol 2.5 mg 10/06/19 21:33 Albuterol Sulf Neb 2.5mg/0.5ml INHALATION Q6HRT PRN Shortness Of Breath Albuterol 2.5 mg 10/07/19 00:00 10/08/19 08:47 Albuterol Sulf Neb 2.5mg/0.5ml INHALATION 2.5 mg Q8HRT AL Administration Apixaban 5 mg 10/06/19 21:35 10/08/19 07:48 Eliquis PO 5 mg Q12HR AL Administration Aspirin 81 mg 10/07/19 09:00 10/08/19 07:49 Aspirin Chewable PO 81 mg DAILY AL Administration Cyanocobalamin 1,000 mcg 10/07/19 09:00 10/08/19 07:48 Vitamin B-12 Tab PO 1,000 mcg DAILY AL Administration Famotidine 20 mg 10/07/19 09:00 10/08/19 07:47 Pepcid PO 20 mg Q12HR AL Administration Folic Acid 1 mg 10/07/19 09:00 10/08/19 07:48 Folic Acid PO 1 mg DAILY AL Administration Gabapentin 600 mg 10/07/19 09:00 10/08/19 07:48 Neurontin PO 600 mg DAILY AL Administration Hydrocortisone 20 mg 10/06/19 21:25 10/08/19 07:47 Cortef Tablet PO 20 mg Q12HR AL Administration Ipratropium Walker 0.5 mg 10/07/19 00:00 10/08/19 08:47 Atrovent Neb INHALATION 0.5 mg Q8HRT AL Administration Losartan Potassium 100 mg 10/07/19 09:00 10/08/19 07:48 Cozaar PO 100 mg DAILY AL Administration Mesalamine 800 mg 10/07/19 09:00 10/08/19 07:47 Delzicol PO 800 mg TID AL Administration Miconazole Nitrate 1 applic 10/07/19 09:00 10/08/19 07:57
[2019-10-08 14:00] VITALS: BP 114/61; PULSE 82; RESP 18; TEMP 36.4; O2SAT 96
--- NOTE | 2019-10-08 14:22 | P.DS_ITS ---
DS: Diagnosis Admitting Diagnosis Admitting Diagnosis: Anemia, unspecified Discharge Diagnosis (1) Anemia: Code(s): D64.9 - Anemia, unspecified Status: Acute Assessment and Plan: * Review of iron studies from 09/30/2019 are consistent with anemia of chronic disease * Urinalysis 09/30/2019 was grossly bloody, with negative urine culture. UA here is negative. Cysto can be done as an outpatient. * He received IV Venofer at outside hospital, 200 milligrams for 3 days. * Patient also started on oral iron supplementation * Stool was negative for occult blood x3. (2) Hematuria: Code(s): R31.9 - Hematuria, unspecified Status: Acute Assessment and Plan: * As above, urinalysis 09/30/2019 was grossly bloody with negative urine culture. * Urinalysis here is negative, pt to have cystscopy as outpatient. * CT scan shows- 1. Small bilateral nonobstructing kidney stones. 2. Airspace and groundglass opacities in lingula and left lower lobe and small nodules in left lower lobe, consistent with pneumonia. (3) Hypertension: Qualifiers: Hypertension type: essential hypertension Qualified Code(s): I10 - Essential (primary) hypertension Code(s): I10 - Essential (primary) hypertension Status: Chronic Assessment and Plan: * Remains on hydrocortisone, 20 milligrams q.i.d. and that will likely need to be tapered down. (4) Anasarca: Code(s): R60.1 - Generalized edema Status: Acute Assessment and Plan: * Multifactorial in etiology * Nephrology consulted , recommendations taken (5) Protein calorie malnutrition: Code(s): E46 - Unspecified protein-calorie malnutrition Status: Acute Assessment and Plan: * Dietary recommendations appreciated. (6) Ulcerative colitis: Qualifiers: Ulcerative colitis location: unspecified ulcerative colitis location Digestive disease complication type: without complication Qualified Code(s): K51.90 - Ulcerative colitis, unspecified, without complications Code(s): K51.90 - Ulcerative colitis, unspecified, without complications Status: Chronic Assessment and Plan: * No acute issues. * Continue mesalamine. (7) Chronic anticoagulation: Code(s): Z79.01 - detention (current) use of anticoagulants Status: Acute Assessment and Plan: * Patient on Eliquis for recent diagnosis of DVT and pulmonary embolism. 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 * Continue PT/OT while here at [facility]. Discharge to home health . DS: Summary Time Spent with Patient Time attestation: Total time spent providing and/or coordinating discharge services:38 minutes on day of discharge Exam Narrative: Exam Narrative: General: Chronically ill-appearing elderly male HEENT: Normocephalic Neck: Supple. Respiratory: Faint crackles at the left base with scattered rhonchi. Cardiovascular: Regular rate and rhythm with S1-S2. Gastrointestinal: Abdomen is soft, protuberant, and nontender with positive bowel sounds. Reducible umbilical hernia. Skin: Warm and dry.
--- NOTE | 2019-10-08 14:22 | PM.DS ---
DS: Diagnosis Admitting Diagnosis Admitting Diagnosis: Anemia, unspecified Discharge Diagnosis (1) Anemia: Code(s): D64.9 - Anemia, unspecified Status: Acute Assessment and Plan: Review of iron studies from 09/30/2019 are consistent with anemia of chronic disease Urinalysis 09/30/2019 was grossly bloody, with negative urine culture. UA here is negative. Cysto can be done as an outpatient. He received IV Venofer at outside hospital, 200 milligrams for 3 days. Patient also started on oral iron supplementation Stool was negative for occult blood x3. (2) Hematuria: Code(s): R31.9 - Hematuria, unspecified Status: Acute Assessment and Plan: As above, urinalysis 09/30/2019 was grossly bloody with negative urine culture. Urinalysis here is negative, pt to have cystscopy as outpatient. CT scan shows- 1. Small bilateral nonobstructing kidney stones. 2. Airspace and groundglass opacities in lingula and left lower lobe and small nodules in left lower lobe, consistent with pneumonia. (3) Hypertension: Qualifiers: Hypertension type: essential hypertension Qualified Code(s): I10 - Essential (primary) hypertension Code(s): I10 - Essential (primary) hypertension Status: Chronic Assessment and Plan: Remains on hydrocortisone, 20 milligrams q.i.d. and that will likely need to be tapered down. (4) Anasarca: Code(s): R60.1 - Generalized edema Status: Acute Assessment and Plan: Multifactorial in etiology Nephrology consulted , recommendations taken (5) Protein calorie malnutrition: Code(s): E46 - Unspecified protein-calorie malnutrition Status: Acute Assessment and Plan: Dietary recommendations appreciated. (6) Ulcerative colitis: Qualifiers: Ulcerative colitis location: unspecified ulcerative colitis location Digestive disease complication type: without complication Qualified Code(s): K51.90 - Ulcerative colitis, unspecified, without complications Code(s): K51.90 - Ulcerative colitis, unspecified, without complications Status: Chronic Assessment and Plan: No acute issues. Continue mesalamine. (7) Chronic anticoagulation: Code(s): Z79.01 - detention (current) use of anticoagulants Status: Acute Assessment and Plan: Patient on Eliquis for recent diagnosis of DVT and pulmonary embolism. 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 Continue PT/OT while here at [facility]. Discharge to home health . DS: Summary Time Spent with Patient Time attestation: Total time spent providing and/or coordinating discharge services:38 minutes on day of discharge Exam Narrative: Exam Narrative: General: Chronically ill-appearing elderly male HEENT: Normocephalic Neck: Supple. Respiratory: Faint crackles at the left base with scattered rhonchi. Cardiovascular: Regular rate and rhythm with S1-S2. Gastrointestinal: Abdomen is soft, protuberant, and nontender with positive bowel sounds. Reducible umbilical hernia. Skin: Warm and dry. Extremities: No cyanosis or clubbing. Weak legs, generalised weakness DS: Data Data Completed and Pending Labs on day of discharge: Labs from last 24 hours 10/07/19 10/07/19 10/07/19 20:40 20:40 20:40 Ur Random Creatinine U Random Total Protein 10 10 Ur Random Sodium 94 Ur Random Chloride U Random Chloride/Creat Urine Creatinine 63.1 10/07/19 10/07/19 20:40 20:40 Ur Random Creatinine Pending U Random Total Protein Ur Random Sodium Ur Random Chloride P
[2019-10-12 15:58] LABS: Chloride Rand Ur 73 mmol/L (32-290); Chloride/Creatinine Rand Ur 124 (23-275); Creatinine Random Urine 59 mg/dL (20-320)
== END 2019-10-08 16:00 | disposition home health service (06) | DRG 725 ==
PROVIDERS: Internal Medicine Nephrology; Physician Assistant; Admitting Provider Family Medicine; PCP Internal Medicine; Visit Provider Family Medicine
DX: N40.1 Benign prostatic hyperplasia with lower urinary tract symptoms (principal); J18.9 Pneumonia, unspecified organism; E46 Unspecified protein-calorie malnutrition; K51.90 Ulcerative colitis, unspecified, without complications; G72.81 Critical illness myopathy; D68.32 Hemorrhagic disorder due to extrinsic circulating anticoagulants; R31.0 Gross hematuria; T45.515A Adverse effect of anticoagulants, initial encounter; Z79.01 Long term (current) use of anticoagulants; D63.8 Anemia in other chronic diseases classified elsewhere; K21.9 Gastro-esophageal reflux disease without esophagitis; G62.9 Polyneuropathy, unspecified; N20.0 Calculus of kidney; K42.9 Umbilical hernia without obstruction or gangrene; M19.90 Unspecified osteoarthritis, unspecified site; K74.60 Unspecified cirrhosis of liver; I10 Essential (primary) hypertension; R60.1 Generalized edema; Z96.651 Presence of right artificial knee joint; Z86.711 Personal history of pulmonary embolism; Z86.718 Personal history of other venous thrombosis and embolism; Z98.42 Cataract extraction status, left eye; Z98.41 Cataract extraction status, right eye; Z87.891 Personal history of nicotine dependence; Z79.82 Long term (current) use of aspirin; Z68.26 Body mass index [BMI] 26.0-26.9, adult
CPT/HCPCS: 36415; 74018; 74177; 80053; 81001; 81050; 82436; 82570; 83735; 84100; 84156; 84300; 84443; 85025; 85610; 94640; 97110; 97161; 97165; 97530; 97535; A9270; G0378; Q9967